=== PATIENT | female | born 1980 | race Caucasian/White ===

== ENCOUNTER → 2017-11-16 20:30 | Outpatient (CLI) | payer OTHER, SELFPAY | PROVIDERS: Family Provider Family Medicine; PCP Family Medicine; Visit Provider Physician Assistant | DX: N30.00 Acute cystitis without hematuria (principal) | CPT/HCPCS: 87086 ==

== ENCOUNTER 2017-11-20 13:00 | Emergency (ER) | payer OTHER, SELFPAY ==
[2017-11-20 13:05] VITALS: BP 182/95; PULSE 74; RESP 15; TEMP 36.9; O2SAT 100; BMI 36.8
--- NOTE | 2017-11-20 13:08 | ED.FEMALEGU ---
HPI - Female Genitourinary General Chief complaint: Urogenital-Female Stated complaint: STATES BLADDER INFECTION NOT GETTING BETTER Time Seen by Provider: 11/20/17 13:08 History of Present Illness HPI Narrative: 37-year-old female here for complaint of having urinary tract infection that is not improving after being placed on Macrobid. She was seen at the walk-in clinic and had urinalysis that was positive for leuko esterase. Urine culture was obtained that did not grow any results. She states she is having symptoms of dysuria and now she also reports having some flank pain. She states that she has had some left pelvic pain for the last several months and that she has a history of having a cyst to that area. She also states she has had a little bit of whitish vaginal discharge. She denies any fevers or chills. She denies any changes in sexual partners. No other concerns or complaints at this time. MD Complaint: UTI and vaginal discharge Related Data Home Medications Medication Instructions Recorded Confirmed losartan 50 mg PO BID #0 08/27/16 11/16/17 buspirone 0.5 tab PO BID #0 01/25/17 11/16/17 Previous Rx's Medication Instructions Recorded nystatin-triamcinolone 1 evi TOPICAL BID #15 gm 11/26/16 loperamide [Imodium A-D] 1 mg PO PRN PRN #30 ml 04/22/17 ondansetron [Zofran ODT] 4 mg SUBLINGUAL Q6HP PRN #10 odt 04/22/17 hydrocodone-acetaminophen 1 tab PO Q6HP PRN #30 tab 05/15/17 diazepam 5 mg PO TID PRN #15 tab 07/23/17 nitrofurantoin 100 mg PO BID 7 Days #14 cap 11/16/17 monohydrate/macrocrystals 100 mg capsule ciprofloxacin HCl 500 mg PO BID #14 tab 11/20/17 hydrocodone-acetaminophen 1 tab PO Q4-6H PRN #5 tab 11/20/17 Allergies Allergy/AdvReac Type Severity Reaction Status Date / Time No Known Drug Allergies Allergy Verified 11/20/17 13:05 Review of Systems Constitutional Denies chills, Denies fever(s), Denies lethargy and Denies weakness Eyes Denies change in vision, Denies eye discharge, Denies irritation and Denies loss of vision ENT Ears, Nose, Mouth, and Throat: Denies change in voice, Denies neck pain and Denies sore throat Cardiovascular Denies chest pain, Denies irregular heart rhythm, Denies lightheadedness, Denies palpitations, Denies dyspnea, Denies dyspnea on exertion and Denies orthopnea Respiratory Denies cough, Denies dyspnea, Denies dyspnea on exertion and Denies wheezing Gastrointestinal Gastrointestinal: Denies abdominal pain, Denies change in bowel habits, Denies diarrhea, Denies nausea and Denies vomiting Genitourinary Reports dysuria Musculoskeletal Denies neck pain Neurologic Denies loss of vision and Denies weakness Endocrine Denies palpitations Allergic/Immunologic Denies wheezing [facility] Medical History Pelvic pain (Acute) Social History Smoking Status: Never smoker Exam Initial Vital Signs Initial Vital Signs: Vital Signs Temperature 98.4 F 11/20/17 13:05 Pulse Rate 74 11/20/17 13:05 Respiratory Rate 15 11/20/17 13:05 Blood Pressure 182/95 H 11/20/17 13:05 Pulse Oximetry 100 11/20/17 13:05 Const General: cooperative and well developed Nutritional Appearance: well nourished Orientation: alert, awake, oriented x3 and not confused [facility] Mouth: oral mucosae normal and moist mucous membranes Eyes Conjunctivae: conjunctivae normal Sclera: sclerae normal Pupils: PERRL EOM: EOM intact bilaterally Resp Effort & Inspection: normal respiratory effort, able to speak in complete sentences, no respiratory distress and no use of accessory muscles Auscultation: clear to auscultation bilaterally, no rales, no rhonchi and no wheezes Cardio Rate: regular rate Rhythm: regular rhythm Heart Sounds: no click, no gallops, no murmurs and no rubs Pulses: normal peripheral pulses GI Inspection: non-distended Palpation: soft, no hepatosplenomegaly, No guarding, No pulsatile mass and tender (Tenderness to suprapubic region and to left pelvic region) Auscultation: normal bowel sounds Speculum Exam - Vagina: normal appearance of the vagina and abnormal vaginal discharge white Speculum Exam - Cervix: normal appearance of the cervix Bimanual Exam- Vagina & Uterus: normal bimanual exam and normal vaginal palpation Bimanual Exam- Adnexa, other: normal adnexae, adnexae mobile and no tenderness Skin General: no rashes or lesions noted, No jaundice and No petechiae Neuro General: alert, oriented x3, gait normal and no focal motor deficits Speech: speech normal Course Orders Ordered: ED Orders 11/20/17 15:30 Complete Blood Count AUTO DIFF Stat Comprehensive Metabolic Panel Stat 11/20/17 15:47 US pelvic complete Stat 11/20/17 15:50 Test Urine Stat Urine Culture Stat Urine Microscopic Stat Wet Prep Tric BV Lacey Stat Discontinued Medications Ceftriaxone Sodium/Dextrose (Rocephin) 1 gm in 50 mls @ 100 mls/hr IV NOW ONE Stop: 11/20/17 17:48 Last Infusion: 11/20/17 17:55 Dose: 0 mls/hr Admin: 11/20/17 17:25 Dose: 100 mls/hr Ketorolac Tromethamine (Toradol) 30 mg IV NOW ONE Stop: 11/20/17 16:46 Last Admin: 11/20/17 16:46 Dose: 30 mg Vital Signs - 8 hr 11/20/17 13:30 11/20/17 15:23 11/20/17 15:26 Temperature 98.6 F Pulse Rate 78 77 Respiratory Rate 22 16 Blood Pressure [Left Arm] 131/70 H 147/90 H 147/90 H Pulse Oximetry 100 11/20/17 17:56 Temperature Pulse Rate 72 Respiratory Rate 15 Blood Pressure [Left Arm] 149/81 H Pulse Oximetry 100 MDM - Female Genitourinary Lab Data Result diagrams: 11/20/17 15:30 11/20/17 15:30 Lab Results 11/20/17 11/20/17 11/20/17 Range/Units 15:30 15:30 15:50 WBC 10.9 (4.5-11.0) X10^3/uL RBC 4.57 (4.0-5.2) X10^6/uL Hgb 11.4 L (12.0-16.0) g/dL Hct 34.3 L (36-46) % MCV 75.1 L (80-100) fL MCH 24.9 L (26-34) PG MCHC 33.2 (30-36) % RDW 16.2 H (11.6-14.8) % Plt Count 374 (150-400) X10^3/uL Neut % (Auto) 61.5 (50-75) % Lymph % (Auto) 29.8 (25-40) % Chester % (Auto) 6.3 (3-14) % Eos % (Auto) 1.7 L (2-4) % Baso % (Auto) 0.7 (0-2) % Neut # (Auto) 6700 H (9769-2737) /uL Sodium 140 (137-145) mmol/L Potassium 3.9 (3.4-5.1) mmol/L Chloride 102 (98-107) mmol/L Carbon Dioxide 28 (22-32) mmol/L BUN 12 (7-17) mg/dL Creatinine 0.80 (0.52-1.04) mg/dL Estimated GFR > 60.0 (>60) mL/min BUN/Creatinine Ratio 15.0 (6-22) Glucose 104 H (70-100) mg/dL Calcium 9.3 (8.4-10.2) mg/dL Total Bilirubin 0.6 (0.2-1.3) mg/dL AST 23 (14-36) IU/L ALT 32 (9-52) IU/L Alkaline Phosphatase 65 (38-126) U/L Total Protein 7.4 (6.3-8.2) g/dL Albumin 4.4 (3.5-5.0) g/dL Globulin 3.0 (1.7-4.1) g/dL Albumin/Globulin Ratio 1.5 (1.0-2.8) Urine RBC 0-1/hpf (0-5/HPF) Urine WBC 1-5/hpf (0-5/HPF) Ur Squamous Epith Cells 5-10 /hpf H Urine Bacteria Few (2-10) H (None) Ur Culture Indicated? Specimen cultured Micro UA Comment Not Reportable Urine Test (Negative) 11/20/17 Range/Units 15:50 WBC (4.5-11.0) X10^3/uL RBC (4.0-5.2) X10^6/uL Hgb (12.0-16.0) g/dL Hct (36-46) % MCV (80-100) fL MCH (26-34) PG MCHC (30-36) % RDW (11.6-14.8) % Plt Count (150-400) X10^3/uL Neut % (Auto) (50-75) % Lymph % (Auto) (25-40) % Chester % (Auto) (3-14) % Eos % (Auto) (2-4) % Baso % (Auto) (0-2) % Neut # (Auto) (6259-5083) /uL Sodium (137-145) mmol/L Potassium (3.4-5.1) mmol/L Chloride (98-107) mmol/L Carbon Dioxide (22-32) mmol/L BUN (7-17) mg/dL Creatinine (0.52-1.04) mg/dL Estimated GFR (>60) mL/min BUN/Creatinine Ratio (6-22) Glucose (70-100) mg/dL Calcium (8.4-10.2) mg/dL Total Bilirubin (0.2-1.3) mg/dL AST (14-36) IU/L ALT (9-52) IU/L Alkaline Phosphatase (38-126) U/L Total Protein (6.3-8.2) g/dL Albumin (3.5-5.0) g/dL Globulin (1.7-4.1) g/dL Albumin/Globulin Ratio (1.0-2.8) Urine RBC (0-5/HPF) Urine WBC (0-5/HPF) Ur Squamous Epith Cells Urine Bacteria (None) Ur Culture Indicated? Micro UA Comment Urine Test Negative (Negative) Imaging Data Pelvic ultrasound: Radiologist's impression: Patient: Emmett Pan MR#: [id number] : 1980 Acct:[id number] Age/Sex: 37 / F Date of Service: 11/20/17 Loc: ED Accession Number: [id number] Procedure: US pelvic complete Ordering Provider: Miguel Mendes PROCEDURE: US PELVIC COMPLETE INDICATIONS: Suprapubic and left pelvic pain TECHNIQUE: Real-time scanning was performed of the pelvic organs, with image documentation. Additional endovaginal scanning was necessary due to incomplete visualization of the adnexal and endometrial structures by transabdominal scanning. COMPARISON: [facility], CT, KIDNEY/ URETER/BLADDER, 05/15/2017, 15:23. [facility], US, PELVIC COMPLETE, 07/25/2012, 11:13. [facility], , PELVIS WITHOUT CONTRAST, 10/27/2012, 18:25. [facility], PELVIC COMPLETE, 12/17/2014, 14:07. [facility], PELVIC COMPLETE, 08/27/2016, 22:05. [facility], , PELVIC COMPLETE, 11/26/2016, 16:54. FINDINGS: Transabdominal scanning: Limited scanning through the kidneys shows no hydronephrosis. No pathologic free abdominal or pelvic fluid. Endovaginal scanning: Uterus: Uterus is normal in size at 11.3 x 5.1 x 6.3 cm. IUD appears appropriately positioned. The endometrium is not well seen secondary to presence of intrauterine device, however no gross sonographic abnormalities identified. Incidental note made of small nabothian cysts. Ovaries: Right adnexa measures 2.8 x 2.5 x 2.4 cm. Left adnexa measures 3.8 x 2.2 x 4.7 cm. There is a 7.8 x 6.2 x 6.7 cm left adnexal cyst which is increased in size compared to prior examinations. Doppler evaluation demonstrates flow to the adnexa bilaterally. IMPRESSION: 1. IUD demonstrated centrally in the endometrium. 2. Persistent left ovarian cyst which is increased in size compared to prior examinations. Recommend gynecology consultation and MRI of the pelvis (gynecologic protocol) to exclude cystic neoplasm. 3. No evidence of adnexal torsion identified in the current study. Please note ultrasound cannot exclude intermittent or partial torsion. Dictated by: Indira Heredia MD, PhD on 11/20/2017 at 16:01 Approved by: Indira Heredia MD, PhD on 11/20/2017 at 16:10 [facility] Narrative Medical decision making narrative: CBC and Chem panel were obtained were unremarkable. Urinalysis does show 1-5 white blood cells. Due to her symptoms not improving with the dysuria and also the flank pain will change antibiotic from Macrobid over to ciprofloxacin. She was given 1 g of Rocephin here in the emergency room. Wet prep was obtained was negative. No adnexal tenderness was appreciated on exam. Ultrasound of the pelvic region shows a 8 cm left adnexal cyst which has increased in size from last imaging. Will have patient follow up with manager of photography next week. [id number] Tylenol or Motrin as needed for any discomfort. For any worsening symptoms return to the emergency room. Discharge Plan Departure Patient Disposition: Home, Self-Care Clinical Impression: Urinary tract infection, Ovarian cyst Discharge Date/Time: 11/20/17 18:10 Interventions: ED Discharge Assessment Last Done: 11/20/17 18:10 Instructions: DI for Ovarian Cyst Activity Restrictions/Additional Instructions: Since symptoms of the urinary tract infection have not improved and you feel like you are having flank pain which is consistent with starting kidney infection, you were given IV antibiotics in the emergency room and change of oral antibiotics. ANTIBIOTICS changed from Macrobid to ciprofloxacin, use as directed. Plenty of fluids. Ultrasound of the left pelvic region shows a cyst to the left ovary area and seems larger than what it was last time It was imaged last year. Follow up with [employer] integration architect for further evaluation and monitoring. Use [id number] Tylenol or Motrin as needed for any discomfort. For breakthrough pain a a small amount of [place] is prescribed use as directed, no driving while on the [place] as it can cause drowsiness.. Follow up with your primary care provider next week for further evaluation. For any worsening symptoms return to the emergency room. Prescriptions: New ciprofloxacin HCl 500 mg tablet 500 mg PO BID Qty: 14 RF: 0 hydrocodone-acetaminophen 5-325 mg tablet 1 tab PO Q4-6H PRN (Reason: pain) Qty: 5 RF: 0 No Action nitrofurantoin monohyd/m-cryst [Macrobid] 100 mg capsule 100 mg PO BID 7 Days Qty: 14 RF: 0 losartan 50 MG tablet 50 mg PO BID Qty: 0 RF: 0 nystatin-triamcinolone 15 GM cream 1 evi Topical BID Qty: 15 RF: 2 buspirone 15 MG tablet 0.5 tab PO BID Qty: 0 RF: 0 ondansetron [Zofran ODT] 4 MG tablet,disintegrating 4 mg Sublingual Q6HP PRNQty: 10 RF: 1 loperamide [Imodium A-D] 1 MG/7.5 ML liquid 1 mg PO PRN PRNQty: 30 RF: 1 hydrocodone-acetaminophen 5 MG/325 MG tablet 1 tab PO Q6HP PRNQty: 30 RF: 0 diazepam 5 MG tablet 5 mg PO TID PRNQty: 15 RF: 0 Referrals: Chapin Fallon MD [Primary Care Provider] -
[2017-11-20 13:30] VITALS: BP 131/70; PULSE 78; RESP 22
[2017-11-20 15:23] VITALS: BP 147/90
[2017-11-20 15:26] VITALS: BP 147/90; PULSE 77; RESP 16; TEMP 37; O2SAT 100
--- NOTE | 2017-11-20 15:47 | DI.US.S_ITS ---
PROCEDURE: US PELVIC COMPLETE INDICATIONS: Suprapubic and left pelvic pain TECHNIQUE: Real-time scanning was performed of the pelvic organs, with image documentation. Additional endovaginal scanning was necessary due to incomplete visualization of the adnexal and endometrial structures by transabdominal scanning. COMPARISON: [facility], CT, KIDNEY/ URETER/BLADDER, 05/15/2017, 15:23. [facility], US, PELVIC COMPLETE, 07/25/2012, 11:13. [facility], MR, PELVIS WITHOUT CONTRAST, 10/27/2012, 18:25. [facility], US, PELVIC COMPLETE, 12/17/2014, 14:07. [facility], US, PELVIC COMPLETE, 08/27/2016, 22:05. [facility], US, PELVIC COMPLETE, 11/26/2016, 16:54. FINDINGS: Transabdominal scanning: Limited scanning through the kidneys shows no hydronephrosis. No pathologic free abdominal or pelvic fluid. Endovaginal scanning: Uterus: Uterus is normal in size at 11.3 x 5.1 x 6.3 cm. IUD appears appropriately positioned. The endometrium is not well seen secondary to presence of intrauterine device, however no gross sonographic abnormalities identified. Incidental note made of small nabothian cysts. Ovaries: Right adnexa measures 2.8 x 2.5 x 2.4 cm. Left adnexa measures 3.8 x 2.2 x 4.7 cm. There is a 7.8 x 6.2 x 6.7 cm left adnexal cyst which is increased in size compared to prior examinations. Doppler evaluation demonstrates flow to the adnexa bilaterally. IMPRESSION: 1. IUD demonstrated centrally in the endometrium. 2. Persistent left ovarian cyst which is increased in size compared to prior examinations. Recommend gynecology consultation and MRI of the pelvis (gynecologic protocol) to exclude cystic neoplasm. 3. No evidence of adnexal torsion identified in the current study. Please note ultrasound cannot exclude intermittent or partial torsion. Dictated by: Indira Heredia MD, PhD on 11/20/2017 at 16:01 Approved by: Indira Heredia MD, PhD on 11/20/2017 at 16:10
[2017-11-20 15:54] LABS: Add Manual Diff / Slide Review NO; Basophils Percent Auto 0.7 % (0-2); Eosinophils Percent Auto 1.7 % (2-4); Hematocrit 34.3 % (36-46); Hemoglobin 11.4 g/dL (12.0-16.0); Lymphocytes Percent Auto 29.8 % (25-40); Mean Corpuscular HGB Conc 33.2 % (30-36); Mean Corpuscular Hemoglobin 24.9 PG (26-34); Mean Corpuscular Volume 75.1 fL (80-100); Monocytes Percent Auto 6.3 % (3-14); Neutrophils Absolute Auto 6700 /uL (3000-5900); Neutrophils Percent Auto 61.5 % (50-75); Platelet Count 374 X10^3/uL (150-400); Red Blood Cell Count 4.57 X10^6/uL (4.0-5.2); Red Cell Distribution Width 16.2 % (11.6-14.8); White Blood Cell Count 10.9 X10^3/uL (4.5-11.0)
[2017-11-20 16:00] LABS: Alanine Aminotransferase 32 IU/L (9-52); Albumin 4.4 g/dL (3.5-5.0); Albumin Globulin Ratio 1.5 (1.0-2.8); Alkaline Phosphatase 65 U/L (38-126); Aspartate Aminotransferase 23 IU/L (14-36); Bilirubin Total 0.6 mg/dL (0.2-1.3); Blood Urea Nitrogen 12 mg/dL (7-17); Calcium 9.3 mg/dL (8.4-10.2); Carbon Dioxide 28 mmol/L (22-32); Chloride 102 mmol/L (98-107); Estimated Glomerular Filt Rate > 60.0 mL/min (>60); Glucose 104 mg/dL (70-100); HEMOLYSIS < 15 (0-50); Potassium 3.9 mmol/L (3.4-5.1); Sodium 140 mmol/L (137-145); Total Protein 7.4 g/dL (6.3-8.2)
[2017-11-20 16:45] LABS: Bacteria Urine Few (2-10); RBC Urine 0-1/HPF (0-5/HPF); Squamous Epithelial Cell Urine 5-10 /HPF; WBC Urine 1-5/HPF (0-5/HPF)
[2017-11-20] MEDS: KETOROLAC 60 MG/2 ML VIAL 30 MG IV (16:46)
[2017-11-20 16:47] LABS: Pregnancy Test Urine Negative (Negative)
[2017-11-20 16:49] LABS: Culture Indicated Urine Specimen Cultured
[2017-11-20] MEDS: CEFTRIAXONE 1 GM/50 ML FROZ.PIGGY IV (17:25)
[2017-11-20 17:56] VITALS: BP 149/81; PULSE 72; RESP 15; O2SAT 100
== END 2017-11-20 18:10 | disposition home or self-care (01) ==
PROVIDERS: Emergency Provider Nurse Practitioner Family; Family Provider Family Medicine; PCP Family Medicine
DX: N39.0 Urinary tract infection, site not specified (principal); N83.209 Unspecified ovarian cyst, unspecified side
CPT/HCPCS: 36591; 76830; 76856; 80053; 81015; 81025; 85025; 87086; 87210; 96365; 96375; 99283; 99284; J1885

== ENCOUNTER → 2018-02-06 13:00 | Outpatient (CLI) | payer OTHER, SELFPAY | PROVIDERS: Family Provider Family Medicine; PCP Family Medicine | DX: Z23 Encounter for immunization (principal) | CPT/HCPCS: 90471; 90686 ==

== ENCOUNTER → 2018-02-25 07:43 | Outpatient (CLI) | payer OTHER, SELFPAY ==
--- NOTE | 2018-02-25 08:07 | DI.CT.S_ITS ---
PROCEDURE: CT LUMBAR SPINE WO CON INDICATIONS: back pain TECHNIQUE: Noncontrast 3 mm thick sections acquired from the T12 level to the sacrum. Sagittal and coronal reformats were constructed. For radiation dose reduction, the following was used: automated exposure control. COMPARISON: None. FINDINGS: Image quality: Excellent. Bones: There is normal bony alignment. No acute vertebral body compression fractures. No suspicious lytic or blastic bony lesions. Small Schmorl's node noted in the inferior endplate of the L2 vertebral body. Central spinal caliber is of normal overall caliber. No pars defects. T12-L1: Disc height is normal. No central stenosis. No neural foraminal narrowing. No definite neural impingement. L1-L2: Disc height is normal. No central stenosis. No neural foraminal narrowing. No definite neural impingement. L2-L3: Disc height is normal. No central stenosis. No neural foraminal narrowing. No definite neural impingement. L3-L4: Disc height is normal. No central stenosis. No neural foraminal narrowing. No definite neural impingement. L4-L5: Disc height is normal. Minimal anterior endplate osteophytosis. No central stenosis. No neural foraminal narrowing. No definite neural impingement. L5-S1: Disc height is normal. Minimal anterior endplate osteophytosis. No central stenosis. No neural foraminal narrowing. No definite neural impingement. Minimal bilateral facet hypertrophy. Soft tissues: No retroperitoneal masses or hematomas. Visualized aorta is normal in caliber. Scattered atherosclerotic calcifications noted in the abdominal aorta and the visualized pelvic vasculature. IMPRESSION: 1. Minimal L4-L5 and L5-S1 degenerative disc disease. 2. Minimal L5-S1 facet arthropathy. 3. No central stenosis 4. No neural foraminal narrowing 5. No definite neural impingement. Dictated by: Indira Heredia MD, PhD on 02/25/2018 at 9:56 Approved by: Indira Heredia MD, PhD on 02/25/2018 at 10:12
== END ==
PROVIDERS: Family Provider Family Medicine; PCP Family Medicine; Visit Provider Nurse Practitioner Family
DX: M54.9 Dorsalgia, unspecified (principal); M54.41 Lumbago with sciatica, right side; M54.42 Lumbago with sciatica, left side
CPT/HCPCS: 72131

== ENCOUNTER → 2018-04-01 16:46 | Outpatient (CLI) | payer OTHER, SELFPAY | PROVIDERS: Family Provider Family Medicine; PCP Family Medicine; Visit Provider Physician Assistant | DX: L02.91 Cutaneous abscess, unspecified (principal) | CPT/HCPCS: 87070; 87075; 87205 ==

== ENCOUNTER → 2018-04-03 10:30 | Outpatient (CLI) | payer OTHER, SELFPAY | PROVIDERS: Family Provider Family Medicine; PCP Family Medicine; Visit Provider Physician Assistant | DX: L02.211 Cutaneous abscess of abdominal wall (principal) | CPT/HCPCS: 87070; 87075; 87205 ==

== ENCOUNTER 2018-04-04 14:19 | Emergency (ER) | payer OTHER, SELFPAY ==
[2018-04-04 14:27] VITALS: BP 184/109; PULSE 82; RESP 18; TEMP 37; O2SAT 99; BMI 37.0
--- NOTE | 2018-04-04 15:17 | ED_ITS ---
HPI - Skin/Abscess/Foreign Bdy <MALCOLM Mann - Last Filed: 04/04/18 19:56> General Chief complaint: Skin/Abscess/Foreign Body Stated complaint: Wound under R breast Time Seen by Provider: 04/04/18 14:41 Source: patient and family Mode of arrival: ambulatory Limitations: no limitations History of Present Illness HPI narrative: Patient is a 38-year-old female nonsmoker who presents with her significant other for a chief complaint of an abscess underneath her right breast. She has had an incision and drainage in the walk-in clinic on 04/01. She was started on cephalexin at this point time. She return to the walk-in clinic on 04/03 to have her packing removed with a complaint of worsening pain and was started on clindamycin at that point in time. Wound cultures were taken both visits. Patient denies fever, denies nausea vomiting. She does note diarrhea since she started the clindamycin. She denies abdominal pain. She comes in the emergency department today because the pain and concern about erythema. Preliminary culture results from 04/03 visit show no growth. Culture results from 04/01 show 1+ Gram-positive cocci Related Data Home Medications Medication Instructions Recorded Confirmed losartan 50 mg PO BID #0 08/27/16 04/06/18 methotrexate (PF) 20 mg/0.4 mL 20 mg SUBCUT QWEEK 03/11/18 04/06/18 subcutaneous auto-injector alprazolam 0.25 mg PO .ONCE PRN 04/04/18 04/06/18 cephalexin 500 mg PO BIDX10 04/04/18 04/06/18 clindamycin HCl 300 mg PO QIDX7 04/04/18 04/06/18 folic acid 1 mg PO DAILY 04/04/18 04/06/18 Allergies Allergy/AdvReac Type Severity Reaction Status Date / Time No Known Drug Allergies Allergy Verified 04/06/18 11:53 Review of Systems <MALCOLM Mann - Last Filed: 04/04/18 19:56> Review of Systems GENERAL: Denies chills, fatigue, malaise, fever, sweats. HEENT: Denies sinus pain, ear pain, sore throat, difficulty swallowing, dizziness. RESPIRATORY: Denies dyspnea, cough, wheezing, hemoptysis, sputum. CARDIOVASCULAR: Denies chest pain, palpitations, orthopnea, edema, GASTROINTESTINAL: Denies nausea, vomiting, abdominal pain, diarrhea, constipation, melena. : Denies dysuria, frequency, incontinence, hematuria, urinary retention. MUSCULOSKELETAL: denies weakness, joint pain, or bony pain SKIN: See HPI NEUROLOGIC: Denies weakness, headache, numbness, change in speech, confusion, seizures, incoordination. PSYCHIATRIC: No concerning psychosocial issues. 12 point review of systems is negative except for those stated above Exam <MELANIE MannBC - Last Filed: 04/04/18 19:56> Narrative Exam Narrative: GENERAL: This is a well-nourished, well-developed patient, in no acute distress HEAD: Atraumatic. Normocephalic. No temporal or scalp tenderness. EYES: Pupils equal round and reactive. Extraocular motions intact. No scleral icterus. No injection or drainage. ENT: Nose without bleeding, purulent drainage or septal hematoma. Throat without erythema, tonsillar hypertrophy or exudate. Uvula midline. Airway patent. NECK: Trachea midline. No JVD or lymphadenopathy. Supple, nontender, no meningeal signs. CARDIOVASCULAR: Regular rate and rhythm without murmurs, gallops, or rubs. RESPIRATORY: Clear to auscultation. Breath sounds equal bilaterally. No wheezes , rales, or rhonchi. No cough. No increased resp effiort. GASTROINTESTINAL: Abdomen soft, non-tender, nondistended. No hepato-splenomegaly , or palpable masses. No guarding. EXTREMITIES: No clubbing, cyanosis, or edema. No joint tenderness, effusion, or edema noted. BACK: Nontender without deformity or crepitance. No flank tenderness. NEURO: AOx3. SKIN: Incision and drainage slight distal to right breast is clean and dry. Packing tail is present. No surrounding erythema from incision site. Noted to have slight erythema in shape of Tegaderm. no palpable fluctuance Initial Vital Signs Initial Vital Signs: Vital Signs Temperature 98.6 F 04/04/18 14:27 Pulse Rate 82 04/04/18 14:27 Respiratory Rate 18 04/04/18 14:27 Blood Pressure 184/109 H 04/04/18 14:27 Pulse Oximetry 99 04/04/18 14:27 <Glory Bedolla DO - Last Filed: 04/06/18 21:05> Initial Vital Signs Initial Vital Signs: Vital Signs Temperature 98.6 F 04/04/18 14:27 Pulse Rate 82 04/04/18 14:27 Respiratory Rate 18 04/04/18 14:27 Blood Pressure 184/109 H 04/04/18 14:27 Pulse Oximetry 99 04/04/18 14:27 Course <MELANIE Mann - Last Filed: 04/04/18 19:56> Orders Ordered: ED Orders 04/04/18 16:00 Complete Blood Count AUTO DIFF Stat Comprehensive Metabolic Panel Stat Lactate (Lactic Acid) Stat Vital Signs - 8 hr 04/04/18 14:27 04/04/18 17:04 Temperature 98.6 F Pulse Rate 82 74 Respiratory Rate 18 18 Blood Pressure 184/109 H Blood Pressure [Left Arm] 159/89 H Pulse Oximetry 99 98 <Glory Bedolla DO - Last Filed: 04/06/18 21:05> Orders Ordered: ED Orders 04/04/18 16:00 Complete Blood Count AUTO DIFF Stat Comprehensive Metabolic Panel Stat Lactate (Lactic Acid) Stat Vital Signs - 8 hr 04/04/18 14:27 04/04/18 17:04 Temperature 98.6 F Pulse Rate 82 74 Respiratory Rate 18 18 Blood Pressure 184/109 H Blood Pressure [Left Arm] 159/89 H Pulse Oximetry 99 98 MDM - Skin/Abscess/Foreign Bdy <MELANIE Mann - Last Filed: 04/04/18 19:56> Lab Data Result diagrams: 04/04/18 16:00 04/04/18 16:00 Lab Results 04/04/18 04/04/18 04/04/18 Range/Units 16:00 16:00 16:00 WBC 9.4 (4.5-11.0) X10^3/uL RBC 4.61 (4.0-5.2) X10^6/uL Hgb 11.0 L (12.0-16.0) g/dL Hct 34.5 L (36-46) % MCV 74.9 L (80-100) fL MCH 23.9 L (26-34) PG MCHC 31.9 (30-36) % RDW 16.0 H (11.6-14.8) % Plt Count 375 (150-400) X10^3/uL Neut % (Auto) 64.8 (50-75) % Lymph % (Auto) 27.2 (25-40) % [place] % (Auto) 5.7 (3-14) % Eos % (Auto) 1.6 L (2-4) % Baso % (Auto) 0.7 (0-2) % Neut # (Auto) 6100 (2170-7449) /uL Sodium 141 (137-145) mmol/L Potassium 4.0 (3.4-5.1) mmol/L Chloride 102 (98-107) mmol/L Carbon Dioxide 26 (22-32) mmol/L BUN 13 (7-17) mg/dL Creatinine 0.70 (0.52-1.04) mg/dL Estimated GFR > 60.0 (>60) mL/min BUN/Creatinine Ratio 18.6 (6-22) Glucose 91 (70-100) mg/dL Lactate 0.5 L (0.7-2.1) mmol/L Calcium 9.2 (8.4-10.2) mg/dL Total Bilirubin 0.8 (0.2-1.3) mg/dL AST 27 (14-36) IU/L ALT 27 (9-52) IU/L Alkaline Phosphatase 66 (38-126) U/L Total Protein 7.4 (6.3-8.2) g/dL Albumin 4.3 (3.5-5.0) g/dL Globulin 3.1 (1.7-4.1) g/dL Albumin/Globulin Ratio 1.4 (1.0-2.8) MDM Narrative Medical decision making narrative: Patient presents requesting a check of the site of her recent incision and drainage. She is afebrile, normotensive not tachycardic and has no signs of sepsis. The site looks good, with no extending erythema. She just started clindamycin yesterday, so I believe that has not had a chance to kick in completely yet. She does not have an elevated lactate does not have an elevated WBC. I do not see any changes necessary to her current therapy at this point time. I discussed at length return precautions including vomiting, fever etc. I discussed follow-up with her primary care provider. She had no questions or concerns upon discharge. <Glory Bedolla, DO - Last Filed: 04/06/18 21:05> Lab Data Lab Results 04/04/18 04/04/18 04/04/18 Range/Units 16:00 16:00 16:00 WBC 9.4 (4.5-11.0) X10^3/uL RBC 4.61 (4.0-5.2) X10^6/uL Hgb 11.0 L (12.0-16.0) g/dL Hct 34.5 L (36-46) % MCV 74.9 L (80-100) fL MCH 23.9 L (26-34) PG MCHC 31.9 (30-36) % RDW 16.0 H (11.6-14.8) % Plt Count 375 (150-400) X10^3/uL Neut % (Auto) 64.8 (50-75) % Lymph % (Auto) 27.2 (25-40) % [place] % (Auto) 5.7 (3-14) % Eos % (Auto) 1.6 L (2-4) % Baso % (Auto) 0.7 (0-2) % Neut # (Auto) 6100 (0686-4604) /uL Sodium 141 (137-145) mmol/L Potassium 4.0 (3.4-5.1) mmol/L Chloride 102 (98-107) mmol/L Carbon Dioxide 26 (22-32) mmol/L BUN 13 (7-17) mg/dL Creatinine 0.70 (0.52-1.04) mg/dL Estimated GFR > 60.0 (>60) mL/min BUN/Creatinine Ratio 18.6 (6-22) Glucose 91 (70-100) mg/dL Lactate 0.5 L (0.7-2.1) mmol/L Calcium 9.2 (8.4-10.2) mg/dL Total Bilirubin 0.8 (0.2-1.3) mg/dL AST 27 (14-36) IU/L ALT 27 (9-52) IU/L Alkaline Phosphatase 66 (38-126) U/L Total Protein 7.4 (6.3-8.2) g/dL Albumin 4.3 (3.5-5.0) g/dL Globulin 3.1 (1.7-4.1) g/dL Albumin/Globulin Ratio 1.4 (1.0-2.8) Discharge Plan Departure Patient Disposition: Home Clinical Impression: Abscess of skin or subcutaneous tissue Discharge Date/Time: 04/04/18 17:14 Interventions: ED Discharge Assessment Last Done: 04/04/18 17:13 Instructions: DI for Skin Abscess Activity Restrictions/Additional Instructions: I do not see any reason to change your antibiotics today. Please follow-up with her primary care provider as discussed. He will have normal WBC count and normal lactate. You do not have a fever in the emergency department. Please continue the clindamycin, Keflex and follow up with her primary care provider and a scheduled. Monitor for fever and vomiting. Please be re-evaluated if any of these occur. Prescriptions: No Action methotrexate (PF) 20 mg/0.4 mL auto-injector 20 mg SUBCUT QWEEK RF: 0 losartan 50 MG tablet 50 mg PO BID Qty: 0 RF: 0 alprazolam 0.25 mg tablet 0.25 mg PO .ONCE PRN (Reason: prior to flight) RF: 0 clindamycin HCl 300 mg capsule 300 mg PO QIDX7 RF: 0 cephalexin 500 mg capsule 500 mg PO BIDX10 RF: 0 folic acid 1 mg Tablet 1 mg PO DAILY RF: 0 Referrals: Chapin Fallon MD [Primary Care Provider] - <Glory Bedolla DO - Last Filed: 04/06/18 21:05> Cosign ED Attending Delfinoature Attestation: I was immediately available in the department for consultation. This documentation has been reviewed and I agree with assessment and plan. Supervised by Glory Bedolla DO
[2018-04-04 16:15] LABS: Add Manual Diff / Slide Review NO; Basophils Percent Auto 0.7 % (0-2); Eosinophils Percent Auto 1.6 % (2-4); Hematocrit 34.5 % (36-46); Lymphocytes Percent Auto 27.2 % (25-40); Mean Corpuscular HGB Conc 31.9 % (30-36); Mean Corpuscular Hemoglobin 23.9 PG (26-34); Mean Corpuscular Volume 74.9 fL (80-100); Monocytes Percent Auto 5.7 % (3-14); Neutrophils Absolute Auto 6100 /uL (1500-7000); Neutrophils Percent Auto 64.8 % (50-75); Platelet Count 375 X10^3/uL (150-400); Red Blood Cell Count 4.61 X10^6/uL (4.0-5.2); White Blood Cell Count 9.4 X10^3/uL (4.5-11.0)
--- NOTE | 2018-04-04 16:19 | PC.NURSE ---
Applied emla cream to site, packing gauze in place, covered with a 2x2 sterile gauze and paper tape. area around site of previous tegaderm is reddened and pt denies adhesive reactions. pt instructed on new dressing change, answered pt's questions and sent home with some supplies. pt will follow up on Saturday.
[2018-04-04 16:26] LABS: Alanine Aminotransferase 27 IU/L (9-52); Albumin 4.3 g/dL (3.5-5.0); Albumin Globulin Ratio 1.4 (1.0-2.8); Alkaline Phosphatase 66 U/L (38-126); Aspartate Aminotransferase 27 IU/L (14-36); BUN Creatinine Ratio 18.6 (6-22); Bilirubin Total 0.8 mg/dL (0.2-1.3); Blood Urea Nitrogen 13 mg/dL (7-17); Calcium 9.2 mg/dL (8.4-10.2); Carbon Dioxide 26 mmol/L (22-32); Chloride 102 mmol/L (98-107); Estimated Glomerular Filt Rate > 60.0 mL/min (>60); Globulin 3.1 g/dL (1.7-4.1); Glucose 91 mg/dL (70-100); HEMOLYSIS < 15 (0-50); Sodium 141 mmol/L (137-145); Total Protein 7.4 g/dL (6.3-8.2)
[2018-04-04 16:27] LABS: Lactate (Lactic Acid) 0.5 mmol/L (0.7-2.1)
[2018-04-04 17:04] VITALS: BP 159/89; PULSE 74; RESP 18; O2SAT 98
== END 2018-04-04 17:14 | disposition home or self-care (01) ==
PROVIDERS: Emergency Provider Nurse Practitioner Family; Family Provider Family Medicine; PCP Family Medicine
DX: N61.1 Abscess of the breast and nipple (principal)
CPT/HCPCS: 36415; 80053; 83605; 85025; 99282; 99283

== ENCOUNTER → 2018-04-18 14:59 | Outpatient (CLI) | payer OTHER, SELFPAY ==
[2018-04-18 16:01] LABS: Add Manual Diff / Slide Review NO; Basophils Percent Auto 0.8 % (0-2); Hematocrit 35.2 % (36-46); Hemoglobin 11.3 g/dL (12.0-16.0); Mean Corpuscular HGB Conc 32.2 % (30-36); Mean Corpuscular Hemoglobin 24.2 PG (26-34); Monocytes Percent Auto 6.9 % (3-14); Neutrophils Absolute Auto 5900 /uL (1500-7000); Neutrophils Percent Auto 61.3 % (50-75); Platelet Count 345 X10^3/uL (150-400); Red Blood Cell Count 4.69 X10^6/uL (4.0-5.2); Red Cell Distribution Width 15.3 % (11.6-14.8); White Blood Cell Count 9.6 X10^3/uL (4.5-11.0)
[2018-04-18 16:14] LABS: Alanine Aminotransferase 31 IU/L (9-52); Albumin 4.4 g/dL (3.5-5.0); Albumin Globulin Ratio 1.4 (1.0-2.8); Alkaline Phosphatase 64 U/L (38-126); Aspartate Aminotransferase 21 IU/L (14-36); BUN Creatinine Ratio 23.3 (6-22); Bilirubin Total 0.8 mg/dL (0.2-1.3); Blood Urea Nitrogen 14 mg/dL (7-17); C-Reactive Protein Quant 1.4 mg/dL (<1.0); Calcium 9.4 mg/dL (8.4-10.2); Carbon Dioxide 28 mmol/L (22-32); Chloride 103 mmol/L (98-107); Estimated Glomerular Filt Rate > 60.0 mL/min (>60); Globulin 3.1 g/dL (1.7-4.1); Glucose 80 mg/dL (70-100); HEMOLYSIS < 15 (0-50); Sodium 141 mmol/L (137-145); Total Protein 7.5 g/dL (6.3-8.2)
[2018-04-18 16:28] LABS: Erythrocyte Sedimentation Rate 31 MM/HR (0-20)
[2018-04-22 13:50] LABS: QuantiFERON TB NEGATIVE (Negative)
== END ==
PROVIDERS: Family Provider Family Medicine; PCP Family Medicine; Visit Provider Internal Medicine Rheumatology
DX: M06.09 Rheumatoid arthritis without rheumatoid factor, multiple sites (principal); Z79.899 Other long term (current) drug therapy
CPT/HCPCS: 36415; 80053; 85025; 85651; 86140; 86480; 86704; 86803; 87340

== ENCOUNTER 2018-07-19 17:03 | Emergency (ER) | payer OTHER, SELFPAY ==
[2018-07-19] VITALS (9 sets, daily range): BP systolic 93–133; BP diastolic 57–85; PULSE 102–125; RESP 15–29; TEMP 37; O2SAT 97–100; BMI 36.7
[2018-07-19] MEDS: ONDANSETRON 4 MG/2 ML INJ IV (17:45)
[2018-07-19] MEDS: SODIUM CHLORIDE 0.9% 1,000 ML 1000 ML IV ×3 (17:45→20:22)
--- NOTE | 2018-07-19 17:48 | PC.NURSE ---
Pt very pale at triage. Pt has felt most of the day like she will pass out with changing position and standing.
[2018-07-19 17:58] LABS: Add Manual Diff / Slide Review NO; Basophils Absolute Auto 0 /uL (0-100); Basophils Percent Auto 0.3 % (0-2); Eosinophils Absolute Auto 100 /uL (0-450); Eosinophils Percent Auto 0.6 % (2-4); Hematocrit 34.9 % (36-46); Hemoglobin 11.3 g/dL (12.0-16.0); Lymphocytes Absolute Auto 700 /uL (1100-4500); Lymphocytes Percent Auto 7.4 % (25-40); Mean Corpuscular HGB Conc 32.3 % (30-36); Mean Corpuscular Hemoglobin 24.2 PG (26-34); Mean Corpuscular Volume 74.8 fL (80-100); Monocytes Absolute Auto 600 /uL (0-900); Monocytes Percent Auto 6.2 % (3-14); Neutrophils Absolute Auto 7800 /uL (1500-7000); Neutrophils Percent Auto 85.5 % (50-75); Platelet Count 308 X10^3/uL (150-400); Red Blood Cell Count 4.67 X10^6/uL (4.0-5.2); Red Cell Distribution Width 16.1 % (11.6-14.8); White Blood Cell Count 9.2 X10^3/uL (4.5-11.0)
--- NOTE | 2018-07-19 18:00 | ED_ITS ---
HPI - Nausea/Vomiting/Diarrhea <RADHA Mann-BC - Last Filed: 07/19/18 21:24> General Chief complaint: Nausea/Vomiting/Diarrhea Stated complaint: VOMITING,NOT FEELING WELL AT ALL Time Seen by Provider: 07/19/18 17:20 Source: patient Mode of arrival: ambulatory Limitations: no limitations History of Present Illness HPI Narrative: The patient is a 38-year-old female with history of rheumatoid arthritis who is a former smoker who presents with a chief complaint of sudden onset nausea vomiting this morning. She states she had fevers but is afebrile in check-in. She has some diffuse abdominal pain. she was seen by her primary care physician a few days ago and was started on doxycycline for a possible infection. She states she has vomited 8-10 times today. She denies any chest pain, shortness of breath. She does complain of an occasional sore throat. she came in this evening because she started feeling lightheaded when she was up and walking around. She also complains of transient tingling in both of her hands. Related Data Home Medications Medication Instructions Recorded Confirmed losartan 50 mg PO BID #0 08/27/16 07/17/18 methotrexate (PF) 20 mg/0.4 mL 20 mg SUBCUT QWEEK 03/11/18 07/17/18 subcutaneous auto-injector folic acid 1 mg PO DAILY 04/04/18 07/17/18 Previous Rx's Medication Instructions Recorded doxycycline monohydrate 100 mg 100 mg PO BID #20 cap 07/17/18 capsule prednisone 20 mg tablet See Rx Instructions PO DAILY #15 07/17/18 tab Allergies Allergy/AdvReac Type Severity Reaction Status Date / Time No Known Drug Allergies Allergy Verified 07/19/18 17:21 Review of Systems <MELANIE MannBC - Last Filed: 07/19/18 21:24> Review of Systems GENERAL: Denies chills, fatigue, malaise, fever, sweats. HEENT: Denies sinus pain, ear pain, sore throat, difficulty swallowing, dizziness. RESPIRATORY: Denies dyspnea, cough, wheezing, hemoptysis, sputum. CARDIOVASCULAR: Denies chest pain, palpitations, orthopnea, edema, GASTROINTESTINAL: See HPI : Denies dysuria, frequency, incontinence, hematuria, urinary retention. MUSCULOSKELETAL: See HPI SKIN: Denies rash, skin lesions, or other NEUROLOGIC: Denies weakness, headache, numbness, change in speech, confusion, seizures, incoordination. PSYCHIATRIC: No concerning psychosocial issues. 12 point review of systems is negative except for those stated above PFSH <MALCOLM Mann - Last Filed: 07/19/18 21:24> Social History Smoking Status: Former smoker Tobacco: How many years used: 3 second hand exposure: No alcohol intake: current (beer 3 times a year. Only on special occasions.) substance use type: does not use Exam <MALCOLM Mann - Last Filed: 07/19/18 21:24> Narrative Exam Narrative: GENERAL: Obese female lying on stretcher HEAD: Atraumatic. Normocephalic. No temporal or scalp tenderness. EYES: Pupils equal round and reactive. Extraocular motions intact. No scleral icterus. No injection or drainage. ENT: Nose without bleeding, purulent drainage or septal hematoma. Throat without erythema, tonsillar hypertrophy or exudate. Uvula midline. Airway patent. NECK: Trachea midline. No JVD or lymphadenopathy. Supple, nontender, no meningeal signs. CARDIOVASCULAR: Regular rate and rhythm without murmurs, gallops, or rubs. RESPIRATORY: Clear to auscultation. Breath sounds equal bilaterally. No wheezes, rales, or rhonchi. No cough. No accessory muscle use. No increased respiratory effort. GASTROINTESTINAL: Abdomen soft, nondistended. No hepato-splenomegaly, or palpable masses. No guarding. diffuse tenderness to palpation. active bowel sounds all 4 quadrants. EXTREMITIES: No clubbing, cyanosis, or edema. No joint tenderness, effusion, or edema noted. BACK: Nontender without deformity or crepitance. No flank tenderness. NEURO: AOx3. SKIN: No rash or erythema. Initial Vital Signs Initial Vital Signs: Vital Signs Temperature 98.6 F 07/19/18 17:21 Pulse Rate 108 H 07/19/18 17:21 Respiratory Rate 15 07/19/18 17:21 Blood Pressure 93/57 L 07/19/18 17:21 Pulse Oximetry 98 07/19/18 17:21 <Gisselle Celis DO - Last Filed: 07/20/18 00:52> Initial Vital Signs Initial Vital Signs: Vital Signs Temperature 98.6 F 07/19/18 17:21 Pulse Rate 108 H 07/19/18 17:21 Respiratory Rate 15 07/19/18 17:21 Blood Pressure 93/57 L 07/19/18 17:21 Pulse Oximetry 98 07/19/18 17:21 <Gisselle Celis DO - Last Filed: 07/20/18 00:52> PERC Score Age greater than or equal to 50 years: No Heart rate greater than or equal to 100 bpm: Yes Room Air O2 Sat less than 95%: No Unilateral leg swelling: No Recent trauma or surgery: No Hemoptysis: No Prior PE or DVT: No Hormone Use: No Total PERC Score: 1 Wells' Criteria for PE Clinical signs and symptoms of PE: No PE is #1 Dx or equally likely: No Heart rate > 100: Yes Immobilization at least 3 days or surg in previous 4 weeks: No History of PE or DVT: No Hemoptysis: No Malignancy w/Treatment within 6 months or palliative: No Wells' PE Score total: 1.5 Course <RADHA Mann-BC - Last Filed: 07/19/18 21:24> Orders Ordered: ED Orders 07/19/18 17:20 Amylase Stat Complete Blood Count AUTO DIFF Stat Comprehensive Metabolic Panel Stat Lactate (Lactic Acid) Stat Lipase Stat 07/19/18 17:28 D Dimer Stat Magnesium Stat Phosphorous Stat 07/19/18 17:46 Influenza A and B by PCR Rapid Stat 07/19/18 17:49 Troponin & CK Cardiac Panel Stat 07/19/18 20:04 EKG-12 Lead Stat Discontinued Medications Sodium Chloride (Normal Saline 0.9%) 1,000 mls @ 1,000 mls/hr IV BOLUS ONE Stop: 07/19/18 18:28 Last Infusion: 07/19/18 18:51 Dose: 0 mls/hr Admin: 07/19/18 17:45 Dose: 1,000 mls/hr Sodium Chloride (Normal Saline 0.9%) 1,000 mls @ 1,000 mls/hr IV BOLUS ONE Stop: 07/19/18 19:14 Last Infusion: 07/19/18 19:51 Dose: 0 mls/hr Admin: 07/19/18 18:53 Dose: 1,000 mls/hr Sodium Chloride (Normal Saline 0.9%) 1,000 mls @ 1,000 mls/hr IV BOLUS ONE Stop: 07/19/18 20:56 Last Infusion: 07/19/18 20:35 Dose: 0 mls/hr Admin: 07/19/18 20:22 Dose: 1,000 mls/hr Sodium Chloride (Normal Saline 0.9%) 1,000 mls @ 1,000 mls/hr IV BOLUS ONE Stop: 07/19/18 21:07 Ketorolac Tromethamine (Toradol) 30 mg IV NOW ONE Stop: 07/19/18 19:33 Last Admin: 07/19/18 19:50 Dose: 30 mg Magnesium Oxide (Mag Ox) 400 mg PO DAILY EBONIE Last Admin: 07/19/18 21:25 Dose: 400 mg Ondansetron HCl (Zofran) 4 mg IV NOW ONE Stop: 07/19/18 17:30 Last Admin: 07/19/18 17:45 Dose: 4 mg Pantoprazole Sodium (Protonix) 40 mg IV NOW ONE Stop: 07/19/18 19:33 Last Admin: 07/19/18 19:50 Dose: 40 mg Vital Signs - 8 hr 07/19/18 17:21 07/19/18 17:46 07/19/18 18:30 Temperature 98.6 F Pulse Rate 108 H 108 H 116 H Pulse Rate [Orthostatic Lying] Pulse Rate [Orthostatic Sitting] Pulse Rate [Orthostatic Standing] Respiratory Rate 15 25 H 21 Blood Pressure 93/57 L Blood Pressure [Left Arm] 115/64 133/73 Blood Pressure [Orthostatic Lying] Blood Pressure [Orthostatic Sitting] Blood Pressure [Orthostatic Standing] Pulse Oximetry 98 100 100 07/19/18 19:30 07/19/18 19:53 07/19/18 20:45 Temperature Pulse Rate 114 H 113 H Pulse Rate [Orthostatic Lying] 116 H Pulse Rate [Orthostatic Sitting] 125 H Pulse Rate [Orthostatic Standing] 121 H Respiratory Rate 18 29 H Blood Pressure Blood Pressure [Left Arm] 125/68 123/62 Blood Pressure [Orthostatic Lying] 128/74 Blood Pressure [Orthostatic Sitting] 133/85 Blood Pressure [Orthostatic Standing] 127/76 Pulse Oximetry 98 98 07/19/18 21:30 07/19/18 21:34 07/19/18 21:58 Temperature Pulse Rate 102 H 103 H Pulse Rate [Orthostatic Lying] Pulse Rate [Orthostatic Sitting] Pulse Rate [Orthostatic Standing] Respiratory Rate 21 18 Blood Pressure 129/73 Blood Pressure [Left Arm] 126/73 Blood Pressure [Orthostatic Lying] Blood Pressure [Orthostatic Sitting] Blood Pressure [Orthostatic Standing] Pulse Oximetry 97 99 99 <Gisselle Celis, DO - Last Filed: 07/20/18 00:52> Orders Ordered: ED Orders 07/19/18 17:20 Amylase Stat Complete Blood Count AUTO DIFF Stat Comprehensive Metabolic Panel Stat Lactate (Lactic Acid) Stat Lipase Stat 07/19/18 17:28 D Dimer Stat Magnesium Stat Phosphorous Stat 07/19/18 17:46 Influenza A and B by PCR Rapid Stat 07/19/18 17:49 Troponin & CK Cardiac Panel Stat 07/19/18 20:04 EKG-12 Lead Stat Discontinued Medications Sodium Chloride (Normal Saline 0.9%) 1,000 mls @ 1,000 mls/hr IV BOLUS ONE Stop: 07/19/18 18:28 Last Infusion: 07/19/18 18:51 Dose: 0 mls/hr Admin: 07/19/18 17:45 Dose: 1,000 mls/hr Sodium Chloride (Normal Saline 0.9%) 1,000 mls @ 1,000 mls/hr IV BOLUS ONE Stop: 07/19/18 19:14 Last Infusion: 07/19/18 19:51 Dose: 0 mls/hr Admin: 07/19/18 18:53 Dose: 1,000 mls/hr Sodium Chloride (Normal Saline 0.9%) 1,000 mls @ 1,000 mls/hr IV BOLUS ONE Stop: 07/19/18 20:56 Last Infusion: 07/19/18 20:35 Dose: 0 mls/hr Admin: 07/19/18 20:22 Dose: 1,000 mls/hr Sodium Chloride (Normal Saline 0.9%) 1,000 mls @ 1,000 mls/hr IV BOLUS ONE Stop: 07/19/18 21:07 Ketorolac Tromethamine (Toradol) 30 mg IV NOW ONE Stop: 07/19/18 19:33 Last Admin: 07/19/18 19:50 Dose: 30 mg Magnesium Oxide (Mag Ox) 400 mg PO DAILY EBONIE Last Admin: 07/19/18 21:25 Dose: 400 mg Ondansetron HCl (Zofran) 4 mg IV NOW ONE Stop: 07/19/18 17:30 Last Admin: 07/19/18 17:45 Dose: 4 mg Pantoprazole Sodium (Protonix) 40 mg IV NOW ONE Stop: 07/19/18 19:33 Last Admin: 07/19/18 19:50 Dose: 40 mg Vital Signs - 8 hr 07/19/18 17:21 07/19/18 17:46 07/19/18 18:30 Temperature 98.6 F Pulse Rate 108 H 108 H 116 H Pulse Rate [Orthostatic Lying] Pulse Rate [Orthostatic Sitting] Pulse Rate [Orthostatic Standing] Respiratory Rate 15 25 H 21 Blood Pressure 93/57 L Blood Pressure [Left Arm] 115/64 133/73 Blood Pressure [Orthostatic Lying] Blood Pressure [Orthostatic Sitting] Blood Pressure [Orthostatic Standing] Pulse Oximetry 98 100 100 07/19/18 19:30 07/19/18 19:53 07/19/18 20:45 Temperature Pulse Rate 114 H 113 H Pulse Rate [Orthostatic Lying] 116 H Pulse Rate [Orthostatic Sitting] 125 H Pulse Rate [Orthostatic Standing] 121 H Respiratory Rate 18 29 H Blood Pressure Blood Pressure [Left Arm] 125/68 123/62 Blood Pressure [Orthostatic Lying] 128/74 Blood Pressure [Orthostatic Sitting] 133/85 Blood Pressure [Orthostatic Standing] 127/76 Pulse Oximetry 98 98 07/19/18 21:30 07/19/18 21:34 07/19/18 21:58 Temperature Pulse Rate 102 H 103 H Pulse Rate [Orthostatic Lying] Pulse Rate [Orthostatic Sitting] Pulse Rate [Orthostatic Standing] Respiratory Rate 21 18 Blood Pressure 129/73 Blood Pressure [Left Arm] 126/73 Blood Pressure [Orthostatic Lying] Blood Pressure [Orthostatic Sitting] Blood Pressure [Orthostatic Standing] Pulse Oximetry 97 99 99 MDM - Nausea/Vomiting/Diarrhea <MALCOLM Mann - Last Filed: 07/19/18 21:24> Lab Data Attestation: I reviewed the patient's lab results. Hemoglobin and hematocrit are within patient's normal limits. Result diagrams: 07/19/18 17:20 07/19/18 17:20 Lab Results 04/10/0107/19/18 07/19/18 Range/Units 17:20 17:20 17:20 WBC 9.2 (4.5-11.0) X10^3/uL RBC 4.67 (4.0-5.2) X10^6/uL Hgb 11.3 L (12.0-16.0) g/dL Hct 34.9 L (36-46) % MCV 74.8 L (80-100) fL MCH 24.2 L (26-34) PG MCHC 32.3 (30-36) % RDW 16.1 H (11.6-14.8) % Plt Count 308 (150-400) X10^3/uL Neut % (Auto) 85.5 H (50-75) % Lymph % (Auto) 7.4 L (25-40) % [place] % (Auto) 6.2 (3-14) % Eos % (Auto) 0.6 L (2-4) % Baso % (Auto) 0.3 (0-2) % Neut # (Auto) 7800 H (3463-4891) /uL Lymph # (Auto) 700 L (2762-3961) /uL [place] # (Auto) 600 (0-900) /uL Eos # (Auto) 100 (0-450) /uL Baso # (Auto) 0 (0-100) /uL D-Dimer (<230) ng/mL Sodium 136 L (137-145) mmol/L Potassium 3.7 (3.4-5.1) mmol/L Chloride 102 (98-107) mmol/L Carbon Dioxide 25 (22-32) mmol/L BUN 18 H (7-17) mg/dL Creatinine 0.90 (0.52-1.04) mg/dL Estimated GFR > 60.0 (>60) mL/min BUN/Creatinine Ratio 20.0 (6-22) Glucose 121 H (70-100) mg/dL Lactate 1.5 (0.7-2.1) mmol/L Calcium 7.9 L (8.4-10.2) mg/dL Phosphorus (2.5-4.5) mg/dL Magnesium (1.6-2.3) mg/dL Total Bilirubin 1.1 (0.2-1.3) mg/dL AST 16 (14-36) IU/L ALT 31 (9-52) IU/L Alkaline Phosphatase 61 (38-126) U/L Total Creatine Kinase (30-135) U/L CK-MB (CK-2) CK-MB (CK-2) Rel Index Troponin I (0.01-0.034) ng/mL Total Protein 6.7 (6.3-8.2) g/dL Albumin 3.9 (3.5-5.0) g/dL Globulin 2.8 (1.7-4.1) g/dL Albumin/Globulin Ratio 1.4 (1.0-2.8) Amylase 34 (30-110) U/L Lipase 71 (23-300) U/L Influenza A & B (PCR) (Negative) 07/19/18 07/19/18 07/19/18 Range/Units 17:28 17:28 17:46 WBC (4.5-11.0) X10^3/uL RBC (4.0-5.2) X10^6/uL Hgb (12.0-16.0) g/dL Hct (36-46) % MCV (80-100) fL MCH (26-34) PG MCHC (30-36) % RDW (11.6-14.8) % Plt Count (150-400) X10^3/uL Neut % (Auto) (50-75) % Lymph % (Auto) (25-40) % [place] % (Auto) (3-14) % Eos % (Auto) (2-4) % Baso % (Auto) (0-2) % Neut # (Auto) (8962-0992) /uL Lymph # (Auto) (3420-6191) /uL [place] # (Auto) (0-900) /uL Eos # (Auto) (0-450) /uL Baso # (Auto) (0-100) /uL D-Dimer 225 (<230) ng/mL Sodium (137-145) mmol/L Potassium (3.4-5.1) mmol/L Chloride (98-107) mmol/L Carbon Dioxide (22-32) mmol/L BUN (7-17) mg/dL Creatinine (0.52-1.04) mg/dL Estimated GFR (>60) mL/min BUN/Creatinine Ratio (6-22) Glucose (70-100) mg/dL Lactate (0.7-2.1) mmol/L Calcium (8.4-10.2) mg/dL Phosphorus 3.8 (2.5-4.5) mg/dL Magnesium 1.5 L (1.6-2.3) mg/dL Total Bilirubin (0.2-1.3) mg/dL AST (14-36) IU/L ALT (9-52) IU/L Alkaline Phosphatase (38-126) U/L Total Creatine Kinase (30-135) U/L CK-MB (CK-2) CK-MB (CK-2) Rel Index Troponin I (0.01-0.034) ng/mL Total Protein (6.3-8.2) g/dL Albumin (3.5-5.0) g/dL Globulin (1.7-4.1) g/dL Albumin/Globulin Ratio (1.0-2.8) Amylase (30-110) U/L Lipase (23-300) U/L Influenza A & B (PCR) Negative (Negative) 07/19/18 Range/Units 17:49 WBC (4.5-11.0) X10^3/uL RBC (4.0-5.2) X10^6/uL Hgb (12.0-16.0) g/dL Hct (36-46) % MCV (80-100) fL MCH (26-34) PG MCHC (30-36) % RDW (11.6-14.8) % Plt Count (150-400) X10^3/uL Neut % (Auto) (50-75) % Lymph % (Auto) (25-40) % [place] % (Auto) (3-14) % Eos % (Auto) (2-4) % Baso % (Auto) (0-2) % Neut # (Auto) (5237-9036) /uL Lymph # (Auto) (2791-3036) /uL [place] # (Auto) (0-900) /uL Eos # (Auto) (0-450) /uL Baso # (Auto) (0-100) /uL D-Dimer (<230) ng/mL Sodium (137-145) mmol/L Potassium (3.4-5.1) mmol/L Chloride (98-107) mmol/L Carbon Dioxide (22-32) mmol/L BUN (7-17) mg/dL Creatinine (0.52-1.04) mg/dL Estimated GFR (>60) mL/min BUN/Creatinine Ratio (6-22) Glucose (70-100) mg/dL Lactate (0.7-2.1) mmol/L Calcium (8.4-10.2) mg/dL Phosphorus (2.5-4.5) mg/dL Magnesium (1.6-2.3) mg/dL Total Bilirubin (0.2-1.3) mg/dL AST (14-36) IU/L ALT (9-52) IU/L Alkaline Phosphatase (38-126) U/L Total Creatine Kinase 39 (30-135) U/L CK-MB (CK-2) TNP CK-MB (CK-2) Rel Index TNP Troponin I < 0.012 (0.01-0.034) ng/mL Total Protein (6.3-8.2) g/dL Albumin (3.5-5.0) g/dL Globulin (1.7-4.1) g/dL Albumin/Globulin Ratio (1.0-2.8) Amylase (30-110) U/L Lipase (23-300) U/L Influenza A & B (PCR) (Negative) Point of Care Testing Test Results Negative Urine Dip Bedside Urine Glucose Negative Bedside Urine Bilirubin - Negative Bedside Urine Ketone - Negative Urine Specific [place] 1.025 Bedside Urine Occult Blood - Negative Bedside Urine pH 5.5 Bedside Urine Protein - Negative Bedside Urine Urobilinogen - Negative Bedside Urine Nitrite - Negative Bedside Urine Leukocytes - Negative Esterase ECG Data Attestation: I personally reviewed and interpreted this ECG as follows: Interpretation: Sinus tachycardia. One hundred [address]. No [address] elevation depression noted. no ectopy noted. [facility] Narrative Medical decision making narrative: The patient is a 38-year-old female who presents with chief complaint of vomiting and nausea since earlier today. She has Zofran at home, but did not take it. She had a CBC, CMP, amylase, lipase and lactate drawn. These were all relatively within normal limits. her nausea was treated with Zofran. She was given 3 L IV fluid. She had a negative set of orthostatics. She was given Toradol for headache. She stated after the Toradol as she had no pain whatsoever. Given her persistent tachycardia, I did obtain an EKG which was sinus tach as well as a D-dimer which was negative. She also had a negative troponin. On her 3rd L, the patient's heart rate decreased. The patient felt better throughout her stay in the emergency department. I did offer her prescription of Zofran upon discharge, but the patient stated she had plenty. I encouraged to follow up with her primary care provider. Discussed return precautions to the emergency department including inability keep down fluids or acute concerns. <Gisselle Celis, DO - Last Filed: 07/20/18 00:52> Lab Data Lab Results 07/19/18 07/19/18 07/19/18 Range/Units 17:20 17:20 17:20 WBC 9.2 (4.5-11.0) X10^3/uL RBC 4.67 (4.0-5.2) X10^6/uL Hgb 11.3 L (12.0-16.0) g/dL Hct 34.9 L (36-46) % MCV 74.8 L (80-100) fL MCH 24.2 L (26-34) PG MCHC 32.3 (30-36) % RDW 16.1 H (11.6-14.8) % Plt Count 308 (150-400) X10^3/uL Neut % (Auto) 85.5 H (50-75) % Lymph % (Auto) 7.4 L (25-40) % [place] % (Auto) 6.2 (3-14) % Eos % (Auto) 0.6 L (2-4) % Baso % (Auto) 0.3 (0-2) % Neut # (Auto) 7800 H (7112-9941) /uL Lymph # (Auto) 700 L (6282-7133) /uL [place] # (Auto) 600 (0-900) /uL Eos # (Auto) 100 (0-450) /uL Baso # (Auto) 0 (0-100) /uL D-Dimer (<230) ng/mL Sodium 136 L (137-145) mmol/L Potassium 3.7 (3.4-5.1) mmol/L Chloride 102 (98-107) mmol/L Carbon Dioxide 25 (22-32) mmol/L BUN 18 H (7-17) mg/dL Creatinine 0.90 (0.52-1.04) mg/dL Estimated GFR > 60.0 (>60) mL/min BUN/Creatinine Ratio 20.0 (6-22) Glucose 121 H (70-100) mg/dL Lactate 1.5 (0.7-2.1) mmol/L Calcium 7.9 L (8.4-10.2) mg/dL Phosphorus (2.5-4.5) mg/dL Magnesium (1.6-2.3) mg/dL Total Bilirubin 1.1 (0.2-1.3) mg/dL AST 16 (14-36) IU/L ALT 31 (9-52) IU/L Alkaline Phosphatase 61 (38-126) U/L Total Creatine Kinase (30-135) U/L CK-MB (CK-2) CK-MB (CK-2) Rel Index Troponin I (0.01-0.034) ng/mL Total Protein 6.7 (6.3-8.2) g/dL Albumin 3.9 (3.5-5.0) g/dL Globulin 2.8 (1.7-4.1) g/dL Albumin/Globulin Ratio 1.4 (1.0-2.8) Amylase 34 (30-110) U/L Lipase 71 (23-300) U/L Influenza A & B (PCR) (Negative) 07/19/18 07/19/18 07/19/18 Range/Units 17:28 17:28 17:46 WBC (4.5-11.0) X10^3/uL RBC (4.0-5.2) X10^6/uL Hgb (12.0-16.0) g/dL Hct (36-46) % MCV (80-100) fL MCH (26-34) PG MCHC (30-36) % RDW (11.6-14.8) % Plt Count (150-400) X10^3/uL Neut % (Auto) (50-75) % Lymph % (Auto) (25-40) % [place] % (Auto) (3-14) % Eos % (Auto) (2-4) % Baso % (Auto) (0-2) % Neut # (Auto) (5915-1427) /uL Lymph # (Auto) (3509-7147) /uL [place] # (Auto) (0-900) /uL Eos # (Auto) (0-450) /uL Baso # (Auto) (0-100) /uL D-Dimer 225 (<230) ng/mL Sodium (137-145) mmol/L Potassium (3.4-5.1) mmol/L Chloride (98-107) mmol/L Carbon Dioxide (22-32) mmol/L BUN (7-17) mg/dL Creatinine (0.52-1.04) mg/dL Estimated GFR (>60) mL/min BUN/Creatinine Ratio (6-22) Glucose (70-100) mg/dL Lactate (0.7-2.1) mmol/L Calcium (8.4-10.2) mg/dL Phosphorus 3.8 (2.5-4.5) mg/dL Magnesium 1.5 L (1.6-2.3) mg/dL Total Bilirubin (0.2-1.3) mg/dL AST (14-36) IU/L ALT (9-52) IU/L Alkaline Phosphatase (38-126) U/L Total Creatine Kinase (30-135) U/L CK-MB (CK-2) CK-MB (CK-2) Rel Index Troponin I (0.01-0.034) ng/mL Total Protein (6.3-8.2) g/dL Albumin (3.5-5.0) g/dL Globulin (1.7-4.1) g/dL Albumin/Globulin Ratio (1.0-2.8) Amylase (30-110) U/L Lipase (23-300) U/L Influenza A & B (PCR) Negative (Negative) 07/19/18 Range/Units 17:49 WBC (4.5-11.0) X10^3/uL RBC (4.0-5.2) X10^6/uL Hgb (12.0-16.0) g/dL Hct (36-46) % MCV (80-100) fL MCH (26-34) PG MCHC (30-36) % RDW (11.6-14.8) % Plt Count (150-400) X10^3/uL Neut % (Auto) (50-75) % Lymph % (Auto) (25-40) % [place] % (Auto) (3-14) % Eos % (Auto) (2-4) % Baso % (Auto) (0-2) % Neut # (Auto) (1497-5544) /uL Lymph # (Auto) (0514-3832) /uL [place] # (Auto) (0-900) /uL Eos # (Auto) (0-450) /uL Baso # (Auto) (0-100) /uL D-Dimer (<230) ng/mL Sodium (137-145) mmol/L Potassium (3.4-5.1) mmol/L Chloride (98-107) mmol/L Carbon Dioxide (22-32) mmol/L BUN (7-17) mg/dL Creatinine (0.52-1.04) mg/dL Estimated GFR (>60) mL/min BUN/Creatinine Ratio (6-22) Glucose (70-100) mg/dL Lactate (0.7-2.1) mmol/L Calcium (8.4-10.2) mg/dL Phosphorus (2.5-4.5) mg/dL Magnesium (1.6-2.3) mg/dL Total Bilirubin (0.2-1.3) mg/dL AST (14-36) IU/L ALT (9-52) IU/L Alkaline Phosphatase (38-126) U/L Total Creatine Kinase 39 (30-135) U/L CK-MB (CK-2) TNP CK-MB (CK-2) Rel Index TNP Troponin I < 0.012 (0.01-0.034) ng/mL Total Protein (6.3-8.2) g/dL Albumin (3.5-5.0) g/dL Globulin (1.7-4.1) g/dL Albumin/Globulin Ratio (1.0-2.8) Amylase (30-110) U/L Lipase (23-300) U/L Influenza A & B (PCR) (Negative) Point of Care Testing Test Results Negative Urine Dip Bedside Urine Glucose Negative Bedside Urine Bilirubin - Negative Bedside Urine Ketone - Negative Urine Specific [place] 1.025 Bedside Urine Occult Blood - Negative Bedside Urine pH 5.5 Bedside Urine Protein - Negative Bedside Urine Urobilinogen - Negative Bedside Urine Nitrite - Negative Bedside Urine Leukocytes - Negative Esterase ECG Data Attestation: I personally reviewed and interpreted this ECG as follows: Prior ECG tracings: available for review Interpretation: Sinus tachycardia rate 117 NM interval [address] changes no S waves in T-wave inversion MDM Narrative Medical decision making narrative: Patient's heart rate did improve significantly. The D-dimer negative and low risk for PE. History of vomiting and overall improved after 3 L of IV fluids. Discharge Plan Departure Patient Disposition: Home Clinical Impression: Acute dehydration Nausea & vomiting Qualifiers: Vomiting type: unspecified Vomiting Intractability: non-intractable Qualified Code(s): R11.2 - Nausea with vomiting, unspecified Discharge Date/Time: 07/19/18 21:59 Interventions: ED Discharge Assessment Last Done: 07/19/18 21:58 Instructions: DI for Dehydration -- Adult, DI for Nausea -- Adult, DI for Vomiting -- Adult Activity Restrictions/Additional Instructions: Today we did lots of lab work, which all came back normal for you. He received 3 L of fluid, IV Zofran for nausea IV Toradol for pain and Protonix for reflux related to vomiting. please do not take any ibuprofen for 6-8 hours after your Toradol. Please push fluids, rest. Please take your Zofran if needed. Please follow up with her primary care provider come back to emergency department for any acute concerns including inability keep down fluids. Prescriptions: No Action methotrexate (PF) 20 mg/0.4 mL auto-injector 20 mg SUBCUT QWEEK RF: 0 prednisone 20 mg tablet See Rx Instructions PO DAILY Qty: 15 RF: 0 doxycycline monohydrate 100 mg capsule 100 mg PO BID Qty: 20 RF: 0 losartan 50 MG tablet 50 mg PO BID Qty: 0 RF: 0 folic acid 1 mg Tablet 1 mg PO DAILY RF: 0 Referrals: Chapin Fallon MD [Primary Care Provider] - Stand Alone Forms: Work Release Note <Gisselle Celis DO - Last Filed: 07/20/18 00:52> Cosign ED Attending Cosignature Attestation: I was immediately available in the department for consultation. Documentation has been reviewed. I agree with assessment and plan.
[2018-07-19 18:04] LABS: Alanine Aminotransferase 31 IU/L (9-52); Albumin 3.9 g/dL (3.5-5.0); Albumin Globulin Ratio 1.4 (1.0-2.8); Alkaline Phosphatase 61 U/L (38-126); Amylase 34 U/L (30-110); Aspartate Aminotransferase 16 IU/L (14-36); Bilirubin Total 1.1 mg/dL (0.2-1.3); Blood Urea Nitrogen 18 mg/dL (7-17); Calcium 7.9 mg/dL (8.4-10.2); Carbon Dioxide 25 mmol/L (22-32); Chloride 102 mmol/L (98-107); Estimated Glomerular Filt Rate > 60.0 mL/min (>60); Globulin 2.8 g/dL (1.7-4.1); Glucose 121 mg/dL (70-100); HEMOLYSIS < 15 (0-50); Lipase 71 U/L (23-300); Potassium 3.7 mmol/L (3.4-5.1); Sodium 136 mmol/L (137-145); Total Protein 6.7 g/dL (6.3-8.2)
[2018-07-19 18:05] LABS: Lactate (Lactic Acid) 1.5 mmol/L (0.7-2.1)
[2018-07-19 18:08] LABS: Magnesium 1.5 mg/dL (1.6-2.3); Phosphorous 3.8 mg/dL (2.5-4.5)
[2018-07-19 18:10] LABS: Influenza A and B by PCR Rapid Negative (Negative)
--- NOTE | 2018-07-19 18:54 | PC.NURSE ---
Pt feeling better after 1L NS. Pt color has improved,no longer pale. Pt denies nausea at this time.
[2018-07-19] MEDS: PANTOPRAZOLE 40 MG VIAL IV (19:50)
[2018-07-19] MEDS: KETOROLAC 60 MG/2 ML VIAL 30 MG IV (19:50)
[2018-07-19 20:13] LABS: Creatine Kinase 39 U/L (30-135)
[2018-07-19 20:24] LABS: D Dimer 225 ng/mL (<230)
[2018-07-19 20:25] LABS: Troponin I < 0.012 ng/mL (0.01-0.034)
[2018-07-19] MEDS: MAGNESIUM OXIDE 400 MG TABLET PO (21:25)
== END 2018-07-19 21:59 | disposition home or self-care (01) ==
PROVIDERS: Emergency Provider Nurse Practitioner Family; Family Provider Family Medicine; PCP Family Medicine
DX: E86.0 Dehydration (principal); R11.2 Nausea with vomiting, unspecified; R50.9 Fever, unspecified; R51 Headache; R10.9 Unspecified abdominal pain; R00.0 Tachycardia, unspecified; R20.2 Paresthesia of skin
CPT/HCPCS: 36591; 80053; 81003; 81025; 82150; 82550; 83605; 83690; 83735; 84100; 84484; 85025; 85379; 87400; 93005; 96361; 96374; 96375; 99284; 99285; C9113; J1885; J2405

== ENCOUNTER → 2018-10-15 12:39 | Outpatient (CLI) | payer OTHER, SELFPAY ==
[2018-10-15 12:58] LABS: Add Manual Diff / Slide Review NO; Basophils Absolute Auto 100 /uL (0-100); Basophils Percent Auto 0.9 % (0-2); Eosinophils Absolute Auto 200 /uL (0-450); Eosinophils Percent Auto 1.7 % (2-4); Hematocrit 33.8 % (36-46); Hemoglobin 10.8 g/dL (12.0-16.0); Lymphocytes Absolute Auto 3000 /uL (1100-4500); Mean Corpuscular Hemoglobin 23.7 PG (26-34); Mean Corpuscular Volume 74.2 fL (80-100); Monocytes Absolute Auto 600 /uL (0-900); Monocytes Percent Auto 6.2 % (3-14); Neutrophils Absolute Auto 5600 /uL (1500-7000); Neutrophils Percent Auto 59.2 % (50-75); Platelet Count 363 X10^3/uL (150-400); Red Blood Cell Count 4.55 X10^6/uL (4.0-5.2); Red Cell Distribution Width 15.8 % (11.6-14.8); White Blood Cell Count 9.5 X10^3/uL (4.5-11.0)
[2018-10-15 13:34] LABS: Alanine Aminotransferase 26 IU/L (9-52); Albumin 4.1 g/dL (3.5-5.0); Albumin Globulin Ratio 1.3 (1.0-2.8); Alkaline Phosphatase 67 U/L (38-126); Aspartate Aminotransferase 22 IU/L (14-36); BUN Creatinine Ratio 16.3 (6-22); Bilirubin Total 0.7 mg/dL (0.2-1.3); Blood Urea Nitrogen 13 mg/dL (7-17); Calcium 9.2 mg/dL (8.4-10.2); Carbon Dioxide 29 mmol/L (22-32); Chloride 103 mmol/L (98-107); Estimated Glomerular Filt Rate > 60.0 mL/min (>60); Globulin 3.2 g/dL (1.7-4.1); Glucose 94 mg/dL (70-100); HEMOLYSIS < 15 (0-50); Potassium 3.9 mmol/L (3.4-5.1); Sodium 140 mmol/L (137-145); Total Protein 7.3 g/dL (6.3-8.2)
[2018-10-15 13:40] LABS: Erythrocyte Sedimentation Rate 37 MM/HR (0-20)
== END ==
PROVIDERS: Family Provider Family Medicine; PCP Family Medicine; Visit Provider Internal Medicine Rheumatology
DX: M06.09 Rheumatoid arthritis without rheumatoid factor, multiple sites (principal); Z79.899 Other long term (current) drug therapy
CPT/HCPCS: 36415; 80053; 85025; 85651; 86140

== ENCOUNTER → 2019-03-02 08:01 | Outpatient (CLI) | payer OTHER, SELFPAY ==
[2019-03-02 08:53] LABS: Add Manual Diff / Slide Review NO; Basophils Absolute Auto 100 /uL (0-100); Basophils Percent Auto 0.8 % (0-2); Eosinophils Absolute Auto 100 /uL (0-450); Eosinophils Percent Auto 1.4 % (2-4); Hematocrit 33.6 % (36-46); Hemoglobin 11.1 g/dL (12.0-16.0); Lymphocytes Absolute Auto 2600 /uL (1100-4500); Lymphocytes Percent Auto 30.2 % (25-40); Mean Corpuscular HGB Conc 33.1 % (30-36); Mean Corpuscular Hemoglobin 24.1 PG (26-34); Mean Corpuscular Volume 72.9 fL (80-100); Monocytes Absolute Auto 500 /uL (0-900); Monocytes Percent Auto 5.6 % (3-14); Neutrophils Absolute Auto 5300 /uL (1500-7000); Platelet Count 336 X10^3/uL (150-400); White Blood Cell Count 8.6 X10^3/uL (4.5-11.0)
[2019-03-02 08:57] LABS: Alanine Aminotransferase 25 IU/L (<35); Albumin 4.1 g/dL (3.5-5.0); Albumin Globulin Ratio 1.5 (1.0-2.8); Alkaline Phosphatase 75 U/L (38-126); Aspartate Aminotransferase 18 IU/L (14-36); BUN Creatinine Ratio 21.4 (6-22); Bilirubin Total 0.6 mg/dL (0.2-1.3); Blood Urea Nitrogen 15 mg/dL (7-17); C-Reactive Protein Quant 1.9 mg/dL (<1.0); Calcium 9.1 mg/dL (8.4-10.2); Carbon Dioxide 29 mmol/L (22-32); Chloride 102 mmol/L (98-107); Estimated Glomerular Filt Rate > 60.0 mL/min (>60); Globulin 2.8 g/dL (1.7-4.1); Glucose 118 mg/dL (70-100); HEMOLYSIS < 15 (0-50); Potassium 4.1 mmol/L (3.4-5.1); Sodium 140 mmol/L (137-145); Total Protein 6.9 g/dL (6.3-8.2)
[2019-03-02 09:53] LABS: Erythrocyte Sedimentation Rate 35 MM/HR (0-20)
== END ==
PROVIDERS: Family Provider Family Medicine; PCP Family Medicine; Visit Provider Internal Medicine Rheumatology
DX: M06.09 Rheumatoid arthritis without rheumatoid factor, multiple sites (principal); Z79.899 Other long term (current) drug therapy
CPT/HCPCS: 36415; 80053; 85025; 85651; 86140

== ENCOUNTER → 2019-09-02 08:57 | Outpatient (CLI) | payer OTHER, SELFPAY ==
[2019-09-02 10:22] LABS: Add Manual Diff / Slide Review NO; Basophils Absolute Auto 100 /uL (0-100); Basophils Percent Auto 0.6 % (0-2); Eosinophils Absolute Auto 200 /uL (0-450); Eosinophils Percent Auto 1.8 % (2-4); Hematocrit 32.4 % (36-46); Hemoglobin 10.9 g/dL (12.0-16.0); Lymphocytes Absolute Auto 2800 /uL (1100-4500); Lymphocytes Percent Auto 29.3 % (25-40); Mean Corpuscular HGB Conc 33.6 % (30-36); Mean Corpuscular Hemoglobin 24.4 PG (26-34); Mean Corpuscular Volume 72.7 fL (80-100); Monocytes Absolute Auto 600 /uL (0-900); Monocytes Percent Auto 5.7 % (3-14); Neutrophils Absolute Auto 6100 /uL (1500-7000); Neutrophils Percent Auto 62.6 % (50-75); Platelet Count 367 X10^3/uL (150-400); Red Blood Cell Count 4.46 X10^6/uL (4.0-5.2); Red Cell Distribution Width 15.6 % (11.6-14.8); White Blood Cell Count 9.7 X10^3/uL (4.5-11.0)
[2019-09-02 10:55] LABS: Erythrocyte Sedimentation Rate 33 MM/HR (0-20)
[2019-09-02 11:03] LABS: Alanine Aminotransferase 34 IU/L (<35); Albumin 4.3 g/dL (3.5-5.0); Albumin Globulin Ratio 1.4 (1.0-2.8); Alkaline Phosphatase 73 U/L (38-126); Aspartate Aminotransferase 29 IU/L (14-36); BUN Creatinine Ratio 17.9 (6-22); Bilirubin Total 0.7 mg/dL (0.2-1.3); Blood Urea Nitrogen 12 mg/dL (7-17); C-Reactive Protein Quant 1.7 mg/dL (<1.0); Calcium 9.5 mg/dL (8.4-10.2); Carbon Dioxide 27 mmol/L (22-32); Chloride 102 mmol/L (98-107); Estimated Glomerular Filt Rate > 60.0 mL/min (>60); Globulin 3.1 g/dL (1.7-4.1); Glucose 95 mg/dL (70-100); HEMOLYSIS < 15 (0-50); Potassium 3.9 mmol/L (3.4-5.1); Sodium 138 mmol/L (137-145); Total Protein 7.4 g/dL (6.3-8.2)
== END ==
PROVIDERS: Family Provider Family Medicine; PCP Family Medicine; Referring Provider Family Medicine; Visit Provider Internal Medicine Rheumatology
DX: M06.09 Rheumatoid arthritis without rheumatoid factor, multiple sites (principal); Z79.899 Other long term (current) drug therapy
CPT/HCPCS: 36415; 80053; 85025; 85651; 86140

== ENCOUNTER → 2021-01-11 13:11 | Outpatient (CLI) | payer OTHER, SELFPAY ==
[2021-01-11 14:20] LABS: C-Reactive Protein Quant 2.2 mg/dL (<1.0)
== END ==
PROVIDERS: PCP Student in an Organized Health Care Education/Training Program; Referring Provider Internal Medicine Rheumatology; Visit Provider Internal Medicine Rheumatology
DX: M05.79 Rheumatoid arthritis with rheumatoid factor of multiple sites without organ or systems involvement (principal)
CPT/HCPCS: 36415; 86140

== ENCOUNTER → 2021-05-18 10:13 | Outpatient (CLI) | payer OTHER, SELFPAY ==
[2021-05-18 11:28] LABS: Add Manual Diff / Slide Review NO; Basophils Absolute Auto 0 /uL (0-100); Basophils Percent Auto 0.5 % (0-2); Eosinophils Absolute Auto 100 /uL (0-450); Eosinophils Percent Auto 1.4 % (2-4); Hematocrit 32.2 % (36-46); Hemoglobin 10.5 g/dL (12.0-16.0); Lymphocytes Absolute Auto 2400 /uL (1100-4500); Lymphocytes Percent Auto 27.1 % (25-40); Mean Corpuscular HGB Conc 32.7 % (30-36); Mean Corpuscular Hemoglobin 23.8 PG (26-34); Mean Corpuscular Volume 72.9 fL (80-100); Monocytes Absolute Auto 400 /uL (0-900); Monocytes Percent Auto 4.4 % (3-14); Neutrophils Absolute Auto 5900 /uL (1500-7000); Neutrophils Percent Auto 66.6 % (50-75); Platelet Count 351 X10^3/uL (150-400); Red Blood Cell Count 4.41 X10^6/uL (4.0-5.2); Red Cell Distribution Width 17.1 % (11.6-14.8); White Blood Cell Count 8.9 X10^3/uL (4.5-11.0)
[2021-05-18 11:46] LABS: Erythrocyte Sedimentation Rate 44 MM/HR (0-20)
[2021-05-18 11:49] LABS: Alanine Aminotransferase 26 IU/L (<35); Albumin 4.1 g/dL (3.5-5.0); Albumin Globulin Ratio 1.4 (1.0-2.8); Alkaline Phosphatase 66 U/L (38-126); Aspartate Aminotransferase 23 IU/L (14-36); BUN Creatinine Ratio 20.3 (6-22); Blood Urea Nitrogen 14 mg/dL (7-17); C-Reactive Protein Quant 2.3 mg/dL (<1.0); Calcium 9.2 mg/dL (8.4-10.2); Carbon Dioxide 29 mmol/L (22-32); Chloride 102 mmol/L (98-107); Estimated Glomerular Filt Rate > 60.0 mL/min (>60); Glucose 95 mg/dL (70-100); HEMOLYSIS < 15 (0-50); Potassium 4.4 mmol/L (3.4-5.1); Sodium 138 mmol/L (137-145); Total Protein 7.1 g/dL (6.3-8.2)
== END ==
PROVIDERS: PCP Student in an Organized Health Care Education/Training Program; Referring Provider Specialist/Technologist Athletic Trainer; Visit Provider Specialist/Technologist Athletic Trainer
DX: M06.09 Rheumatoid arthritis without rheumatoid factor, multiple sites (principal); Z51.81 Encounter for therapeutic drug level monitoring
CPT/HCPCS: 36415; 80053; 85025; 85651; 86140

== ENCOUNTER → 2021-08-17 15:25 | Outpatient (ROUT) | payer OTHER, SELFPAY ==
[2021-08-17 16:34] LABS: COVID-19 CEPHEID PCR (VTM/NP) Negative (Negative)
== END ==
PROVIDERS: PCP Student in an Organized Health Care Education/Training Program; Visit Provider Family Medicine
DX: Z20.822 Contact with and (suspected) exposure to COVID-19 (principal); Z79.899 Other long term (current) drug therapy; M06.09 Rheumatoid arthritis without rheumatoid factor, multiple sites
CPT/HCPCS: U0003; U0005

== ENCOUNTER → 2021-08-30 12:04 | Outpatient (CLI) | payer OTHER, SELFPAY ==
[2021-08-30 14:32] LABS: Add Manual Diff / Slide Review NO; Basophils Absolute Auto 0 /uL (0-100); Basophils Percent Auto 0.6 % (0-2); Eosinophils Absolute Auto 200 /uL (0-450); Eosinophils Percent Auto 1.9 % (2-4); Hematocrit 32.7 % (36-46); Hemoglobin 10.8 g/dL (12.0-16.0); Lymphocytes Absolute Auto 2700 /uL (1100-4500); Lymphocytes Percent Auto 32.1 % (25-40); Mean Corpuscular Hemoglobin 24.6 PG (26-34); Mean Corpuscular Volume 74.5 fL (80-100); Monocytes Absolute Auto 500 /uL (0-900); Neutrophils Absolute Auto 5000 /uL (1500-7000); Neutrophils Percent Auto 59.4 % (50-75); Platelet Count 293 X10^3/uL (150-400); Red Blood Cell Count 4.39 X10^6/uL (4.0-5.2); Red Cell Distribution Width 15.9 % (11.6-14.8); White Blood Cell Count 8.5 X10^3/uL (4.5-11.0)
[2021-08-30 15:11] LABS: Erythrocyte Sedimentation Rate 31 MM/HR (0-20)
[2021-08-30 15:19] LABS: Alanine Aminotransferase 15 IU/L (<35); Albumin Globulin Ratio 1.3 (1.0-2.8); Alkaline Phosphatase 60 U/L (38-126); Aspartate Aminotransferase 25 IU/L (14-36); BUN Creatinine Ratio 17.9 (6-22); Bilirubin Total 0.5 mg/dL (0.2-1.3); Blood Urea Nitrogen 14 mg/dL (7-17); C-Reactive Protein Quant 0.6 mg/dL (<1.0); Carbon Dioxide 30 mmol/L (22-32); Chloride 103 mmol/L (98-107); Estimated Glomerular Filt Rate > 60 mL/min (>60); Globulin 3.2 g/dL (1.7-4.1); Glucose 96 mg/dL (70-100); HEMOLYSIS < 15 (0-50); Potassium 3.8 mmol/L (3.4-5.1); Sodium 139 mmol/L (137-145); Total Protein 7.2 g/dL (6.3-8.2)
== END ==
PROVIDERS: PCP Student in an Organized Health Care Education/Training Program; Referring Provider Specialist/Technologist Athletic Trainer; Visit Provider Specialist/Technologist Athletic Trainer
DX: Z79.899 Other long term (current) drug therapy (principal); M06.09 Rheumatoid arthritis without rheumatoid factor, multiple sites; Z51.81 Encounter for therapeutic drug level monitoring
CPT/HCPCS: 36415; 80053; 85025; 85651; 86140

== ENCOUNTER 2021-09-25 07:04 | Emergency (ER) | payer OTHER, SELFPAY ==
[2021-09-25 07:28] VITALS: BP 209/105; PULSE 75; RESP 26; TEMP 36.6; O2SAT 99; BMI 28.1
--- NOTE | 2021-09-25 07:53 | ED.HA ---
HPI - Headache General Chief Complaint: Headache Stated Complaint: bad headache, lump on head Time Seen by Provider: 09/25/21 07:29 Source: patient Mode of arrival: Ambulatory Limitations: no limitations History of Present Illness HPI Narrative: This is a 41-year-old female with history of rheumatoid arthritis and hypertension on methotrexate and losartan. Patient has had a prior gastric sleep in the past 4 months. She comes to the emergency department with complaint of headache for the past 3 days that is been on the right side, quite severe and today she noticed a lump at the hairline Rosie bit of redness. Patient states that the lump is slightly tender. She has noticed which abuts cool compresses on her forehead and skin in that area and some burning sensation. She does not appreciate any pain in her eye at this point but does have pain wrapping towards the forehead. Patient has not had any fevers. No passing out. She has had nausea but no active vomiting. She denies chest pain or shortness of breath. She denies any GI or urinary symptoms. She has states she cannot take NSAIDs secondary to her gastric sleeve but believes as do I that she can have a dose IM. Patient did take her morning blood pressure medication after arrival. Related Data Home Medications Medication Instructions Recorded Confirmed losartan 50 mg tablet 50 mg PO BID ##0 08/27/16 04/14/19 methotrexate (PF) 20 mg/0.4 mL 20 mg SUBCUT QWEEK 03/11/18 04/14/19 subcutaneous auto-injector folic acid 1 mg tablet 1 mg PO DAILY 04/04/18 04/14/19 Previous Rx's Medication Instructions Recorded prednisone 20 mg tablet See Rx Instructions PO DAILY #15 07/17/18 tabs fluticasone propionate 50 1 spray intranasal BID #15.8 mL 04/14/19 mcg/actuation nasal spray,suspension (Flonase Allergy Relief) gabapentin 300 mg capsule 300 mg PO TID #30 caps 09/25/21 (Neurontin) oxycodone 5 mg tablet 5 mg PO QID PRN pain #20 tabs 09/25/21 valacyclovir 1 gram tablet 1,000 mg PO TID 7 days #21 tabs 09/25/21 (Valtrex) Allergies Allergy/AdvReac Type Severity Reaction Status Date / Time NSAIDS (Non-Steroidal AdvReac Verified 09/25/21 07:27 Anti-Inflamma Review of Systems Review of Systems ROS Unobtainable: All systems reviewed & are unremarkable except as noted in HPI and below Patient History Medical History (Updated 09/25/21 @ 08:42 by Glory Bedolla DO) Pelvic pain Social History Smoking Status: Former smoker Tobacco: How many years used: 3 second hand exposure: No alcohol intake: current (beer 3 times a year. Only on special occasions.) substance use type: does not use Smoking Status: Former smoker alcohol intake frequency: holidays/special occasions only Substance Use Type: marijuana Exam Narrative Exam Narrative: GEN: well nourished, well appearing female, alert and oriented x 3, patient appears to be in moderate distress. HEENT: Atraumatic, pupils are equal round reactive to light, extraocular movements are intact, nares are clear, TMs are clear with no fluid, there is no conjunctival pallor. Throat is clear without any exudates, erythema, tonsillar enlargement or uvular deviation, patient has a small area of swelling just at the hairline that is circular, nonfluctuant non indurated with several small erythematous lesions with developing vesicles tracking back into her hair along a dermatomal pattern on the right side. General: no globe trauma Eyelids: normal inspection Conjunctiva/Sclera: normal inspection Corneas: normal inspection, examined with fluroscein on right, patient does not have any uptake or dendritic lesions appreciated at this time. EOM: intact, no palsy/entrapment Pupils: PERRL, normal accomadation, pupil normal Anterior Chambers: normal inspection, no hypema HEART: Regular rate and rhythm without murmur, clicks, rubs. LUNGS:Lungs clear to auscultation, no wheezes, rales, crackles, chest moves symmetrically ABD:bowel sounds normal, soft, non-tender, no guarding, rebound, rigidity, no masses noted, no hepatosplenomegaly MSCL: Non-tender, no muscle atrophy, muscles strength 5/5 upper and lower extremities, full range of motion, normal gait NEURO:CN 2-12 intact, sensation normal Initial Vital Signs Initial Vital Signs: Vital Signs Temperature 97.8 F 09/25/21 07:28 Pulse Rate 75 09/25/21 07:28 Respiratory Rate 26 H 09/25/21 07:28 Blood Pressure 209/105 H 09/25/21 07:28 Pulse Oximetry 99 09/25/21 07:28 Oxygen Delivery Method 09/25/21 07:28 Course Orders Ordered: Discontinued Medications Fluorescein Sodium (Fluorescein 1 Mg Strip) 1 mg EYE-RIGHT NOW ONE Stop: 09/25/21 08:36 Last Admin: 09/25/21 08:56 Dose: 1 mg Documented By: HAL Ketorolac Tromethamine (Ketorolac 30 Mg/Ml Vial) 30 mg IM NOW ONE Stop: 09/25/21 08:36 Last Admin: 09/25/21 08:52 Dose: 30 mg Documented By: HAL Ondansetron HCl (Ondansetron 4 Mg Odt) 4 mg SL NOW ONE Stop: 09/25/21 08:36 Last Admin: 09/25/21 08:52 Dose: 4 mg Documented By: HAL Proparacaine HCl (Proparacaine 0.5% Ophth Nancy) 1 drops EYE-RIGHT NOW ONE Stop: 09/25/21 08:36 Last Admin: 09/25/21 08:55 Dose: 1 drop Documented By: HAL Vital Signs Vital signs: Vital Signs - 8 hr 09/25/21 07:28 09/25/21 08:28 Temperature 97.8 F Pulse Rate 75 61 Respiratory Rate 26 H 22 Blood Pressure 209/105 H 188/85 H Pulse Oximetry 99 98 Oxygen Delivery Method Room Air Room Air MDM - Headache MDM Narrative Medical decision making narrative: This is a 45-year-old female with several days of headache who is now developed a red spot on her forehead and on examination has exam consistent with shingles tracking in the area of her headache. She does not have any eye involvement at this time appreciated on cursory visual exam but patient was numbed with proparacaine and fluorescein for evaluation and it shows acute dendritic lesions or uptake at this time. Discussed with patient close follow-up and watching of her eye as the sensation is moving towards her eye and there is high potential to have involvement. We discussed the need to follow-up with ophthalmology or come to the emergency department if she develops any pain, sensation or irritation in the eye itself. The reasons behind this. Patient was given a dose of Toradol IM she is not actually allergic to NSAIDs she can not take them orally secondary to having a recent gastric sleeve surgery but discussed as in IM form this should be appropriate and not cause any issues. Patient started on antivirals, she cannot take oral NSAIDs secondary to recent gastric sleeve surgery so Tylenol, narcotic pain medication and offered Neurontin. Patient and I discussed return precautions in terms of eye involvement inside and symptoms to watch for all questions answered. Discharge Plan Departure Patient Disposition: Home Clinical Impression: Shingles Instructions: DI for Shingles Activity Restrictions/Additional Instructions: Follow-up with ophthalmology if there appears to be any involvement close to your eye. If during day time office hours you can follow up. There number is included below. Today on examination there are no lesions in your eye. Take antiviral until completely gone. You may take Tylenol up to a 1000 mg every 6 hours. You can take narcotic pain medication 1-2 tablets every 6 hours as needed for pain. This medication can make you sleepy do not drive, perform hazardous activities or make any major decisions while taking it. This medication will make you constipated please take a stool softener once to twice daily until stools are soft and regular. Also included is a medication that helps significantly with nerve pain all Neurontin you can take this 3 times daily and can be titrated upwards if needed. Prescription sent to [facility]. Return for rapidly worsening symptoms, passing out, involvement of her eye if the eye itself becomes painful, if you start to notice drainage or crusting of the eye, vision changes or other new or concerning symptoms. Prescriptions: New valacyclovir [Valtrex] 1 gram tablet 1,000 mg PO TID 7 Days Qty: 21 0RF gabapentin [Neurontin] 300 mg capsule 300 mg PO TID Qty: 30 0RF oxycodone 5 mg tablet 5 mg PO QID PRN (Reason: pain) Qty: 20 0RF No Action methotrexate (PF) 20 mg/0.4 mL auto-injector 20 mg SUBCUT QWEEK Label Comments: saturday prednisone 20 mg tablet See Rx Instructions PO DAILY Qty: 15 0RF Dose Instruction: 20-60mg PO DAILY; Rx Instructions: Take 3 tabs once for one day, then 2 tabs daily for 6 days fluticasone propionate [Flonase Allergy Relief] 50 mcg/actuation spray,suspension 1 spray NASAL BID Qty: 15.8 0RF Rx Instructions: administer 1 spray into each nostril morning and night losartan 50 MG tablet 50 mg PO BID Qty: 0 folic acid 1 mg Tablet 1 mg PO DAILY Referrals: Paramjit Moreno MD [Physician] - Lizzette Madrigal MD [Primary Care Provider] - Visit Report Forms: Patient Portal/API
[2021-09-25 08:28] VITALS: BP 188/85; PULSE 61; RESP 22; O2SAT 98
[2021-09-25 08:29] VITALS: PULSE 65; O2SAT 100
[2021-09-25 08:30] VITALS: PULSE 76; O2SAT 100
[2021-09-25] MEDS: ONDANSETRON 4 MG ODT SL (08:52)
[2021-09-25] MEDS: KETOROLAC 30 MG/ML VIAL IM (08:52)
[2021-09-25] MEDS: PROPARACAINE 0.5% OPHTH SOL 1 DROPS EYE-RIGHT (08:55)
[2021-09-25] MEDS: FLUORESCEIN 1 MG STRIP EYE-RIGHT (08:56)
[2021-09-25 09:00] VITALS: PULSE 72; O2SAT 99
== END 2021-09-25 09:20 | disposition home or self-care (01) ==
PROVIDERS: Emergency Provider Emergency Medicine; PCP Student in an Organized Health Care Education/Training Program
DX: B02.9 Zoster without complications (principal)
CPT/HCPCS: 96372; 99283; J1885

== ENCOUNTER 2021-10-08 07:21 | Emergency (ER) | payer OTHER, SELFPAY ==
[2021-10-08] VITALS (23 sets, daily range): BP systolic 152–201; BP diastolic 78–112; PULSE 59–91; RESP 12–18; TEMP 36.8; O2SAT 96–100; BMI 25.0
--- NOTE | 2021-10-08 08:02 | DI.US.S_ITS ---
PROCEDURE: US PELVIC LIMITED INDICATIONS: R/O torsion, R/O ov cyst, r/o L-side hydronephrosis TECHNIQUE: Real-time transabdominal scanning was performed of the pelvic organs, with image documentation. COMPARISON: [facility], US, US PELVIC COMPLETE, 11/20/2017, 16:30. [facility] [place] , CT, ABD/PELVIS W/CON (PNL), 02/15/2011, 14:30. [facility], US, US PELVIC COMPLETE, 04/21/2018, 9:10. FINDINGS: Uterus: Uterus is anteverted and normal in size at 10.2 x 6.8 x 6.1 cm. The myometrium is homogeneous. The endometrium measures 9 mm combined thickness. IUD is noted within the endometrium without evidence for in bed mid or displacement. Ovaries: The right ovary measures 2.9 x 2.5 x 4.1 cm. The left ovary measures 11.3 x 8.1 x 6.2 cm. Adjacent to the left adnexa extending into the mid abdomen is a large anechoic cystic lesion with posterior acoustic enhancement measuring 11.0 x 7.5 x 5.9 cm. This measured 9.0 x 6.0 x 6.9 cm on comparison ultrasound dated 04/21/2018. Arterial and venous waveforms are documented bilaterally. Other: Trace amount of free fluid within the pelvis, likely physiologic. Limited comparison of the left kidney demonstrates normal size and echogenicity without evidence of hydronephrosis. IMPRESSION: Large left ovarian cyst simple appearing cyst measuring 11.0 x 7.5 x 5.9 cm likely slightly enlarged from comparison dated 04/21/2018 where it measured 9.0 x 6.0 x 6.9 cm. No current sonographic evidence of torsion. IUD in appropriate position. We strive to produce accurate, complete, and clear reports of imaging services. To assist us in improving patient care, this report was composed using standard report templates and voice recognition software. Therefore, it may contain abnormal punctuation, insertions and/or omissions. Occasional wrong-word or sound-alike substitutions may occur. Though we review the report and make efforts to correct it, we do recommend that the report be read carefully in proper context to recognize any text inaccuracies. Dictated by: Brandon Harrison D.O. on 10/08/2021 at 8:16 Approved by: Brandon Harrison D.O. on 10/08/2021 at 8:26
[2021-10-08 08:09] LABS: Add Manual Diff / Slide Review NO; Basophils Absolute Auto 0 /uL (0-100); Basophils Percent Auto 0.6 % (0-2); Eosinophils Absolute Auto 100 /uL (0-450); Eosinophils Percent Auto 1.2 % (2-4); Hematocrit 32.4 % (36-46); Hemoglobin 10.4 g/dL (12.0-16.0); Lymphocytes Absolute Auto 2000 /uL (1100-4500); Lymphocytes Percent Auto 27.1 % (25-40); Mean Corpuscular HGB Conc 32.1 % (30-36); Mean Corpuscular Hemoglobin 24.1 PG (26-34); Mean Corpuscular Volume 75.2 fL (80-100); Monocytes Absolute Auto 400 /uL (0-900); Monocytes Percent Auto 5.2 % (3-14); Neutrophils Absolute Auto 4800 /uL (1500-7000); Neutrophils Percent Auto 65.9 % (50-75); Platelet Count 299 X10^3/uL (150-400); Red Blood Cell Count 4.31 X10^6/uL (4.0-5.2); Red Cell Distribution Width 15.9 % (11.6-14.8); White Blood Cell Count 7.2 X10^3/uL (4.5-11.0)
[2021-10-08] MEDS: HYDROMORPHONE 0.5 MG INJ IV ×2 (08:10→09:46)
[2021-10-08] MEDS: SODIUM CHLORIDE 0.9% 1,000 ML 100 ML IV (08:10)
[2021-10-08] MEDS: ACETAMINOPHEN 325 MG TABLET 975 MG PO (08:10)
[2021-10-08 08:26] LABS: Alanine Aminotransferase 13 IU/L (<35); Albumin 4.1 g/dL (3.5-5.0); Albumin Globulin Ratio 1.3 (1.0-2.8); Alkaline Phosphatase 59 U/L (38-126); Aspartate Aminotransferase 20 IU/L (14-36); BUN Creatinine Ratio 26.3 (6-22); Bilirubin Total 0.8 mg/dL (0.2-1.3); Blood Urea Nitrogen 15 mg/dL (7-17); Calcium 8.7 mg/dL (8.4-10.2); Carbon Dioxide 26 mmol/L (22-32); Chloride 103 mmol/L (98-107); Estimated Glomerular Filt Rate > 60 mL/min (>60); Globulin 3.2 g/dL (1.7-4.1); Glucose 97 mg/dL (70-100); HEMOLYSIS < 15 (0-50); Potassium 3.9 mmol/L (3.4-5.1); Sodium 138 mmol/L (137-145); Total Protein 7.3 g/dL (6.3-8.2)
[2021-10-08 08:32] LABS: RBC Urine 5-10/HPF (0-5/HPF); Squamous Epithelial Cell Urine 1-5 /HPF (0-5/HPF); WBC Urine 0-1/HPF (0-5/HPF)
[2021-10-08 08:33] LABS: Bacteria Urine Few (2-10); Culture Indicated Urine Cult Not Indicated; Mucus Urine 2+ (Negative)
[2021-10-08] MEDS: OXYCODONE IR 5 MG TABLET PO (11:16)
--- NOTE | 2021-10-08 19:02 | ED_ITS ---
HPI - Abdominal Pain General Chief Complaint: Abdominal Pain Stated Complaint: LOWER LT. ABD. PAIN Source: patient Mode of arrival: Ambulatory History of Present Illness HPI narrative: This patient comes to the emergency department with left lower quadrant abdominal pain which started yesterday. She says it is very similar to the previous ovarian cyst pain she had some time ago. She has had nausea but no vomiting, no fever. She does not believe she is because she has a copper IUD. She had gastric sleeve procedure in May of this year. Related Data Home Medications Medication Instructions Recorded Confirmed losartan 50 mg tablet 50 mg PO BID ##0 08/27/16 04/14/19 methotrexate (PF) 20 mg/0.4 mL 20 mg SUBCUT QWEEK 03/11/18 04/14/19 subcutaneous auto-injector folic acid 1 mg tablet 1 mg PO DAILY 04/04/18 04/14/19 Previous Rx's Medication Instructions Recorded prednisone 20 mg tablet See Rx Instructions PO DAILY #15 07/17/18 tabs fluticasone propionate 50 1 spray intranasal BID #15.8 mL 04/14/19 mcg/actuation nasal spray,suspension (Flonase Allergy Relief) gabapentin 300 mg capsule 300 mg PO TID #30 caps 09/25/21 (Neurontin) oxycodone 5 mg tablet 5 mg PO QID PRN pain #20 tabs 09/25/21 Allergies Allergy/AdvReac Type Severity Reaction Status Date / Time NSAIDS (Non-Steroidal AdvReac Verified 09/25/21 07:27 Anti-Inflamma Review of Systems Review of Systems Narrative: Full system review reveals no significant abnormalities other than as noted above. Patient History Medical History Pelvic pain Social History Smoking Status: Former smoker Tobacco: How many years used: 3 second hand exposure: No alcohol intake: current (beer 3 times a year. Only on special occasions.) substance use type: does not use Smoking Status: Former smoker alcohol intake frequency: holidays/special occasions only Substance Use Type: marijuana Exam Narrative Exam Narrative: GENERAL: Alert, cooperative and in no distress. HEAD: Atraumatic. Normocephalic. EYES: Sclera are clear without icterus. Extraocular movements are full. ENT: No rhinorrhea. Oropharynx is moist. Mouth exam is benign. NECK: Supple. Full range of motion. CARDIOVASCULAR: Normal rate and rhythm without murmur gallop or rub. RESPIRATORY: Clear to auscultation. Breath sounds equal bilaterally. No wheezes, rales, or rhonchi. GASTROINTESTINAL: Mild diffuse abdominal tenderness especially in the left lower quadrant. No guarding or mass. Decreased bowel sounds. EXTREMITIES: No edema, full range of motion. No obvious trauma. BACK: Normal inspection, no CVA tenderness. NEURO: Nonfocal examination, normal speech, normal gait. SKIN: No rash or erythema of visible areas PSYCH: Normally oriented. Normal range of affect. Appropriate behavior Initial Vital Signs Initial Vital Signs: Vital Signs Temperature 98.3 F 10/08/21 07:33 Pulse Rate 83 10/08/21 07:33 Respiratory Rate 18 10/08/21 07:33 Blood Pressure 193/112 H 10/08/21 07:33 Pulse Oximetry 100 10/08/21 07:33 Oxygen Delivery Method 10/08/21 07:33 Course Orders Ordered: Discontinued Medications Acetaminophen (Acetaminophen 325 Mg Tablet) 975 mg PO NOW ONE Stop: 10/08/21 08:04 Last Admin: 10/08/21 08:10 Dose: 975 mg Documented By: KING Hydromorphone HCl (Hydromorphone 0.5 Mg Inj) 0.5 mg IV NOW ONE Stop: 10/08/21 08:04 Last Admin: 10/08/21 08:10 Dose: 0.5 mg Documented By: KING Hydromorphone HCl (Hydromorphone 0.5 Mg Inj) 0.5 mg IV NOW ONE Stop: 10/08/21 09:44 Last Admin: 10/08/21 09:46 Dose: 0.5 mg Documented By: KING Sodium Chloride (Normal Saline 0.9%) 1,000 mls @ 100 mls/hr IV CONT EBONIE Last Admin: 10/08/21 08:10 Dose: 100 mls/hr Documented By: KING Oxycodone HCl (Oxycodone Ir 5 Mg Tablet) 5 mg PO NOW ONE Stop: 10/08/21 11:13 Last Admin: 10/08/21 11:16 Dose: 5 mg Documented By: KING Vital Signs Vital signs: Vital Signs - 8 hr 10/08/21 11:15 10/08/21 11:15 10/08/21 11:30 Pulse Rate 67 Respiratory Rate Blood Pressure 158/78 H 162/88 H Pulse Oximetry 97 Oxygen Delivery Method 10/08/21 11:30 10/08/21 11:45 10/08/21 11:45 Pulse Rate 64 80 Respiratory Rate Blood Pressure 162/91 H Pulse Oximetry 98 98 Oxygen Delivery Method 10/08/21 12:00 10/08/21 12:00 10/08/21 12:15 Pulse Rate 70 Respiratory Rate Blood Pressure 162/95 H 166/92 H Pulse Oximetry 97 Oxygen Delivery Method 10/08/21 12:15 10/08/21 12:30 10/08/21 12:30 Pulse Rate 76 67 Respiratory Rate Blood Pressure 154/90 H Pulse Oximetry 100 96 Oxygen Delivery Method 10/08/21 13:12 Pulse Rate 65 Respiratory Rate 12 Blood Pressure 176/99 H Pulse Oximetry 100 Oxygen Delivery Method Room Air MDM - Abdominal Pain Lab Data Result diagrams: 10/08/21 07:49 10/08/21 07:49 Labs: Lab Results 10/08/21 10/08/21 10/08/21 Range/Units 07:49 07:49 08:00 WBC 7.2 (4.5-11.0) X10^3/uL RBC 4.31 (4.0-5.2) X10^6/uL Hgb 10.4 L (12.0-16.0) g/dL Hct 32.4 L (36-46) % MCV 75.2 L (80-100) fL MCH 24.1 L (26-34) PG MCHC 32.1 (30-36) % RDW 15.9 H (11.6-14.8) % Plt Count 299 (150-400) X10^3/uL Neut % (Auto) 65.9 (50-75) % Lymph % (Auto) 27.1 (25-40) % [place] % (Auto) 5.2 (3-14) % Eos % (Auto) 1.2 L (2-4) % Baso % (Auto) 0.6 (0-2) % Neut # (Auto) 4800 (2670-4666) /uL Lymph # (Auto) 2000 (7844-5921) /uL [place] # (Auto) 400 (0-900) /uL Eos # (Auto) 100 (0-450) /uL Baso # (Auto) 0 (0-100) /uL Sodium 138 (137-145) mmol/L Potassium 3.9 (3.4-5.1) mmol/L Chloride 103 (98-107) mmol/L Carbon Dioxide 26 (22-32) mmol/L BUN 15 (7-17) mg/dL Creatinine 0.57 (0.52-1.04) mg/dL Estimated GFR > 60 (>60) mL/min BUN/Creatinine Ratio 26.3 H (6-22) Glucose 97 (70-100) mg/dL Calcium 8.7 (8.4-10.2) mg/dL Total Bilirubin 0.8 (0.2-1.3) mg/dL AST 20 (14-36) IU/L ALT 13 (<35) IU/L Alkaline Phosphatase 59 (38-126) U/L Total Protein 7.3 (6.3-8.2) g/dL Albumin 4.1 (3.5-5.0) g/dL Globulin 3.2 (1.7-4.1) g/dL Albumin/Globulin Ratio 1.3 (1.0-2.8) Urine RBC 5-10/hpf H (0-5/HPF) Urine WBC 0-1/hpf (0-5/HPF) Ur Squamous Epith Cells 1-5 /hpf (0-5/HPF) Urine Bacteria Few (2-10) H (None) Urine Mucus 2+ H (Negative) Ur Culture Indicated? Cult not indicated Point of care testing: Point of Care Testing Test Results Negative Urine Dip Bedside Urine Glucose Negative Bedside Urine Bilirubin - Negative Bedside Urine Ketone +++ 80 Urine Specific [place] 1.025 Bedside Urine Occult Blood +++ Bedside Urine pH 6 Bedside Urine Protein +/- 15 Bedside Urine Urobilinogen - Negative Bedside Urine Nitrite - Negative Bedside Urine Leukocytes - Negative Esterase Imaging Data US - abdomen: Radiologist's Impression: [address] [address] Ultrasound Report Signed Patient: Emmett Pan MR#: [id number] : 1980 Acct:[id number] Age/Sex: 37 / F Date of Service: 11/20/17 Loc: ED Accession Number: [id number] ?? Procedure: US pelvic complete Ordering Provider: Miguel Mendes PROCEDURE:? US PELVIC COMPLETE ? INDICATIONS:? Suprapubic and left pelvic pain ? TECHNIQUE:? Real-time scanning was performed of the pelvic organs, with image documentation.? Additional endovaginal scanning was necessary due to incomplete visualization of the adnexal and endometrial structures by transabdominal scanning.? ? COMPARISON:? [facility], CT, KIDNEY/ URETER/BLADDER, 05/15/2017, 15:23.? [facility], , PELVIC COMPLETE, 07/25/2012, 11:13.? [facility], MR, PELVIS WITHOUT CONTRAST, 10/27/2012, 18:25.? [facility], PELVIC COMPLETE, 12/17/2014, 14:07.? [facility], PELVIC COMPLETE, 08/27/2016, 22:05.? [facility], , PELVIC COMPLETE, 11/26/2016, 16:54. ? FINDINGS:? Transabdominal scanning:? Limited scanning through the kidneys shows no hydr onephrosis.? No pathologic free abdominal or pelvic fluid.? ? Endovaginal scanning:? Uterus:? Uterus is normal in size at 11.3 x 5.1 x 6.3 cm.? IUD appears appropriately positioned. The endometrium is not well seen secondary to presence of intrauterine device, however no gross sonographic abnormalities identified. Incidental note made of small nabothian cysts. ? Ovaries: Right adnexa measures 2.8 x 2.5 x 2.4 cm. Left adnexa measures 3.8 x 2.2 x 4.7 cm. There is a 7.8 x 6.2 x 6.7 cm left adnexal cyst which is increased in size compared to prior examinations. Doppler evaluation demonstrates flow to the adnexa bilaterally. ? ? IMPRESSION: ? 1. IUD demonstrated centrally in the endometrium. ? 2. Persistent left ovarian cyst which is increased in size compared to prior examinations. Recommend gynecology consultation and MRI of the pelvis (gynecologic protocol) to exclude cystic neoplasm. ? 3. No evidence of adnexal torsion identified in the current study. Please note ultrasound cannot exclude intermittent or partial torsion. ? ? ? Dictated by: Indira Heredia MD, PhD on 11/20/2017 at 16:01 ? ? Approved by: Indira Heredia MD, PhD on 11/20/2017 at 16:10 ? MDM Narrative Medical decision making narrative: Detailed evaluation reveals a large left ovarian cyst without evidence of hydronephrosis or ovarian torsion. test is negative. Symptomatic therapy is recommended. There is no evidence of a ruptured ovarian cyst or hemodynamic instability to suggest intra-abdominal hemorrhage. I think ou tpatient follow-up is appropriate with analgesia is provided. Discharge Plan Departure Patient Disposition: Home Clinical Impression: Ovarian cyst Instructions: Ovarian Cyst Activity Restrictions/Additional Instructions: You have an ovarian cyst. These usually resolve on their own. Once in a while these rupture and cause severe internal bleeding which could be dangerous. This is very rare. If you feel very lightheaded with worsening abdominal pain especially with distension or swelling of the abdomen, you should return to the emergency department right away. Otherwise, this is treated with time and symptomatic management. Take Tylenol 1000 mg every 6 hours and oxycodone 5 mg every 6 hours as needed for more severe pain. Follow-up with your doctor in the next few days for re-evaluation. Prescriptions: No Action methotrexate (PF) 20 mg/0.4 mL auto-injector 20 mg SUBCUT QWEEK Label Comments: saturday prednisone 20 mg tablet See Rx Instructions PO DAILY Qty: 15 0RF Dose Instruction: 20-60mg PO DAILY; Rx Instructions: Take 3 tabs once for one day, then 2 tabs daily for 6 days fluticasone propionate [Flonase Allergy Relief] 50 mcg/actuation spray,suspension 1 spray NASAL BID Qty: 15.8 0RF Rx Instructions: administer 1 spray into each nostril morning and night losartan 50 MG tablet 50 mg PO BID Qty: 0 folic acid 1 mg Tablet 1 mg PO DAILY gabapentin [Neurontin] 300 mg capsule 300 mg PO TID Qty: 30 0RF oxycodone 5 mg tablet 5 mg PO QID PRN (Reason: pain) Qty: 20 0RF Referrals: Reanna Nguyễn MD [Primary Care Provider] - Visit Report Forms: Patient Portal/API
== END 2021-10-08 13:15 | disposition home or self-care (01) ==
PROVIDERS: Emergency Provider Family Medicine Addiction Medicine; PCP Family Medicine
DX: N83.202 Unspecified ovarian cyst, left side (principal); Z97.5 Presence of (intrauterine) contraceptive device; Z98.84 Bariatric surgery status
CPT/HCPCS: 36415; 76830; 76857; 80053; 81003; 81015; 81025; 85025; 96374; 96376; 99284; J1170

== ENCOUNTER 2021-10-10 19:53 | Observation (INO) | payer OTHER, SELFPAY ==
[2021-10-10] VITALS (9 sets, daily range): BP systolic 129–159; BP diastolic 73–90; PULSE 100–120; RESP 18; TEMP 37.2–37.6; O2SAT 97–98
--- NOTE | 2021-10-10 20:22 | ED.ABDPAIN ---
HPI - Abdominal Pain General Chief Complaint: Abdominal Pain Stated Complaint: severe abdominal pain Time Seen by Provider: 10/10/21 20:10 Source: patient Mode of arrival: Ambulatory History of Present Illness HPI narrative: 41-year-old former smoker with history of a known large left-sided ovarian cyst and relatively recent gastric sleeve surgery presents with significant other and a chief complaint of worsening left lower quadrant and lower abdominal pain. She was seen and evaluated here few days ago and had thorough evaluation including an ultrasound which noted her known cyst to have grown to 11 x 7 x 6 cm. Her pain was well controlled and she was discharged home and actually has follow-up tomorrow with her primary care provider to make plans moving forward. She has significant pain, worse with any motion and improves with rest but episodes that it seems to significantly worsen without obvious provocation. She is nauseated and has a poor appetite but denies any vomiting. She has a low-grade fever and denies any dysuria, frequency or urgency. She last had something to drink just prior to arrival but last food, which did not call that well was at about noon. Related Data Home Medications Medication Instructions Recorded Confirmed losartan 50 mg tablet 50 mg PO DAILY ##0 08/27/16 10/11/21 methotrexate (PF) 20 mg/0.4 mL 20 mg SUBCUT QWEEK 03/11/18 10/11/21 subcutaneous auto-injector folic acid 1 mg tablet 1 mg PO DAILY 04/04/18 10/11/21 Previous Rx's Medication Instructions Recorded norethindrone (contraceptive) 0.35 0.35 mg PO DAILY #84 tabs 10/13/21 mg tablet ([facility]) oxycodone-acetaminophen 5 mg-325 1 tab PO Q4H PRN pain #20 tabs 10/13/21 mg tablet (Percocet) Allergies Allergy/AdvReac Type Severity Reaction Status Date / Time NSAIDS (Non-Steroidal AdvReac Verified 09/25/21 07:27 Anti-Inflamma Review of Systems Review of Systems Narrative: GENERAL: See HPI HEENT: Denies sinus pain, ear pain, sore throat, difficulty swallowing, dizziness. RESPIRATORY: Denies dyspnea, cough, wheezing, hemoptysis, sputum. CARDIOVASCULAR: Denies chest pain, palpitations, orthopnea, edema, GASTROINTESTINAL: See HPI : Denies dysuria, frequency, incontinence, hematuria, urinary retention. MUSCULOSKELETAL: denies weakness, joint pain, or bony pain SKIN: Denies rash, skin lesions, or other NEUROLOGIC: Denies weakness, headache, numbness, change in speech, confusion, seizures, incoordination. PSYCHIATRIC: No concerning psychosocial issues. 12 point review of systems is negative except for those stated above Patient History Medical History (Updated 10/11/21 @ 17:58 by Arlene Fields MD) Pelvic pain Rheumatoid arthritis Surgical History (Updated 10/13/21 @ 12:32 by Arlene Fields MD) H/O gastric sleeve Hx of unilateral salpingectomy Social History household members: significant other and children Smoking Status: Former smoker Tobacco: How many years used: 3 second hand exposure: No alcohol intake: current substance use type: does not use Smoking Status: Former smoker alcohol intake frequency: holidays/special occasions only Substance Use Type: marijuana Exam Narrative Exam Narrative: GENERAL: [41] year old patient appears stated age. Well-developed patient, obviously uncomfortable, in pain, rubbing her lower abdomen, tearful and holding an emesis bag HEAD: Atraumatic. Normocephalic. EYES: Pupils equal round and reactive. Extraocular motions intact. No scleral icterus. No injection or drainage. ENT: Nose without bleeding, purulent drainage. Throat without erythema, tonsillar hypertrophy or exudate. Airway patent. NECK: Trachea midline. Non tender CARDIOVASCULAR: Regular rate and rhythm without murmurs, gallops, or rubs. RESPIRATORY: Clear to auscultation. Breath sounds equal bilaterally. No wheezes, rales, or rhonchi. GASTROINTESTINAL: Abdomen soft, distended, significant tenderness in the mid lower abdomen and left lower quadrant, bowel sounds present but decreased EXTREMITIES: No edema or joint tenderness. BACK: Nontender without deformity or crepitance. No flank tenderness. NEURO: AOx3. SKIN: No rash or erythema of visible areas Initial Vital Signs Initial Vital Signs: Vital Signs Temperature 99 F 10/10/21 20:02 Pulse Rate 114 H 10/10/21 20:02 Respiratory Rate 18 10/10/21 20:02 Blood Pressure 159/86 H 10/10/21 20:02 Pulse Oximetry 97 10/10/21 20:02 Oxygen Delivery Method 10/10/21 20:02 Course Orders Ordered: Discontinued Medications Calcium Carbonate (Calcium Carbonate 500 Mg Tab) 1,000 mg PO Q4HR PRN PRN Reason: Dyspepsia Last Admin: 10/12/21 09:21 Dose: 1,000 mg Documented By: JENNA Cefazolin Sodium/Dextrose (Cefazolin 2 Gm/20 Ml Syringe) 2 gm IV NOW ONE Stop: 10/11/21 18:26 Last Admin: 10/11/21 21:55 Dose: 2 gm Documented By: Admin: 10/11/21 19:52 Dose: 2 gm Documented By: SINA Bupivacaine HCl 30 ml/ (Epinephrine HCl 0.15 mg) 0 ml INJ NOW ONE Stop: 10/11/21 23:07 Last Admin: 10/11/21 21:30 Dose: 15 ml Documented By: TEGAN Famotidine (Famotidine 20 Mg/2 Ml Vial) 20 mg IV NOW EBONIE Last Admin: 10/12/21 10:49 Dose: 20 mg Documented By: JENNA Famotidine (Famotidine 20 Mg Tablet) 20 mg PO BID PRN PRN Reason: Reflux, heartburn Fentanyl (Fentanyl 100 Mcg/2 Ml Inj) 0 mcg IV Q5M PRN PRN Reason: Pain, Moderate (4-6) Last Admin: 10/11/21 23:25 Dose: 50 mcg Documented By: Admin: 10/11/21 23:07 Dose: 50 mcg Documented By: GUSTAVO Hydromorphone HCl (Hydromorphone 0.5 Mg Inj) 0.5 mg IV Q1HR PRN PRN Reason: Pain, Severe (7-10) Last Admin: 10/11/21 19:52 Dose: 0.5 mg Documented By: Admin: 10/11/21 18:07 Dose: 0.5 mg Documented By: Admin: 10/11/21 15:23 Dose: 0.5 mg Documented By: Admin: 10/11/21 13:51 Dose: 0.5 mg Documented By: Admin: 10/11/21 12:44 Dose: 0.5 mg Documented By: Admin: 10/11/21 09:25 Dose: 0.5 mg Documented By: CARMELA(2) Admin: 10/11/21 06:20 Dose: 0.5 mg Documented By: Admin: 10/11/21 03:46 Dose: 0.5 mg Documented By: Admin: 10/11/21 00:21 Dose: 0.5 mg Documented By: Admin: 10/10/21 20:54 Dose: 0.5 mg Documented By: MARCELINA Hydromorphone HCl (Hydromorphone 0.5 Mg Inj) 0.5 mg IV NOW ONE Stop: 10/10/21 22:30 Last Admin: 10/10/21 22:35 Dose: 0.5 mg Documented By: GERMAN Hydromorphone HCl (Hydromorphone 2 Mg Inj) 0 mg IV Q5M PRN PRN Reason: Pain, Moderate (4-6) Last Admin: 10/11/21 23:26 Dose: 0.5 mg Documented By: Admin: 10/11/21 23:08 Dose: 0.5 mg Documented By: GUSTAVO Hydromorphone HCl (Hydromorphone 0.5 Mg Inj) 0.5 mg IV Q2H PRN PRN Reason: Pain, Moderate (4-6) Last Admin: 10/12/21 11:51 Dose: 0.5 mg Documented By: Admin: 10/12/21 07:56 Dose: 0.5 mg Documented By: Admin: 10/12/21 04:52 Dose: 0.5 mg Documented By: Admin: 10/12/21 00:42 Dose: 0.5 mg Documented By: SINA Sodium Chloride (Normal Saline 0.9%) 1,000 mls @ 1,000 mls/hr IV BOLUS ONE Stop: 10/10/21 21:33 Last Admin: 10/10/21 20:55 Dose: Not Given Documented By: MARCELINA Lactated Ringer's (Lactated Ringers) 1,000 mls @ 1,000 mls/hr IV BOLUS ONE Stop: 10/10/21 21:38 Last Infusion: 10/10/21 22:30 Dose: 0 mls/hr Documented By: Admin: 10/10/21 20:54 Dose: 1,000 mls/hr Documented By: MARCELINA Lactated Ringer's (Lactated Ringers) 1,000 mls @ 125 mls/hr IV CONT EBONIE Last Infusion: 10/11/21 07:39 Dose: 0 mls/hr Documented By: CARMELA(3) Admin: 10/11/21 00:20 Dose: 125 mls/hr Documented By: JYOTI Sodium Chloride (Normal Saline 0.9%) 1,000 mls @ 125 mls/hr IV CONT EBONIE Lactated Ringer's (Lactated Ringers) 1,000 mls @ 100 mls/hr IV CONT EBONIE Last Admin: 10/12/21 04:53 Dose: 100 mls/hr Documented By: Infusion: 10/12/21 04:53 Dose: 100 mls/hr Documented By: Admin: 10/11/21 22:42 Dose: 100 mls/hr Documented By: Infusion: 10/11/21 22:42 Dose: 100 mls/hr Documented By: Admin: 10/11/21 13:49 Dose: 100 mls/hr Documented By: JYOTI Lactated Ringer's (Lactated Ringers) 1,000 mls @ 42 mls/hr IV CONT EBONIE Last Admin: 10/12/21 00:31 Dose: Not Given Documented By: SINA Lorazepam (Lorazepam 2 Mg/Ml Inj) 0.25 mg IV NOW PRN PRN Reason: Anxiety Last Admin: 10/11/21 23:07 Dose: 0.25 mg Documented By: GUSTAVO Losartan Potassium (Losartan 50 Mg Tablet) 50 mg PO DAILY [facility] Last Admin: 10/13/21 09:14 Dose: 50 mg Documented By: Admin: 10/12/21 08:11 Dose: 50 mg Documented By: JENNA Meperidine HCl (Meperidine 50 Mg/Ml Inj) 12.5 mg IV PACUNOW PRN PRN Reason: Mild pain or shivering Metoclopramide HCl (Metoclopramide 10 Mg/2 Ml Inj) 10 mg IV NOW PRN PRN Reason: Nausea And Vomiting Ondansetron HCl (Ondansetron 4 Mg/2 Ml Inj) 4 mg IV NOW ONE Stop: 10/10/21 20:40 Last Admin: 10/10/21 20:54 Dose: 4 mg Documented By: MARCELINA Ondansetron HCl (Ondansetron 4 Mg/2 Ml Inj) 4 mg IV NOW PRN PRN Reason: Nausea And Vomiting Last Admin: 10/11/21 23:07 Dose: 4 mg Documented By: GUSTAVO Ondansetron HCl (Ondansetron 4 Mg/2 Ml Inj) 4 mg IV Q6HR PRN PRN Reason: Nausea And Vomiting Oxycodone/Acetaminophen (Oxycodone/Acetaminophen 5/325 Tablet) 1 tab PO PACUNOW PRN PRN Reason: Mild or Moderate Pain Oxycodone/Acetaminophen (Oxycodone/Acetaminophen 5/325 Tablet) 1 tab PO Q4HR PRN PRN Reason: Pain, Moderate (4-6) Last Admin: 10/13/21 13:18 Dose: 1 tab Documented By: Admin: 10/13/21 09:13 Dose: 1 tab Documented By: Admin: 10/13/21 05:18 Dose: 1 tab Documented By: Admin: 10/12/21 21:02 Dose: 1 tab Documented By: Admin: 10/12/21 17:19 Dose: 1 tab Documented By: Admin: 10/12/21 13:41 Dose: 1 tab Documented By: Admin: 10/12/21 08:56 Dose: 1 tab Documented By: JENNA Simethicone (Simethicone 80 Mg Tablet) 80 mg PO QID PRN PRN Reason: Flatulence Last Admin: 10/13/21 09:23 Dose: 80 mg Documented By: JENNA Sodium Chloride (Sodium Chloride 0.9% Flush) 10 ml IV PRN PRN PRN Reason: Flush Sodium Chloride (Sodium Chloride 0.9% Flush) 10 ml IV BID EBONIE Last Admin: 10/13/21 09:14 Dose: 10 ml Documented By: Admin: 10/12/21 21:02 Dose: 10 ml Documented By: KENYATTA Vital Signs Vital signs: Vital Signs - 8 hr 10/10/21 20:02 10/10/21 20:20 10/10/21 21:10 Temperature 99 F 99.7 F H Pulse Rate 114 H 109 H Respiratory Rate 18 18 Blood Pressure 159/86 H 135/90 135/79 Pulse Oximetry 97 98 Oxygen Delivery Method Room Air Room Air 10/10/21 21:19 10/10/21 21:30 10/10/21 21:30 Temperature Pulse Rate 107 H 100 H Respiratory Rate Blood Pressure 129/73 Pulse Oximetry 98 98 Oxygen Delivery Method MDM - Abdominal Pain Lab Data Result diagrams: 10/11/21 11:03 10/10/21 20:20 Labs: Lab Results 10/10/21 10/10/21 10/10/21 Range/Units 20:20 20:20 20:20 WBC 11.0 (4.5-11.0) X10^3/uL RBC 4.44 (4.0-5.2) X10^6/uL Hgb 10.9 L (12.0-16.0) g/dL Hct 33.6 L (36-46) % MCV 75.6 L (80-100) fL MCH 24.6 L (26-34) PG MCHC 32.5 (30-36) % RDW 16.1 H (11.6-14.8) % Plt Count 334 (150-400) X10^3/uL Neut % (Auto) 73.1 (50-75) % Lymph % (Auto) 18.6 L (25-40) % [place] % (Auto) 7.1 (3-14) % Eos % (Auto) 0.7 L (2-4) % Baso % (Auto) 0.5 (0-2) % Neut # (Auto) 8000 H (8063-7217) /uL Lymph # (Auto) 2000 (0711-2195) /uL [place] # (Auto) 800 (0-900) /uL Eos # (Auto) 100 (0-450) /uL Baso # (Auto) 100 (0-100) /uL Sodium Cancelled 138 Potassium Cancelled 3.6 Chloride Cancelled 101 Carbon Dioxide Cancelled 22 BUN Cancelled 12 Creatinine Cancelled 0.61 Estimated GFR Cancelled > 60 BUN/Creatinine Ratio Cancelled 19.7 Glucose Cancelled 100 Lactate (0.7-2.1) mmol/L Calcium Cancelled 9.0 Total Bilirubin Cancelled 1.0 AST Cancelled 16 ALT Cancelled 10 Alkaline Phosphatase Cancelled 61 Total Protein Cancelled 7.6 Albumin Cancelled 4.3 Globulin Cancelled 3.3 Albumin/Globulin Ratio Cancelled 1.3 Lipase 86 (23-300) U/L CA 125 Antigen (0-35) U/mL SARS-CoV-2 (PCR) (Negative) Blood Type Antibody Screen 10/10/21 10/10/21 10/11/21 Range/Units 20:20 21:00 00:31 WBC (4.5-11.0) X10^3/uL RBC (4.0-5.2) X10^6/uL Hgb (12.0-16.0) g/dL Hct (36-46) % MCV (80-100) fL MCH (26-34) PG MCHC (30-36) % RDW (11.6-14.8) % Plt Count (150-400) X10^3/uL Neut % (Auto) (50-75) % Lymph % (Auto) (25-40) % [place] % (Auto) (3-14) % Eos % (Auto) (2-4) % Baso % (Auto) (0-2) % Neut # (Auto) (6366-4419) /uL Lymph # (Auto) (7090-9484) /uL [place] # (Auto) (0-900) /uL Eos # (Auto) (0-450) /uL Baso # (Auto) (0-100) /uL Sodium Potassium Chloride Carbon Dioxide BUN Creatinine Estimated GFR BUN/Creatinine Ratio Glucose Lactate 0.9 (0.7-2.1) mmol/L Calcium Total Bilirubin AST ALT Alkaline Phosphatase Total Protein Albumin Globulin Albumin/Globulin Ratio Lipase (23-300) U/L CA 125 Antigen (0-35) U/mL SARS-CoV-2 (PCR) Negative (Negative) Blood Type A Positive Antibody Screen Negative 10/11/21 10/11/21 Range/Units 11:03 11:13 WBC 8.0 (4.5-11.0) X10^3/uL RBC 3.74 L (4.0-5.2) X10^6/uL Hgb 9.2 L (12.0-16.0) g/dL Hct 28.3 L (36-46) % MCV 75.7 L (80-100) fL MCH 24.5 L (26-34) PG MCHC 32.4 (30-36) % RDW 15.6 H (11.6-14.8) % Plt Count 265 (150-400) X10^3/uL Neut % (Auto) 66.2 (50-75) % Lymph % (Auto) 23.8 L (25-40) % [place] % (Auto) 8.5 (3-14) % Eos % (Auto) 1.0 L (2-4) % Baso % (Auto) 0.5 (0-2) % Neut # (Auto) 5300 (1797-7305) /uL Lymph # (Auto) 1900 (8868-5388) /uL [place] # (Auto) 700 (0-900) /uL Eos # (Auto) 100 (0-450) /uL Baso # (Auto) 0 (0-100) /uL Sodium Potassium Chloride Carbon Dioxide BUN Creatinine Estimated GFR BUN/Creatinine Ratio Glucose Lactate (0.7-2.1) mmol/L Calcium Total Bilirubin AST ALT Alkaline Phosphatase Total Protein Albumin Globulin Albumin/Globulin Ratio Lipase (23-300) U/L CA 125 Antigen 34.4 (0-35) U/mL SARS-CoV-2 (PCR) (Negative) Blood Type Antibody Screen Discharge Plan Departure Patient Disposition: Admitted to Surgery Clinical Impression: Cyst of ovary Admit Date/Time: 10/11/21 14:14 Admit Provider: Arlene Fields
--- NOTE | 2021-10-10 20:39 | DI.CT.S_ITS ---
PROCEDURE: CT ABDOMEN PELVIS W CON INDICATIONS: severe abdominal pain, gastric sleeve, ovarian cyst TECHNIQUE: After the administration of IV contrast, axial sections were acquired from the lung bases to the pubic symphysis. Coronal and sagittal reformats were performed. For radiation dose reduction, the following was used: automated exposure control, adjustment of mA and/or kV according to patient size. COMPARISON: [facility], US, US PELVIC LIMITED, 10/08/2021, 9:27. [facility], CT, CT HIGH RESOLUTION CHEST, 03/02/2021, 11:00. [facility] , CT, ABD/PELVIS W/CON (PNL), 02/15/2011, 14:30. FINDINGS: Image quality: Diagnostic. Lung bases: Unremarkable. Heart: Heart is normal in size. There is a partially visualized small cystic collection demonstrated adjacent to the right cardiac contours which appears similar to the prior chest CT where visualized and likely represents pericardial recess fluid. ABDOMEN: Liver: No mass lesion. Gallbladder: Within normal limits without calcified gallstones. Biliary ducts: No biliary ductal dilatation. Pancreas: Unremarkable. Spleen: Normal in size. Adrenal Glands: There is a small fat-containing left adrenal nodule measuring up to 0.9 cm. 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 Kidneys and Ureters: No hydronephrosis. There is a small right renal cyst redemonstrated. Stomach and Bowel: Postsurgical changes are demonstrated along the stomach consistent with prior gastric sleeve procedure. Stomach, small bowel loops, and colon are normal in caliber and wall thickness. No evidence of appendicitis. Peritoneum: No abnormal intraperitoneal fluid. No free air. Ventral Wall: No hernia. Abdominal Nodes: No retroperitoneal or mesenteric adenopathy by size criteria. Vessels: Aorta and inferior vena cava are normal in size. PELVIS: Pelvic Organs: There is a large cystic lesion demonstrated anteriorly within the lower abdomen and pelvis, measuring approximately 11.3 x 8.1 cm in transverse dimension with eccentric wall thickening along the left and posterior aspects. There is adjacent free fluid and fat stranding. Right ovary appears within normal size limits. IUD appears in appropriate position within the uterus. Pelvic Nodes: No enlarged lymph nodes. Miscellaneous: No inguinal hernias are seen. Bones: Visualized osseous structures demonstrate no suspicious focal lesions. IMPRESSION: 1. Large cyst in the lower abdomen and pelvis likely ridging from the left ovary with associated eccentric soft tissue thickening appears increased in size compared to the prior ultrasound studies given differences in technique. 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 Associated adjacent fat stranding and free fluid are nonspecific but may reflect sequelae of partial cyst rupture or associated ovarian torsion. Recommend correlation clinically and further evaluation with ultrasound if indicated. Dictated by: Ethan Ricardo M.D. on 10/10/2021 at 21:48 Approved by: Ethan Ricardo M.D. on 10/10/2021 at 22:02
[2021-10-10 20:42] LABS: Add Manual Diff / Slide Review NO; Basophils Absolute Auto 100 /uL (0-100); Basophils Percent Auto 0.5 % (0-2); Eosinophils Absolute Auto 100 /uL (0-450); Eosinophils Percent Auto 0.7 % (2-4); Hematocrit 33.6 % (36-46); Hemoglobin 10.9 g/dL (12.0-16.0); Lymphocytes Absolute Auto 2000 /uL (1100-4500); Lymphocytes Percent Auto 18.6 % (25-40); Mean Corpuscular HGB Conc 32.5 % (30-36); Mean Corpuscular Hemoglobin 24.6 PG (26-34); Mean Corpuscular Volume 75.6 fL (80-100); Monocytes Absolute Auto 800 /uL (0-900); Monocytes Percent Auto 7.1 % (3-14); Neutrophils Absolute Auto 8000 /uL (1500-7000); Neutrophils Percent Auto 73.1 % (50-75); Platelet Count 334 X10^3/uL (150-400); Red Blood Cell Count 4.44 X10^6/uL (4.0-5.2); Red Cell Distribution Width 16.1 % (11.6-14.8)
[2021-10-10] MEDS: HYDROMORPHONE 0.5 MG INJ IV ×2 (20:54→22:35)
[2021-10-10] MEDS: LACTATED RINGERS 1,000 ML 1000 ML IV (20:54)
[2021-10-10] MEDS: ONDANSETRON 4 MG/2 ML INJ IV (20:54)
[2021-10-10 21:10] LABS: Lactate (Lactic Acid) 0.9 mmol/L (0.7-2.1)
--- NOTE | 2021-10-10 21:25 | DI.US.S_ITS ---
PROCEDURE: US PELVIC COMPLETE INDICATIONS: LARGE OVARIAN CYST; INCREASING PAIN TECHNIQUE: Real-time scanning was performed of the pelvic organs, with image documentation. Additional endovaginal scanning was necessary due to incomplete visualization of the adnexal and endometrial structures by transabdominal scanning. COMPARISON: [facility], CT, CT ABDOMEN PELVIS W CON, 10/10/2021, 20:44. [facility], US, US PELVIC LIMITED, 10/08/2021, 9:27. [facility], US, US PELVIC COMPLETE, 04/21/2018, 9:10. FINDINGS: Uterus: Uterus is anteverted and measures 10.7 x 5.1 x 7.2 cm. The endometrium measures up to 0.2 cm. An IUD appears in appropriate position within the endometrium. Ovaries: The right ovary measures 3.2 x 3.1 x 3.4 cm. There is patent arterial flow demonstrated within the right ovary. There is a large cystic mass redemonstrated within the left adnexa measuring approximately 13.0 x 7.5 x 8.6 cm with a thickened wall. There is a large cystic component which appears anechoic with posterior acoustic enhancement. The left ovary was otherwise not separately visualized. No definite arterial flow demonstrated within the soft tissue component of the cystic mass. Other: There is a small amount of free fluid in the pelvis. IMPRESSION: 1. Large thick-walled cystic mass redemonstrated within the left adnexa. This appears progressively increased in size over time and corresponds to the finding on recent CT. 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 2. Arterial flow not definitely identified within the solid wall. The left ovary is not otherwise separately visualized. Ovarian torsion cannot be excluded. The findings were discussed with the patient's surgeon in the emergency room on 10/10/2021 at 11:30 p.m.. We strive to produce accurate, complete, and clear reports of imaging services. To assist us in improving patient care, this report was composed using standard report templates and voice recognition software. Therefore, it may contain abnormal punctuation, insertions and/or omissions. Occasional wrong-word or sound-alike substitutions may occur. Though we review the report and make efforts to correct it, we do recommend that the report be read carefully in proper context to recognize any text inaccuracies. Dictated by: Ethan Ricardo M.D. on 10/11/2021 at 0:33 Approved by: Ethan Ricardo M.D. on 10/11/2021 at 0:39
[2021-10-10 21:26] LABS: Alanine Aminotransferase 10 IU/L (<35); Albumin 4.3 g/dL (3.5-5.0); Albumin Globulin Ratio 1.3 (1.0-2.8); Alkaline Phosphatase 61 U/L (38-126); Aspartate Aminotransferase 16 IU/L (14-36); BUN Creatinine Ratio 19.7 (6-22); Blood Urea Nitrogen 12 mg/dL (7-17); Carbon Dioxide 22 mmol/L (22-32); Chloride 101 mmol/L (98-107); Estimated Glomerular Filt Rate > 60 mL/min (>60); Globulin 3.3 g/dL (1.7-4.1); Glucose 100 mg/dL (70-100); HEMOLYSIS < 15 (0-50); Lipase 86 U/L (23-300); Potassium 3.6 mmol/L (3.4-5.1); Sodium 138 mmol/L (137-145); Total Protein 7.6 g/dL (6.3-8.2)
[2021-10-11] VITALS (32 sets, daily range): BP systolic 110–169; BP diastolic 56–93; PULSE 78–121; RESP 17–24; TEMP 36.3–37.7; O2SAT 96–100; BMI 27.6
--- NOTE | 2021-10-11 | PATH_ITS ---
[facility] Accession Number: [id number] . 01 Material submitted: . fallopian tube - LEFT FALLOPIAN TUBE . 01 Diagnosis: Left Fallopian Tube, Salpingectomy: Extensive hemorrhagic infarction of fallopian tube with associated hemosalpinx and hydrosalpinx, consistent with torsion. See comment. MRV 10/17/2021 1821 Local . 01 Comment: Much of the tissue is necrotic/infarcted. Focally a scant residual single layer of epithelium is present, which is degenerated and shows atypia compatible with reactive/reparative changes. A proliferating epithelial lesion is not identified. The cystic structure identified at gross examination appears to most likely be marked dilatation of the fallopian tube. A definitive neoplastic cyst is not seen. . This case is also reviewed by Dr. Erlinda Orr, who concurs with the given interpretation. . 01 Electronically signed: . Imelda Ramos MD, Pathologist NPI- [id number] . 01 Gross description: . Received in formalin labeled with the patient's name and left fallopian tube consists of a fimbriated fallopian tube (7.5 x 0.8 cm distorted by a large cystic structure that is distorting the fimbriae that measures 11.2 x 8.1 x 7.1 cm. The external surface is red-brown, congested, and smooth with a small polypoid structure extending 0.7 cm from the surface. The external surface is inked blue. Opening the specimen reveals a thin-walled cystic structure filled with a large amount of red-galvan serous fluid. The internal surface has multiple roughened hemorrhagic areas measuring up to 3.8 cm in greatest dimension. The rg range in thickness from 0.1 to 2.5 cm, and sectioning the thickened areas reveals red-brown firm cut surface with no identifiable remaining fallopian tube on cross-section. No papillary excrescences are identified. Cement Worker sections are submitted as follows: A1-A3: Fimbriae. A4-A7: Cement Worker sections. ([id number]) /MRV 10/13/2021 1128 Local . 01 Pathologist provided ICD-10: N83.529 . 01 CPT . 827585 Specimen Comment: A courtesy copy of this report has been sent to [facility] Performed at: 01 [facility] [address] [place] [address], [place], [place] [id number] MD Ethan Vasquez MD Phone: [phone]
--- NOTE | 2021-10-11 00:13 | P.CONS_ITS ---
History of Present Illness Consult details Date Patient Seen: 10/10/21 Time Patient Seen: 11:45 Chief complaint: severe abdominal pain Reason for consult: Large left ovarian cyst, worsening acute pain Narrative: 41 yo female presents to the ED due to worsening abdominal pain. Patient seen 2 days ago in the ED for acute left-sided abdominal pain which felt similar to pain from an ovarian cyst in the past. Patient with a known left-sided cyst, possible paraovarian, that was being followed over the past several years. Cyst was simple in appearance and was being followed. Patient had onset of left- sided discomfort 2 days ago and cyst was noted to have increased in size from 2018 from 9 to 11 cm, appeared simple in appearance. Doppler flow seen to the ovary. She had a consult scheduled for tomorrow but presented to ED tonight with acute worsening abdominal discomfort. Discomfort was on her left side 2 days ago, now is on left side radiating to the midline. She has had decreased appetite for the past 3 days and nausea associated with the pain for the past 2 days. No emesis. Pain is exacerbated by movement. Pain worsens in intensity intermittently. No fever. Positive harder stool since starting oxycodone 2 days ago, otherwise was having normal stools. . Meds Home Medications and Allergies Home Medications Medication Instructions Recorded Confirmed Type losartan 50 mg tablet 50 mg PO DAILY ##0 08/27/16 10/11/21 History methotrexate (PF) 20 mg/0.4 mL 20 mg SUBCUT QWEEK 03/11/18 10/11/21 History subcutaneous auto-injector folic acid 1 mg tablet 1 mg PO DAILY 04/04/18 10/11/21 History oxycodone 5 mg tablet 5 mg PO QID PRN pain #20 tabs 09/25/21 10/11/21 Rx Allergies Allergy/AdvReac Type Severity Reaction Status Date / Time NSAIDS (Non-Steroidal AdvReac Verified 09/25/21 07:27 Anti-Inflamma Review of Systems Review of Systems ROS: Yes All systems reviewed with the patient and are negative except as otherwise documented Genitourinary Genitourinary: Reports menorrhagia (since copper IUD insertion 11 yrs ago) Exam Vital Signs (past 8 hours): - 10/10/21 20:02 10/10/21 20:20 10/10/21 21:10 Temperature 99 F 99.7 F H Pulse Rate 114 H 109 H Respiratory Rate 18 18 Blood Pressure 159/86 H 135/90 135/79 Pulse Oximetry 97 98 Oxygen Delivery Method Room Air Room Air 10/10/21 21:19 10/10/21 21:30 10/10/21 21:30 Temperature Pulse Rate 107 H 100 H Respiratory Rate Blood Pressure 129/73 Pulse Oximetry 98 98 Oxygen Delivery Method 10/10/21 22:00 10/10/21 22:00 10/10/21 22:30 Temperature Pulse Rate 106 H Respiratory Rate Blood Pressure 144/81 H 146/82 H Pulse Oximetry 97 Oxygen Delivery Method 10/10/21 22:30 Temperature Pulse Rate 110 H Respiratory Rate Blood Pressure Pulse Oximetry 98 Oxygen Delivery Method Oxygen Delivery Method Room Air Const General: healthy appearing, acute distress (uncomfortable appearing) and anxious Nutritional Appearance: average body habitus Orientation: alert HENMT Head: normocephalic GI Inspection: normal to inspection and distended ( fullness palpable lower abdomen, up to 2 cm below the umbilicus) Palpation: soft, No guarding and tender (left lower to midline lower abdomen very tender, mild left upper tenderness) Auscultation: normal bowel sounds Objective Imaging CT scan - pelvis: Radiologist's impression: Date of Service: 10/10/21 PROCEDURE:? CT ABDOMEN PELVIS W CON ? INDICATIONS:? severe abdominal pain, gastric sleeve, ovarian cyst ? TECHNIQUE:? After the administration of IV contrast, axial sections were acquired from the lung bases to the pubic symphysis.? Coronal and sagittal reformats were performed.? For radiation dose reduction, the following was used:? automated exposure control, adjustment of mA and/or kV according to patient size. ? COMPARISON:? [facility], , US PELVIC LIMITED, 10/08/2021, 9:27.? [facility], CT, CT HIGH RESOLUTION CHEST, 03/02/2021, 11:00.? [facility] , CT, ABD/PELVIS W/CON (PNL), 02/15/2011, 14:30. ? FINDINGS:? Image quality:? Diagnostic. ? Lung bases:? Unremarkable.? ? Heart:? Heart is normal in size.? There is a partially visualized small cystic collection demonstrated adjacent to the right cardiac contours which appears similar to the prior chest CT where visualized and likely represents pericardial recess fluid. ? ? ABDOMEN: Liver:? No mass lesion. Gallbladder:? Within normal limits without calcified gallstones.? ? Biliary ducts:? No biliary ductal dilatation.? ? Pancreas:? Unremarkable.? ? Spleen:? Normal in size.? ? Adrenal Glands:? There is a small fat-containing left adrenal nodule measuring up to 0.9 cm.? 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 Kidneys and Ureters:? No hydronephrosis.? There is a small right renal cyst redemonstrated. ? ? Stomach and Bowel:? Postsurgical changes are demonstrated along the stomach consistent with prior gastric sleeve procedure.? Stomach, small bowel loops, and colon are normal in caliber and wall thickness.? No evidence of appendicitis.? Peritoneum:? No abnormal intraperitoneal fluid.? No free air.? ? Ventral Wall: ? No hernia.? Abdominal Nodes:? No retroperitoneal or mesenteric adenopathy by size criteria.? Vessels:? Aorta and inferior vena cava are normal in size.? ? PELVIS: Pelvic Organs:? There is a large cystic lesion demonstrated anteriorly within the lower abdomen and pelvis, measuring approximately 11.3 x 8.1 cm in transverse dimension with eccentric wall thickening along the left and posterior aspects.? There is adjacent free fluid and fat stranding.? Right ovary appears within normal size limits.? IUD appears in appropriate position within the uterus.? Pelvic Nodes: No enlarged lymph nodes.? Miscellaneous: No inguinal hernias are seen. ? ? ? Bones:? Visualized osseous structures demonstrate no suspicious focal lesions. ? IMPRESSION:? ? 1. Large cyst in the lower abdomen and pelvis likely ridging from the left ovary with associated eccentric soft tissue thickening appears increased in size compared to the prior ultrasound studies given differences in technique.? 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 Associated adjacent fat stranding and free fluid are nonspecific but may reflect sequelae of partial cyst rupture or associated ovarian torsion.? Recommend correlation clinically and further evaluation with ultrasound if indicated. Dictated by: Ethan Ricardo M.D. on 10/10/2021 at 21:48 ? ? Approved by: Ethan Ricardo M.D. on 10/10/2021 at 22:02 ? ? Pelvic ultrasound: Radiologist's impression: COMPARISON:? [facility], CT, CT ABDOMEN PELVIS W CON, 10/10/2021, 20:44.? [facility], US, US PELVIC LIMITED, 10/08/2021, 9:27.? [facility], , PELVIC COMPLETE, 04/21/2018, 9:10. ? FINDINGS:? ?? Uterus:? Uterus is anteverted and measures 10.7 x 5.1 x 7.2 cm.? The endometrium measures up to 0.2 cm.? An IUD appears in appropriate position within the endometrium. ? Ovaries:? The right ovary measures 3.2 x 3.1 x 3.4 cm.? There is patent arterial flow demonstrated within the right ovary. ? There is a large cystic mass redemonstrated within the left adnexa measuring approximately 13.0 x 7.5 x 8.6 cm with a thickened wall.? There is a large cystic component which appears anechoic with posterior acoustic enhancement.? The left ovary was otherwise not separately visualized.? No definite arterial flow demonstrated within the soft tissue component of the cystic mass. ? Other:? There is a small amount of free fluid in the pelvis. ? ? IMPRESSION:? ? 1. Large thick-walled cystic mass redemonstrated within the left adnexa.? This appears progressively increased in size over time and corresponds to the finding on recent CT.? 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 ? 2.? Arterial flow not definitely identified within the solid wall.? The left ovary is not otherwise separately visualized.? Ovarian torsion cannot be excluded. ? The findings were discussed with the patient's surgeon in the emergency room on 10/10/2021 at 11:30 p.m.. ? ? ? We strive to produce accurate, complete, and clear reports of imaging services. To assist us in improving patient care, this report was composed using standard report templates and voice recognition software. Therefore, it may contain abnormal punctuation, insertions and/or omissions. Occasional wrong-word or sound-alike substitutions may occur. Though we review the report and make efforts to correct it, we do recommend that the report be read carefully in proper context to recognize any text inaccuracies. ? ? Dictated by: Ethan Ricardo M.D. on 10/11/2021 at 0:33 ? ? Approved by: Ethan Ricardo M.D. on 10/11/2021 at 0:39 ? Labs Result Diagrams: 10/11/21 11:03 10/10/21 20:20 Labs: Laboratory Results - last 24 hr 10/10/21 10/10/21 10/10/21 20:20 20:20 20:20 WBC 11.0 RBC 4.44 Hgb 10.9 L Hct 33.6 L MCV 75.6 L MCH 24.6 L MCHC 32.5 RDW 16.1 H Plt Count 334 Neut % (Auto) 73.1 Lymph % (Auto) 18.6 L [place] % (Auto) 7.1 Eos % (Auto) 0.7 L Baso % (Auto) 0.5 Neut # (Auto) 8000 H Lymph # (Auto) 2000 [place] # (Auto) 800 Eos # (Auto) 100 Baso # (Auto) 100 Sodium Cancelled 138 Potassium Cancelled 3.6 Chloride Cancelled 101 Carbon Dioxide Cancelled 22 BUN Cancelled 12 Creatinine Cancelled 0.61 Estimated GFR Cancelled > 60 BUN/Creatinine Ratio Cancelled 19.7 Glucose Cancelled 100 Lactate Calcium Cancelled 9.0 Total Bilirubin Cancelled 1.0 AST Cancelled 16 ALT Cancelled 10 Alkaline Phosphatase Cancelled 61 Total Protein Cancelled 7.6 Albumin Cancelled 4.3 Globulin Cancelled 3.3 Albumin/Globulin Ratio Cancelled 1.3 Lipase 86 Blood Type Antibody Screen 10/10/21 10/10/21 20:20 21:00 WBC RBC Hgb Hct MCV MCH MCHC RDW Plt Count Neut % (Auto) Lymph % (Auto) [place] % (Auto) Eos % (Auto) Baso % (Auto) Neut # (Auto) Lymph # (Auto) [place] # (Auto) Eos # (Auto) Baso # (Auto) Sodium Potassium Chloride Carbon Dioxide BUN Creatinine Estimated GFR BUN/Creatinine Ratio Glucose Lactate 0.9 Calcium Total Bilirubin AST ALT Alkaline Phosphatase Total Protein Albumin Globulin Albumin/Globulin Ratio Lipase Blood Type A Positive Antibody Screen Negative [facility] Medical History (Updated 10/11/21 @ 17:58 by Arlene Fields MD) Pelvic pain Rheumatoid arthritis Surgical History (Updated 10/11/21 @ 00:38 by Arlene Fields MD) H/O gastric sleeve Tobacco & Substance Use Smoking Status: Former smoker Tobacco: How many years used: 3 second hand exposure: No alcohol intake: current (beer 3 times a year. Only on special occasions.) substance use type: does not use Assessment & Plan Assessment and plan (1) Ovarian cyst: Qualifiers: Laterality: left Qualified Code(s): N83.202 - Unspecified ovarian cyst, left side Status: Acute (2) Acute pelvic pain: Status: Acute (3) Heavy menses due to IUD: Problem details: IUD due for removal per pt, desires removal Status: Acute Plan Acute pain, probable leakage of ovarian or other pelvic cyst, possible ovarian torsion. Recommended proceeding with surgery due to symptomatic large pelvic cyst, probable leaking and possible torsion. Discussed much of the cyst has a benign appearance, but CT radiology report concern for neoplasm and on discussing with radiologist did feel concern for malignancy due to thick wall of the cyst and adjacent soft tissue thickening. Placed phone call to transer line for consideration of transfer to a facility for availability gynaecological oncologist oncologist and frozen section, due to reading on CT of concern for ovarian malignancy. Recommend laparoscopic salpingo oophorectomy and not ovarian cystectomy due to large size the cyst as well as concern for possible malignancy or risks for borderline tumor with the size. Call placed shortly after midnight. Discussed with patient await consultation with gynaecological oncologist oncologist for assessing best location for pt for surgery. Call placed to shortly after midnight. They requested PACs pictures of ultrasound and CT be sent. Initially they had difficulty in obtaining CT pictures through Pacs,but received ultrasound. Subsequently transfer center called with update at approximately 4:00 a.m, PACS images had been received by them., but now awaiting call back from gynaecological oncologist physician on-call, was not able to reach them. Repeat phone call placed by wi near 8 am, transfer center had placed a call already at to gynaecological oncologist oncologist taking over call. Again PACS images were requested, now for the ultrasound, physician not able to obtain. Approximately 10:30 a.m. g[address]ecological oncologist oncologist Dr Janae Valdivia did call me and declined transfer due to no beds available at their institution as well as not being able to still obtain ultrasound pictures. She was able to view CT and felt overall benign appearance but indeterminate. Would not except her without being able to see ultrasound images as well as no beds. She felt it was fine to proceed with surgery here. I had not initially called gynaecological oncologist oncologist associated with [facility] as hospital reported that is full. At this time I called [facility] gynaecological oncologist Oncology office at 1130. Doctor on- call called back and spoke with me at 1330. After review of CT and ultrasound reports she felt pelvic cyst was likely benign, vs borderline,due to overall anechoic appearance and being present over many years with gradual growth. [place] ovarian wall thickness was likely due to possible torsion. She did not desire to view the images but felt benign and recommended proceeding with surgery at our institution. Stated there OR was booked for 3 days would not be able to add her in earlier. She also stated she would not proceed her institution in doing anything further besides salpingo-oophorectomy, even if cyst was borderline. Then would follow closely. Patient had slept some overnight and was comfortable with pain medication.. Her pulse had decreased from 100s to 80s. BP stable. Temperature remains afebrile. Hemoglobin with 1 gmdecrease on repeat CBC but patient with heavy menses for 2 days, chronically mildly anemic. Repeat abdominal exam at 750 am, abdomen with some mild increased distension but still overall soft. Patient with some diffuse tenderness now In the a.m. I had added the patient on to our OR schedule here in case not accepted for transfer elsewhere. 1345 I discussed with the patient that both gynaecological oncologist oncologist felt this was more likely benign versus at most may be borderline and declined transfer with hospitals being full and surgery schedules being delayed. Recommended proceeding with procedure here. She is agreeable to proceeding with surgery. She requested IUD removal as well, due for removal and has been having heavy menses since IUD insertion. PLAN: Will proceed with surgery for symptomatic large pelvic cyst, likely left ovarian versus other adnexal, para ovarian cyst. Possible left ovarian torsion. Discussed with the patient proceeding if ovarian cyst with oophorectomy and not cystectomy, to try to prevent further leakage of the cyst and cyst rupture. Discussed with large size of ovary and cyst, high risk for laparotomy. Consented for diagnostic laparoscopy, left salpingo-oophorectomy or removal of other pelvic cyst if other source, probable laparotomy. Discussed if both ovaries normal and cyst is another source, then would not remove a normal appearing ovary. Also consented to IUD removal. Patient reports strings have been visible. If not visible however discussed at times may need a hysteroscopy for removal. Procedure fully reviewed as above. Risks of surgery reviewed including bleeding, infection, injury to adjacent internal organs including bladder and ureters, bowel and large blood vessels. Discussed ureter runs close to ovarian blood supply and anatomy tense to be distorted with large ovarian cyst so some increased risk for ureteral injury. Her baseline hemoglobin starting low, discussed risk for blood transfusion and reviewed risks of blood transfusion. She would accept a blood transfusion if needed. Verbal and written consent obtained. Time Spent With Patient Critical Care time: I spent a total of [] minutes of critical care time on this patient's care today; this time is exclusive of procedural time.
[2021-10-11] MEDS: LACTATED RINGERS 1,000 ML 125 ML IV (00:20)
[2021-10-11] MEDS: HYDROMORPHONE 0.5 MG INJ IV ×9 (00:21→19:52)
[2021-10-11 00:52] LABS: COVID19 -Nasal RAPID Negative (Negative)
--- NOTE | 2021-10-11 05:58 | PC.NURSE ---
stated the dilaudid helped her pain at 0410.
[2021-10-11 11:24] LABS: Add Manual Diff / Slide Review NO; Basophils Absolute Auto 0 /uL (0-100); Basophils Percent Auto 0.5 % (0-2); Eosinophils Absolute Auto 100 /uL (0-450); Hematocrit 28.3 % (36-46); Hemoglobin 9.2 g/dL (12.0-16.0); Lymphocytes Absolute Auto 1900 /uL (1100-4500); Lymphocytes Percent Auto 23.8 % (25-40); Mean Corpuscular HGB Conc 32.4 % (30-36); Mean Corpuscular Hemoglobin 24.5 PG (26-34); Mean Corpuscular Volume 75.7 fL (80-100); Monocytes Absolute Auto 700 /uL (0-900); Monocytes Percent Auto 8.5 % (3-14); Neutrophils Absolute Auto 5300 /uL (1500-7000); Neutrophils Percent Auto 66.2 % (50-75); Platelet Count 265 X10^3/uL (150-400); Red Blood Cell Count 3.74 X10^6/uL (4.0-5.2); Red Cell Distribution Width 15.6 % (11.6-14.8)
[2021-10-11] MEDS: LACTATED RINGERS 1,000 ML 100 ML IV ×2 (13:49→22:42)
[2021-10-11 13:50] LABS: Cancer Antigen 125 34.4 U/mL (0-35)
--- NOTE | 2021-10-11 16:49 | PC.NURSE ---
Admit Note Pt to room 223 from ER at 1442 via wheelchair, walked self to bed, steady on feet. Alert and oriented x4. Pain 7/10 to lower abdomen, 0.5 mg dilaudid given per emar, pt reports effective on reassessment. SpO2 99% on RA. Denies nausea. Oriented to room and to call light/bed/tv controls and visitor policy. Jewelry (to be taken off before surgery), clothing, shoes, and cell phone in room. Declines need to lock up any valuables. NPO. Awaiting surgery this afternoon.
[2021-10-11] MEDS: CEFAZOLIN 2 GM/20 ML SYRINGE IV ×2 (19:52→21:55)
--- NOTE | 2021-10-11 21:19 | PM.PREOP ---
Pre-operative Note COVID-19 COVID-19 status: Negative Result date/Date tested (Pos, Neg/Pending): 10/10/21 Criteria for continued procedure: Continuing or worsening of significant or severe pain Interval Note History & Physical reviewed/Exam performed by Physician: Yes Changes to H&P: No
[2021-10-11] MEDS: BUPIVACAINE 0.25% (PF) 30 ML, EPINEPHrine 0.15 MG INJ (21:30)
--- NOTE | 2021-10-11 21:50 | SUR.OPER ---
Supine on padded OR bed, head on pillow, arms secured on padded arm boards at <90 degrees abduction, legs uncrossed, safety belt at thigh. Patient briefly placed in lithotomy position for removal of IUD & lazaro catheter placement.
[2021-10-11] MEDS: fentaNYL 100 MCG/2 ML INJ IV ×2 (23:07→23:25)
[2021-10-11] MEDS: LORazepam 2 MG/ML INJ 0.25 MG IV (23:07)
[2021-10-11] MEDS: ONDANSETRON 4 MG/2 ML INJ IV (23:07)
[2021-10-11] MEDS: HYDROMORPHONE 2 MG INJ IV ×2 (23:08→23:26)
--- NOTE | 2021-10-11 23:19 | P.OP_ITS ---
Operative Date/Time/Diagnoses Date of procedure: 10/11/21 Time of procedure: 22:00 Pre-op diagnosis: symptomatic large adnexal cyst Post-op diagnosis: other (enlarged cystic left fallopian tube, hydrosalpinx. Left fallopian tube torsion) Procedure & Clinicians Procedure: 1.Diagnostic laparoscopy. Laparotomy, left salpingectomy. 2. Removal of IUD Same procedure as scheduled: No (Left oophorectomy not performed, as cyst did not involve the left ovary) Indications: 1.Symptomatic large left pelvic cyst, likely ovarian with probable torsion 2.heavy menses with IUD, due for removal Surgeon: Arlene Fields Cash Office Worker: Radha Hook Anesthesia Type: General Operative Notes Findings: Large cystic hemorrhagic fallopian tube, torsed. Normal appearing left ovary, right tube, right ovary and uterus. Normal appearing upper abdomen. No abdominal or pelvic adhesions. Closure Type: primary Specimen(s): other (1. pelvic washings 2. left fallopian tube) Applied: catheter (Alvarado) Estimated Blood Loss (mL): 5 Blood products transfused: none Procedure in detail: IV fluids: 1000 ml crystalloid Urine output: 100 mL Description of procedure: She was transferred to the operating room. SCDs were placed. After an adequate level of general anesthesia was obtained, she was placed in [facility] in the dorsal lithotomy position. Time-out was taken the patient and procedure was identified. A Graves speculum was placed. IUD strings were visible and the IUD was removed without difficulty. The speculum was removed. Bimanual examination was performed and the size. location of the cyst was assessed. It extended approximately 4 cm beneath her umbilicus. A Alvarado catheter was placed and she was then taken out of the stirrups and placed in the supine position. She was prepped and draped in routine sterile fashion. After injection of 1/4%marcaine with epinephrine, a small vertical infraumbilical incision was made and carried down to level of fascia. The fascia was elevated and incised. The peritoneum was grasped, incised e and the abdomen was entered. A Martinez trocar was placed and anchored to the fascia. The camera was placed. The abdomen was insufflated with CO2 gas. The pelvis was inspected and a large hemorrhagic cystic mass was noted in the lower midline over the uterus and extending to the left side. The upper abdomen was inspected with normal findings. There were no abdominal or pelvic adhesions. A secondary trocar was placed in the left upper abdomen under direct visualization without difficulty. It was unclear at this time whether this was ovarian or involving ovary and/or tube. Pelvic washings was performed. She was placed in mild Trendelenburg. A blunt probe was placed and the bowel and omentum was pushed back out of the pelvis away from the cystic mass. The mass was noted to be mobile and on moving it did appear torsed and it untwisted one time. The cystic mass appeared hemorrhagic consistent with torsion. It did have a smooth surface. However with ultrasound findings, there was uncertainty whether this could be a borderline cyst or possibility of malignancy. On assessing cyst size being larger than could fit in an Endo-Catch bag, and without wanting to drain cyst and risk leakage of cystic fluid; as well as overall thin walled cyst without any good place to grasp it without risking cyst rupture, needing to grasp it to elevate it to view inferior to cyst to view possible pedicles and blood supply; decision made to proceed with laparotomy. The Martinez trocar was removed. The CO2 gas was allowed to escape from the abdomen. The fascia was closed at the umbilical incision with interrupted 0 Vicryl. The skin incisions were left to close later. A Pfannenstiel skin incision was made in the lower abdomen and carried down to the level of the fascia. The fascia was incised in the midline and was bluntly extended transversely. The superior and inferior edges of the fascia were elevated and dissected off the rectus muscles with sharp and blunt dissection. The muscles were bluntly in the midline. The parietal peritoneum was elevated, incised and extended bluntly. Upon entering there was some hemorrhagic fluid in the abdomen which was suctioned. She was placed in mild Trendelenburg. A small Otdd retractor was placed. The cyst was mobile and able to be elevated through the incision. Upon inspection it was evident that this only involved the left fallopian tube. It was torsed a few times and further untwisted. A Heriberto clamp was placed inferior to the tubal cystic mass, across a small portion of normal fallopian t ube and mesosalpinx. A 2nd Heriberto clamp was placed and the tube, pedicle was excised between the Heriberto clamps and the mass was handed off the specimen. It did appear to be cystic dilated fallopian tube with the fimbriated end noted over the tube. A suture ligature of 0 Vicryl was placed around the remaining portion of normal fallopian to in mesosalpinx pedicle, suture ligature was placed anchoring to the edge of ovarian cortex. Subsequently a free tie was placed of 0 Vicryl. Good hemostasis was noted. The pelvis was then further inspected with the above-noted remaining normal findings. A small portion of normal left fallopian tube going into the cornua was remaining. On inspection, with the left ovary being normal size and normal appearance, it was not removed. The abdomen was then closed. The Todd retractor was removed. The muscles were allowed to reapproximate naturally in the midline. The fascia was closed with running continuous suture of 0 Vicryl, with 2 lengths starting at the angles and meeting in the middle. The subcutaneous tissue was irrigated. The subcutaneous tissue was reapproximated by reapproximating Tatyana's fascia with 3-0 Vicryl. The laparotomy skin incision and trocar incisions were closed with a subcuticular suture of 4 0 Monocryl. Steri-Strips and sterile Aquacel dressing was placed. She tolerated the procedure well and went to the recovery room in stable condition. Complications: none Post-operative Condition: stable Disposition: PACU
[2021-10-12] VITALS (11 sets, daily range): BP systolic 108–149; BP diastolic 62–88; PULSE 72–110; RESP 14–22; TEMP 35.9–37.2; O2SAT 94–99
[2021-10-12] MEDS: HYDROMORPHONE 0.5 MG INJ IV ×4 (00:42→11:51)
[2021-10-12] MEDS: LACTATED RINGERS 1,000 ML 100 ML IV (04:53)
[2021-10-12] MEDS: LOSARTAN 50 MG TABLET PO (08:11)
[2021-10-12] MEDS: OXYCODONE/ACETAMINOPHEN 5/325 TABLET 1 TAB PO ×4 (08:56→21:02)
[2021-10-12] MEDS: CALCIUM CARBONATE 500 MG TAB 1000 MG PO (09:21)
[2021-10-12] MEDS: FAMOTIDINE 20 MG/2 ML VIAL IV (10:49)
--- NOTE | 2021-10-12 13:22 | PM.PNPO.1 ---
Subjective Subjective Date Patient Seen: 10/12/21 Time Patient Seen: 12:30 Interval history: Pt overall feeling well. +incisional discomfort, but reports less discomfort than prior to her surgery. Discomfort relieved with IV delighted. She is going to try oxycodone now that she is eating a little more for lunch. Had heartburn this a.m., improved after Pepcid. No nausea or vomiting. No flatus yet. Alvarado out, await void. Exam Vital Signs (past 8 hours): - 10/12/21 08:11 10/12/21 09:00 Temperature 98.3 F Pulse Rate 87 87 Respiratory Rate 20 Blood Pressure 122/79 122/79 Pulse Oximetry 97 Oxygen Flow Rate 0 Oxygen Delivery Method Room Air Oxygen Flow Rate 0 Const General: healthy appearing, comfortable (sitting in chair) and No acute distress Orientation: alert and awake GI Inspection: normal to inspection, non-distended and incision (Dressings dry. Abdomen nontender except expected mari-incisional tendernes) Palpation: soft Extrem General: No edema Objective Labs Result Diagrams: 10/11/21 11:03 10/10/21 20:20 Labs: Laboratory Results - last 24 hr 10/11/21 11:13 CA 125 Antigen 34.4 PFSH Medical History (Updated 10/11/21 @ 17:58 by Arlene Fields MD) Pelvic pain Rheumatoid arthritis Surgical History (Updated 10/11/21 @ 00:38 by Arlene Fields MD) H/O gastric sleeve Social History household members: significant other and children Smoking Status: Former smoker Tobacco: How many years used: 3 second hand exposure: No alcohol intake: current substance use type: does not use Assessment & Plan Post-op Postoperative Procedures: Procedures Operation Date: 10/11/21 16:45 Actual Procedure Side Surgeon p Diagnostic laparoscopy, laparotomy, left salpingectomy, IUD removal Arlene Fields MD Postoperative status: doing well Postoperative plan: routine post-op care Postoperative plan narrative: re-reviewed the procedure, findings increase ambulation await void. Await flatus, full GI return Time Spent With Patient Time with patient: 15-24 minutes Quality VTE Deep Vein Thrombosis/Pulmonary Embolism Present on Admission: No
--- NOTE | 2021-10-12 14:39 | CM.DANOTE ---
Initial Discharge Assessment: Case received, EMR reviewed. Met with patient in her room. Payer: [facility] PCP: Reanna Nguyễn 41 year old a/o female was admitted yesterday with abdominal pain and underwent a lap salpingectomy. POD#1 today. Medicated for postoperative pain. P: Patient lives in [place] with her partner and desires to return once discharged. Partner will transport. SEJ Discharge Planning/Care Management CM Discharge Assessment Start: 10/12/21 14:37 Freq: Status: Active Protocol: Document 10/12/21 14:37 (Rec: 10/12/21 14:39 [id number]) Discharge Planning Assessment Assigned Manager Employee Benefits Saskia Fisher RN/OLEGP Advance Directives? No History Provided By Patient Prior Living Arrangements House Household Members significant other,children Type of transporation used prior to Drives own vehicle admit Independent with ADL's Yes Is patient alert and oriented? Yes Caregiver for Another No Barriers to Discharge No Discharge Plan Home Referrals Initiated None needed Whiteboard Updated in Patient Room with Yes name and ext. # of Manager Employee Benefits Review Status In Process Next Review Type Continued Stay Review
[2021-10-12] MEDS: SODIUM CHLORIDE 0.9% FLUSH 10 ML IV (21:02)
[2021-10-13 00:58] VITALS: BP 145/85; PULSE 83; RESP 16; TEMP 37.1; O2SAT 95
[2021-10-13] MEDS: OXYCODONE/ACETAMINOPHEN 5/325 TABLET 1 TAB PO ×3 (05:18→13:18)
[2021-10-13 05:21] VITALS: BP 135/79; PULSE 83; RESP 16; TEMP 36.8; O2SAT 98
[2021-10-13 09:14] VITALS: BP 135/79; PULSE 79
[2021-10-13] MEDS: SODIUM CHLORIDE 0.9% FLUSH 10 ML IV (09:14)
[2021-10-13] MEDS: LOSARTAN 50 MG TABLET PO (09:14)
[2021-10-13] MEDS: SIMETHICONE 80 MG TABLET PO (09:23)
[2021-10-13 10:00] VITALS: BP 125/77; PULSE 68; RESP 17; TEMP 36.8; O2SAT 97
--- NOTE | 2021-10-13 12:24 | PM.PN.1 ---
Subjective Subjective Date Patient Seen: 10/13/21 Time Patient Seen: 11:40 Interval history: Post-op Day 1 Patient reports doing well overnight. Expected incisional discomfort with movement, getting out of bed but controlled with rest. Tolerating p.o.. No nausea or emesis. Had some flatus twice yesterday. Emptying her bladder without a problem. No fever chills. Menstrual period is tapering off. Exam Vital Signs (past 8 hours): - 10/13/21 05:21 10/13/21 09:14 10/13/21 10:00 Temperature 98.3 F 98.2 F Pulse Rate 83 79 68 Respiratory Rate 16 17 Blood Pressure 135/79 135/79 125/77 Pulse Oximetry 98 97 Oxygen Flow Rate 0 Oxygen Delivery Method Room Air Oxygen Flow Rate 0 Narrative Exam Narrative: General: Well-appearing female in no acute distress Abdomen: Soft, minimal expected distension after laparoscopy. Nontender except for expected mari-incisional tenderness. Dressings are dry and intact. No erythema around the dressings. Extremities: No edema Objective Labs Result Diagrams: 10/11/21 11:03 10/10/21 20:20 [facility] Medical History (Updated 10/11/21 @ 17:58 by Arlene Fields MD) Pelvic pain Rheumatoid arthritis Surgical History (Updated 10/13/21 @ 12:32 by Arlene Fields MD) H/O gastric sleeve Hx of unilateral salpingectomy Social History household members: significant other and children Smoking Status: Former smoker Tobacco: How many years used: 3 second hand exposure: No alcohol intake: current substance use type: does not use Assessment & Plan Assessment and plan (1) S/P laparotomy: Status: Acute Plan And left distal salpingectomy for large left hydrosalpinx lash tubal cyst with torsion. Postop day 1 1/2, doing well. Had return of GI function with flatus. Discharge home. Discharge instructions reviewed. 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 Time Spent With Patient Critical Care time: I spent a total of [] minutes of critical care time on this patient's care today; this time is exclusive of procedural time. Quality VTE Deep Vein Thrombosis/Pulmonary Embolism Present on Admission: No
== END 2021-10-13 13:35 | disposition home or self-care (01) ==
LOC: ED 22:29 → AC 10-11 14:41
PROVIDERS: Admitting Provider Obstetrics & Gynecology; Emergency Provider Emergency Medicine; PCP Family Medicine; Referring Provider Emergency Medicine; Visit Provider Obstetrics & Gynecology
PROC: (CPT 58301; principal; 2021-10-11 16:45)
DX: N83.202 Unspecified ovarian cyst, left side (principal); N92.0 Excessive and frequent menstruation with regular cycle; Z30.432 Encounter for removal of intrauterine contraceptive device; Z98.890 Other specified postprocedural states; Z20.822 Contact with and (suspected) exposure to COVID-19; N70.11 Chronic salpingitis; N83.522 Torsion of left fallopian tube
CPT/HCPCS: 58301; 58700; 36415; 74177; 76830; 76856; 76857; 80053; 81003; 81015; 81025; 83605; 83690; 85025; 86304; 86850; 86900; 86901; 87040; 87635; 96361; 96374; 96375; 96376; 99219; 99284; C9803; G0378; J0171; J0690; J1100; J1170; J2060; J2250; J2405; J2704; J3010; Q9967

== ENCOUNTER → 2021-12-22 15:19 | Outpatient (CLI) | payer OTHER, SELFPAY ==
[2021-10-11 15:52] VITALS: BMI 27.6
[2021-12-22 15:56] LABS: Add Manual Diff / Slide Review NO; Basophils Absolute Auto 0 /uL (0-100); Basophils Percent Auto 0.5 % (0-2); Eosinophils Absolute Auto 200 /uL (0-450); Hematocrit 29.4 % (36-46); Hemoglobin 9.5 g/dL (12.0-16.0); Lymphocytes Absolute Auto 2700 /uL (1100-4500); Lymphocytes Percent Auto 30.6 % (25-40); Mean Corpuscular HGB Conc 32.1 % (30-36); Mean Corpuscular Hemoglobin 23.6 PG (26-34); Mean Corpuscular Volume 73.5 fL (80-100); Monocytes Absolute Auto 500 /uL (0-900); Monocytes Percent Auto 5.8 % (3-14); Neutrophils Absolute Auto 5400 /uL (1500-7000); Neutrophils Percent Auto 61.1 % (50-75); Platelet Count 297 X10^3/uL (150-400); Red Cell Distribution Width 15.5 % (11.6-14.8); White Blood Cell Count 8.8 X10^3/uL (4.5-11.0)
[2021-12-22 16:14] LABS: Erythrocyte Sedimentation Rate 26 MM/HR (0-20)
[2021-12-22 16:27] LABS: Alanine Aminotransferase 13 IU/L (<35); Albumin Globulin Ratio 1.3 (1.0-2.8); Alkaline Phosphatase 50 U/L (38-126); Aspartate Aminotransferase 16 IU/L (14-36); BUN Creatinine Ratio 22.5 (6-22); Bilirubin Total 0.6 mg/dL (0.2-1.3); Blood Urea Nitrogen 16 mg/dL (7-17); C-Reactive Protein Quant < 0.5 mg/dL (<1.0); Calcium 8.8 mg/dL (8.4-10.2); Carbon Dioxide 25 mmol/L (22-32); Chloride 105 mmol/L (98-107); Estimated Glomerular Filt Rate > 60 mL/min (>60); Globulin 3.2 g/dL (1.7-4.1); Glucose 90 mg/dL (70-100); HEMOLYSIS < 15 (0-50); Potassium 3.9 mmol/L (3.4-5.1); Sodium 138 mmol/L (137-145); Total Protein 7.2 g/dL (6.3-8.2)
== END ==
PROVIDERS: PCP Family Medicine; Referring Provider Specialist/Technologist Athletic Trainer; Visit Provider Specialist/Technologist Athletic Trainer
DX: M06.09 Rheumatoid arthritis without rheumatoid factor, multiple sites (principal); Z51.81 Encounter for therapeutic drug level monitoring; D84.9 Immunodeficiency, unspecified
CPT/HCPCS: 36415; 80053; 85025; 85651; 86140

== ENCOUNTER → 2022-02-07 15:13 | Outpatient (CLI) | payer OTHER, SELFPAY ==
[2021-10-11 15:52] VITALS: BMI 27.6
[2022-02-07 15:57] LABS: Reticulocyte Count, Percent 1.4 % (1.1-2.6)
[2022-02-07 16:12] LABS: Iron 19 ug/dL (37-170)
[2022-02-07 16:25] LABS: Percent Iron Saturation 4 % (15-50); Total Iron Binding Capacity 424 ug/dL (265-497); Transferrin 298 mg/dL (206-381)
[2022-02-07 16:51] LABS: Ferritin 5 ng/mL (6-137)
[2022-02-07 18:35] LABS: Vitamin B12 724 pg/mL (239-931)
[2022-02-08 08:45] LABS: Haptoglobin 126 mg/dL (33-278)
[2022-02-09 13:09] LABS: Albumin 3.5 g/dL (2.9-4.4); Alpha-1-Globulin 0.2 g/dL (0.0-0.4); Alpha-2-Globulin 0.7 g/dL (0.4-1.0); Gamma Globulin 1.2 g/dL (0.4-1.8); Globulin Total 3.1 g/dL (2.2-3.9); Protein, Total 6.6 g/dL (6.0-8.5)
== END ==
PROVIDERS: PCP Family Medicine; Referring Provider Specialist/Technologist Athletic Trainer; Visit Provider Specialist/Technologist Athletic Trainer
DX: M06.09 Rheumatoid arthritis without rheumatoid factor, multiple sites (principal); Z51.81 Encounter for therapeutic drug level monitoring; Z79.899 Other long term (current) drug therapy; D64.9 Anemia, unspecified
CPT/HCPCS: 36415; 82607; 82728; 82746; 83010; 83540; 83550; 84155; 84165; 85045

== ENCOUNTER → 2022-03-26 13:46 | Outpatient (CLI) | payer OTHER, SELFPAY ==
[2021-10-11 15:52] VITALS: BMI 27.6
[2022-03-26 23:07] LABS: Add Manual Diff / Slide Review NO; Basophils Absolute Auto 0 /uL (0-100); Basophils Percent Auto 0.5 % (0-2); Eosinophils Absolute Auto 100 /uL (0-450); Eosinophils Percent Auto 1.4 % (2-4); Hemoglobin 9.8 g/dL (12.0-16.0); Lymphocytes Absolute Auto 2600 /uL (1100-4500); Lymphocytes Percent Auto 33.6 % (25-40); Mean Corpuscular HGB Conc 31.7 % (30-36); Mean Corpuscular Hemoglobin 23.4 PG (26-34); Mean Corpuscular Volume 73.8 fL (80-100); Monocytes Absolute Auto 500 /uL (0-900); Monocytes Percent Auto 6.2 % (3-14); Neutrophils Absolute Auto 4600 /uL (1500-7000); Neutrophils Percent Auto 58.3 % (50-75); Platelet Count 381 X10^3/uL (150-400); Red Blood Cell Count 4.19 X10^6/uL (4.0-5.2); Red Cell Distribution Width 16.1 % (11.6-14.8); White Blood Cell Count 7.9 X10^3/uL (4.5-11.0)
[2022-03-27 03:05] LABS: Alanine Aminotransferase 15 IU/L (<35); Albumin 3.8 g/dL (3.5-5.0); Albumin Globulin Ratio 1.3 (1.0-2.8); Alkaline Phosphatase 44 U/L (38-126); Aspartate Aminotransferase 21 IU/L (14-36); BUN Creatinine Ratio 25.3 (6-22); Bilirubin Total 0.6 mg/dL (0.2-1.3); Blood Urea Nitrogen 20 mg/dL (7-17); C-Reactive Protein Quant < 0.5 mg/dL (<1.0); Calcium 8.5 mg/dL (8.4-10.2); Carbon Dioxide 25 mmol/L (22-32); Chloride 104 mmol/L (98-107); Estimated Glomerular Filt Rate > 60 mL/min (>60); Glucose 56 mg/dL (70-100); HEMOLYSIS < 15 (0-50); Potassium 4.2 mmol/L (3.4-5.1); Sodium 138 mmol/L (137-145); Total Protein 6.8 g/dL (6.3-8.2)
[2022-03-27 03:19] LABS: Erythrocyte Sedimentation Rate 17 MM/HR (0-20)
== END ==
PROVIDERS: PCP Family Medicine; Referring Provider Specialist/Technologist Athletic Trainer; Visit Provider Specialist/Technologist Athletic Trainer
DX: M06.09 Rheumatoid arthritis without rheumatoid factor, multiple sites (principal); Z79.899 Other long term (current) drug therapy
CPT/HCPCS: 36415; 80053; 85025; 85651; 86140

== ENCOUNTER → 2022-07-08 11:00 | Outpatient (CLI) | payer OTHER, SELFPAY ==
[2021-10-11 15:52] VITALS: BMI 27.6
== END ==
PROVIDERS: PCP Family Medicine; Visit Provider Nurse Practitioner Family
DX: R30.0 Dysuria (principal)
CPT/HCPCS: 87086

== ENCOUNTER 2022-07-09 02:15 | Emergency (ER) | payer OTHER, SELFPAY ==
[2021-10-11 15:52] VITALS: BMI 27.6
[2022-07-09 02:50] VITALS: BP 149/77; PULSE 101; RESP 20; TEMP 37.7; O2SAT 98; BMI 24.9
--- NOTE | 2022-07-09 03:15 | ED.GENADULT ---
HPI - General Adult General Chief complaint: Urogenital-Female Stated complaint: fever, possible UTI Time Seen by Provider: 07/09/22 03:02 Source: patient Mode of arrival: Ambulatory History of Present Illness HPI narrative: Patient is a 42-year-old female. Two days ago she was started on Macrobid after contacting a [facility] health provider. She is been on it for the past 2 days. After being on it for 24 hours she thought her symptoms were worsening so she went to the walk-in clinic. That was yesterday. She was having some nausea but no vomiting. She is having lower back pain. A urine sample was taken. A urine culture was also taken. No antibiotics were changed. She returns to the emergency department today because she states that she now is having fevers and body aches. She states that the dysuria that she was having has improved somewhat. She is continued to have nausea but no vomiting. Continues to have low back discomfort. Related Data Home Medications Medication Instructions Recorded Confirmed losartan 50 mg tablet 50 mg PO DAILY ##0 08/27/16 07/08/22 methotrexate (PF) 20 mg/0.4 mL 20 mg SUBCUT QWEEK 03/11/18 07/08/22 subcutaneous auto-injector folic acid 1 mg tablet 1 mg PO DAILY 04/04/18 07/08/22 Previous Rx's Medication Instructions Recorded norethindrone (contraceptive) 0.35 0.35 mg PO DAILY #84 tabs 10/13/21 mg tablet (Ortho Micronor) oxycodone-acetaminophen 5 mg-325 1 tab PO Q4H PRN pain #20 tabs 22 mg tablet (Percocet) cephalexin 500 mg capsule 500 mg PO BID 7 days #13 caps 07/09/22 Allergies Allergy/AdvReac Type Severity Reaction Status Date / Time NSAIDS (Non-Steroidal AdvReac Verified 07/08/22 10:57 Anti-Inflamma Review of Systems Constitutional Constitutional: Reports system reviewed and no additional complaints, except as documented Gastrointestinal Gastrointestinal: Reports system reviewed and no additional complaints, except as documented Genitourinary Genitourinary: Reports system reviewed and no additional complaints, except as documented Integumentary/Breasts Skin/Breast: Reports system reviewed and no additional complaints, except as documented Neurologic Neurologic: Reports system reviewed and no additional complaints, except as documented Hematologic/Lymphatic On Anticoagulants: No Patient History Medical History HTN (hypertension) Rheumatoid arthritis Surgical History (Updated 10/13/21 @ 12:32 by Arlene Fields MD) H/O gastric sleeve Hx of unilateral salpingectomy Social History household members: significant other and children Smoking Status: Former smoker Tobacco: How many years used: 3 second hand exposure: No alcohol intake: current substance use type: does not use Smoking Status: Former smoker alcohol intake frequency: holidays/special occasions only Substance Use Type: marijuana Exam Initial Vital Signs Initial Vital Signs: Vital Signs Temperature 99.9 F H 07/09/22 02:50 Pulse Rate 101 H 07/09/22 02:50 Respiratory Rate 20 07/09/22 02:50 Blood Pressure 149/77 H 07/09/22 02:50 Pulse Oximetry 98 07/09/22 02:50 Oxygen Delivery Method Room Air 07/09/22 02:50 HENMT Head: normal to inspection and normocephalic Back/Spine/Pelvis Back: No CVA tenderness Neuro General: patient alert, patient awake and moves all extremities Course Orders Ordered: Discontinued Medications Cephalexin HCl (Cephalexin 250 Mg Capsule) 500 mg PO NOW ONE Stop: 07/09/22 03:21 Vital Signs Vital signs: Vital Signs - 8 hr 07/09/22 02:50 Temperature 99.9 F H Pulse Rate 101 H Respiratory Rate 20 Blood Pressure 149/77 H Pulse Oximetry 98 Oxygen Delivery Method Room Air Medical Decision Making Medical Records Medical records reviewed: Yes I reviewed the patient's medical records. Lab Data Lab results reviewed: Yes I reviewed the patient's lab results. Labs: Point of Care Testing Test Results Negative Urine Dip Bedside Urine Glucose Negative Bedside Urine Bilirubin + 1 Bedside Urine Ketone + 15 Urine Specific [place] 1.03 Bedside Urine Occult Blood +/- Bedside Urine pH 6.0 Bedside Urine Protein + 30 Bedside Urine Urobilinogen - Negative Bedside Urine Nitrite - Negative Bedside Urine Leukocytes - Negative Esterase Point of care testing: Point of Care Testing Test Results Negative Urine Dip Bedside Urine Glucose Negative Bedside Urine Bilirubin + 1 Bedside Urine Ketone + 15 Urine Specific [place] 1.03 Bedside Urine Occult Blood +/- Bedside Urine pH 6.0 Bedside Urine Protein + 30 Bedside Urine Urobilinogen - Negative Bedside Urine Nitrite - Negative Bedside Urine Leukocytes - Negative Esterase MDM Narrative Medical decision making narrative: She seems to not be improving all that much on the Macrobid is now she is having fevers and lower back discomfort. No CVA tenderness. Is having nausea but no vomiting. Low suspicion for pyelo. The urine culture from yesterday is still pending. We did discuss how potentially the culture from yesterday could be skewed somewhat because she had been on antibiotics for 24 hours prior to this sample being taken. Because her symptoms are not improving it is not unreasonable to switch her to a new antibiotic. She also understands that she potentially could need a 3rd antibiotic if the urine culture from yesterday results is something that is not susceptible to Keflex. She understands this. She was given a dose here in the emergency department and will send home with a prescription for remainder of the course. No indication for admission to the hospital. No indication for IV antibiotics. No indication for blood work. She was given return precautions. She expressed understanding and agreement. Discharge Plan Departure Patient Disposition: Home Clinical Impression: Urinary tract infection Instructions: DI for Urinary Tract Infection (UTI) Activity Restrictions/Additional Instructions: There was a urine culture that is still pending from the walk-in clinic from yesterday. We will switch you from the Macrobid to a new antibiotic. This was sent to the pharmacy of your choice. Stop taking the Macrobid and start the new antibiotic. Use the nausea medication as needed. Return to the emergency department for any new or worsening symptoms Prescriptions: New cephalexin 500 mg capsule 500 mg PO BID 7 Days Qty: 13 0RF No Action methotrexate (PF) 20 mg/0.4 mL auto-injector 20 mg SUBCUT QWEEK Patient Comments: saturday. Has not been taking due to being sick losartan 50 MG tablet 50 mg PO DAILY Qty: 0 oxycodone-acetaminophen [Percocet] 5-325 mg tablet 1 tab PO Q4H PRN (Reason: pain) Qty: 20 0RF folic acid 1 mg Tablet 1 mg PO DAILY norethindrone (contraceptive) [Ortho Micronor] 0.35 mg tablet 0.35 mg PO DAILY Qty: 84 3RF Rx Instructions: start day 1 of menstrual cycle Referrals: Reanna Nguyễn MD [Primary Care Provider] - Stand Alone Forms: Patient Portal/API
== END 2022-07-09 03:53 | disposition home or self-care (01) ==
PROVIDERS: Emergency Provider Emergency Medicine; PCP Family Medicine
DX: N39.0 Urinary tract infection, site not specified (principal)
CPT/HCPCS: 81003; 81025; 99282

== ENCOUNTER → 2022-09-14 08:22 | Outpatient (CLI) | payer OTHER, SELFPAY ==
[2021-10-11 15:52] VITALS: BMI 27.6
--- NOTE | 2022-09-14 | DI.ECHO.S_ITS ---
[facility]---------+ [facility] +---------+ : : [address] : : : : [id number] : : : : Phone: [phone]---------+ Echocardiogram Report + + :Name: ENMANUEL HARDEN Study Date: 09/14/2022 Height: 64 in : :[facility] ReadingLocation: Weight: 145 lb : : Gender: Female BSA: 1.7 m2 : :: 1980 Age: 42 yrs BP: 183/106 mmHg: :Reason For Study: Cardiac Murmur : :Ordering Physician: Hubert, : :Mattie Performed By: Adriane Licona : :Referring: MATTIE HILLMAN : + + Interpretation Summary Patient is hypertensive on exam 183/106mmHg. The ejection fraction is estimated to be 60-65%. There is mild concentric left ventricular hypertrophy. Diastolic parameters suggest probable normal left ventricular diastolic function and normal filling pressures. The right ventricular systolic function is normal. The right ventricular systolic pressure is estimated to be at least 17 mmHg based on an estimated right atrial pressure of 3 mm Hg. No significant valvular abnormality. Procedure: A two-dimensional transthoracic echocardiogram with color flow and Doppler was performed. The study quality was technically adequate. There is no prior echocardiogram noted for this patient. The patient was in normal sinus rhythm during the exam. Left Ventricle: The left ventricle is normal in size. There is mild concentric left ventricular hypertrophy. The ejection fraction is estimated to be 60-65%. There are no obvious focal wall motion abnormalities noted but poor endocardial definition reduces the sensitivity for the detection of such. Diastolic parameters suggest probable normal left ventricular diastolic function and normal filling pressures. Right Ventricle: The right ventricle is normal size. The right ventricular systolic function is normal. Atria: The left atrium is mildly dilated. Right atrial size is normal. There is no Doppler evidence for an interatrial shunt. Mitral Valve: The mitral valve leaflets appear borderline thickened, but open well. There is no mitral valve stenosis. There is trace mitral regurgitation. Aortic Valve: The aortic valve is trileaflet. The aortic valve opens well. There is no aortic valve stenosis. There is trace aortic regurgitation. Tricuspid Valve: The tricuspid valve is normal. There is no tricuspid stenosis. There is trace tricuspid regurgitation. The right ventricular systolic pressure is estimated to be at least 17 mmHg based on an estimated right atrial pressure of 3 mm Hg. Pulmonic Valve: The pulmonic valve leaflets are thin and pliable; valve motion is normal. There is no pulmonic valvular stenosis. There is no pulmonic valvular regurgitation. Great Vessels: The aortic root is normal size. The ascending aorta is normal in size. The pulmonary artery is normal size. The IVC is of normal diameter and collapses greater than 50% with a sniff. This suggests a low right atrial pressure of 3 mm Hg. Pericardium/ Pleura There is no pericardial effusion. There is no pleural effusion. MMode/2D Measurements & Calculations LVIDd: 4.3 cm LVOT diam: 1.9 cm LVIDs: 2.6 cm Ao root diam: 2.9 cm FS: 39.5 % asc Aorta Diam: 3.3 cm IVSd: 1.5 cm LVPWd: 1.1 cm LV everett. diameter/BSA (cm/m^2): 2.5 LV sys. diameter/BSA (cm/m^2): 1.5 LA A2 area: 21.9 cm2 RA long axis: 4.5 cm LA A4 area: 17.7 cm2 RA area: 12.9 cm2 LA length (vol): 5.7 cm RA vol: 31.3 ml LA vol: 57.7 ml RA : 18.3 ml/m2 LA vol index: 33.8 ml/m2 RVD1 (basal): 3.7 cm LVLs ap4: 6.7 cm LVLd ap2: 7.4 cm TAPSE_phl: 2.4 cm LVLs ap2: 6.5 cm Doppler Measurements & Calculations Ao V2 max: 158.0 cm/sec LVOT Max Juliocesar: 101.0 cm/sec Ao V2 mean: 111.0 cm/sec LV V1 max P.1 mmHg Ao max P.0 mmHg LV V1 VTI: 22.3 cm Ao mean P.0 mmHg EDDIE(I,D): 1.8 cm2 Ao V2 VTI: 35.1 cm EDDIE(V,D): 1.8 cm2 sev ratio: 0.64 EDDIE indexed to BSA (cm^2/m^2): 1.1 AI P1/2t: 668.1 msec AI dec slope: 185.0 cm/sec2 MV E max juliocesar: 108.0 cm/sec TR max juliocesar: 188.0 cm/sec MV A max juliocesar: 94.7 cm/sec TR max P.1 mmHg MV E/A: 1.1 PA V2 max: 111.0 cm/sec Med Peak E' Juliocesar: 7.3 cm/sec PA V2 mean: 83.6 cm/sec E/E' med: 14.9 PA mean P.0 mmHg Lat Peak E' Juliocesar: 10.0 cm/sec PA pr(Accel): 5.2 mmHg E/E' lat: 10.8 E/e' average: 12.9 MV dec time: 0.26 sec SV(LVOT): 63.2 ml AV P1/2t-pr_phl: 670.0 msec AV VR_phl: 0.64 EDDIE(VTI)/BSA_phl: 1.1 Reading Physician:KATHIE
== END ==
PROVIDERS: PCP Family Medicine; Referring Provider Internal Medicine; Visit Provider Internal Medicine
DX: R01.1 Cardiac murmur, unspecified (principal); I51.7 Cardiomegaly
CPT/HCPCS: 93306

== ENCOUNTER → 2022-09-28 08:49 | Outpatient (CLI) | payer OTHER, SELFPAY ==
[2021-10-11 15:52] VITALS: BMI 27.6
[2022-09-28 09:34] LABS: Add Manual Diff / Slide Review NO; Basophils Absolute Auto 100 /uL (0-100); Basophils Percent Auto 0.7 % (0-2); Eosinophils Absolute Auto 100 /uL (0-450); Eosinophils Percent Auto 1.6 % (2-4); Hematocrit 32.8 % (36-46); Hemoglobin 10.9 g/dL (12.0-16.0); Lymphocytes Absolute Auto 2000 /uL (1100-4500); Lymphocytes Percent Auto 26.1 % (25-40); Mean Corpuscular HGB Conc 33.3 % (30-36); Mean Corpuscular Hemoglobin 25.6 PG (26-34); Mean Corpuscular Volume 76.7 fL (80-100); Monocytes Absolute Auto 300 /uL (0-900); Monocytes Percent Auto 4.1 % (3-14); Neutrophils Absolute Auto 5200 /uL (1500-7000); Neutrophils Percent Auto 67.5 % (50-75); Platelet Count 316 X10^3/uL (150-400); Red Blood Cell Count 4.27 X10^6/uL (4.0-5.2); Red Cell Distribution Width 15.1 % (11.6-14.8); White Blood Cell Count 7.7 X10^3/uL (4.5-11.0)
[2022-09-28 10:24] LABS: Erythrocyte Sedimentation Rate 21 MM/HR (0-20)
[2022-09-28 10:36] LABS: Alanine Aminotransferase 15 IU/L (<35); Albumin Globulin Ratio 1.4 (1.0-2.8); Alkaline Phosphatase 48 U/L (38-126); Aspartate Aminotransferase 16 IU/L (14-36); BUN Creatinine Ratio 20.9 (6-22); Bilirubin Total 1.1 mg/dL (0.2-1.3); Blood Urea Nitrogen 14 mg/dL (7-17); C-Reactive Protein Quant < 0.5 mg/dL (<1.0); Carbon Dioxide 28 mmol/L (22-32); Chloride 102 mmol/L (98-107); Estimated Glomerular Filt Rate > 60 mL/min (>60); Globulin 2.8 g/dL (1.7-4.1); Glucose 98 mg/dL (70-100); HEMOLYSIS < 15 (0-50); Sodium 137 mmol/L (137-145); Total Protein 6.8 g/dL (6.3-8.2)
== END ==
PROVIDERS: PCP Family Medicine; Referring Provider Specialist/Technologist Athletic Trainer; Visit Provider Specialist/Technologist Athletic Trainer
DX: M06.09 Rheumatoid arthritis without rheumatoid factor, multiple sites (principal); Z79.631 Long term (current) use of antimetabolite agent; D84.9 Immunodeficiency, unspecified
CPT/HCPCS: 36415; 80053; 85025; 85651; 86140

== ENCOUNTER → 2022-11-24 09:09 | Outpatient (CLI) | payer OTHER, SELFPAY ==
[2021-10-11 15:52] VITALS: BMI 27.6
== END ==
PROVIDERS: PCP Family Medicine; Visit Provider Physician Assistant
DX: R30.0 Dysuria (principal)
CPT/HCPCS: 87086; 87210

== ENCOUNTER → 2023-05-27 07:48 | Outpatient (CLI) | payer OTHER, SELFPAY ==
[2021-10-11 15:52] VITALS: BMI 27.6
[2023-05-27 09:12] LABS: Add Manual Diff / Slide Review NO; Basophils Absolute Auto 100 /uL (0-100); Basophils Percent Auto 0.7 % (0-2); Eosinophils Absolute Auto 200 /uL (0-450); Eosinophils Percent Auto 2.3 % (2-4); Hematocrit 35.3 % (36-46); Lymphocytes Absolute Auto 2400 /uL (1100-4500); Mean Corpuscular HGB Conc 33.9 % (30-36); Mean Corpuscular Volume 82.5 fL (80-100); Monocytes Absolute Auto 400 /uL (0-900); Monocytes Percent Auto 5.4 % (3-14); Neutrophils Absolute Auto 4500 /uL (1500-7000); Neutrophils Percent Auto 59.6 % (50-75); Platelet Count 298 X10^3/uL (150-400); Red Blood Cell Count 4.29 X10^6/uL (4.0-5.2); Red Cell Distribution Width 13.5 % (11.6-14.8); White Blood Cell Count 7.6 X10^3/uL (4.5-11.0)
[2023-05-27 10:02] LABS: Alanine Aminotransferase 13 IU/L (<35); Albumin Globulin Ratio 1.3 (1.0-2.8); Alkaline Phosphatase 40 U/L (38-126); Aspartate Aminotransferase 17 IU/L (14-36); BUN Creatinine Ratio 21.2 (6-22); Bilirubin Total 1.1 mg/dL (0.2-1.3); Blood Urea Nitrogen 14 mg/dL (7-17); C-Reactive Protein Quant 0.9 mg/dL (<1.0); Calcium 8.9 mg/dL (8.4-10.2); Carbon Dioxide 26 mmol/L (22-32); Chloride 100 mmol/L (98-107); Estimated Glomerular Filt Rate > 60 mL/min (>60); Glucose 115 mg/dL (70-100); HEMOLYSIS < 15 (0-50); Potassium 4.2 mmol/L (3.4-5.1); Sodium 135 mmol/L (137-145)
[2023-05-27 10:23] LABS: Erythrocyte Sedimentation Rate 18 MM/HR (0-20)
== END ==
PROVIDERS: PCP Family Medicine; Referring Provider Specialist/Technologist Athletic Trainer; Visit Provider Specialist/Technologist Athletic Trainer
DX: M06.09 Rheumatoid arthritis without rheumatoid factor, multiple sites (principal); Z79.631 Long term (current) use of antimetabolite agent; D84.9 Immunodeficiency, unspecified
CPT/HCPCS: 36415; 80053; 85025; 85651; 86140

== ENCOUNTER → 2023-11-15 09:32 | Outpatient (CLI) | payer OTHER, SELFPAY ==
[2021-10-11 15:52] VITALS: BMI 27.6
[2023-11-15 11:02] LABS: Hematocrit 36.1 % (36-46); Hemoglobin 12.1 g/dL (12.0-16.0); Mean Corpuscular HGB Conc 33.5 % (30-36); Mean Corpuscular Hemoglobin 27.6 PG (26-34); Mean Corpuscular Volume 82.4 fL (80-100); Platelet Count 310 X10^3/uL (150-400); Red Blood Cell Count 4.38 X10^6/uL (4.0-5.2); Red Cell Distribution Width 14.3 % (11.6-14.8); White Blood Cell Count 8.2 X10^3/uL (4.5-11.0)
[2023-11-15 11:22] LABS: Alanine Aminotransferase 13 IU/L (<35); Albumin 4.2 g/dL (3.5-5.0); Albumin Globulin Ratio 1.6 (1.0-2.8); Alkaline Phosphatase 56 U/L (38-126); Aspartate Aminotransferase 18 IU/L (14-36); BUN Creatinine Ratio 18.9 (6-22); Bilirubin Total 0.8 mg/dL (0.2-1.3); Blood Urea Nitrogen 17 mg/dL (7-17); C-Reactive Protein Quant < 0.5 mg/dL (<1.0); Calcium 9.2 mg/dL (8.4-10.2); Carbon Dioxide 22 mmol/L (22-32); Chloride 107 mmol/L (98-107); Estimated Glomerular Filt Rate > 60 mL/min (>60); Globulin 2.6 g/dL (1.7-4.1); Glucose 107 mg/dL (70-100); HEMOLYSIS < 15 (0-50); Potassium 4.3 mmol/L (3.4-5.1); Sodium 136 mmol/L (137-145); Total Protein 6.8 g/dL (6.3-8.2)
[2023-11-15 11:51] LABS: Erythrocyte Sedimentation Rate 32 MM/HR (0-20)
== END ==
PROVIDERS: PCP Family Medicine; Referring Provider Specialist/Technologist Athletic Trainer; Visit Provider Specialist/Technologist Athletic Trainer
DX: M06.09 Rheumatoid arthritis without rheumatoid factor, multiple sites (principal)
CPT/HCPCS: 36415; 80053; 85027; 85651; 86140

== ENCOUNTER → 2024-04-16 13:35 | Outpatient (CLI) | payer OTHER, SELFPAY ==
[2021-10-11 15:52] VITALS: BMI 27.6
--- NOTE | 2024-04-16 13:37 | DI.NM.S_ITS ---
PROCEDURE: NM EXERCISE TREADMILL NON NUC COMPARISON: None. INDICATIONS: Chest Pain FINDINGS: Rest ECG sinus rhythm 63 bpm. Renato protocol 9:12, maximum heart rate 163 bpm (92% peak predicted), peak blood pressure 180/102, 10.1 METS, ISAIAH -7%. Exercise ECG sinus tachycardia, no ST segment changes. 5 beat run PSVT in recovery. The patient did not report exercise-induced chest discomfort. IMPRESSION: Low risk study. No evidence of exercise-induced ischemia. There was note of a brief run of PSVT in recovery. Normal heart rate response. Hypertensive response. Good exercise capacity. Dictated by: Delmy Henderson D.O. on 04/16/2024 at 16:23 Approved by: Delmy Henderson D.O. on 04/16/2024 at 16:26
--- NOTE | 2024-04-16 13:37 | DI.MG.S_ITS ---
BILATERAL DIGITAL DIAGNOSTIC MAMMOGRAM 3D/2D: 04/16/2024 CLINICAL: Baseline. Left breast mass. No prior exams were available for comparison. The breasts are heterogeneously dense, which may obscure small masses (category c / 51-75% glandular tissue). There is a 2 cm x 1.6 cm oval equal density mass with a circumscribed margin and coarse calcifications in the left breast at 11 o'clock middle depth. This correlates as palpated and with area of clinical concern. No other significant masses, calcifications, or other findings are seen in either breast. IMPRESSION: INCOMPLETE: NEED ADDITIONAL IMAGING EVALUATION The 2 cm x 1.6 cm oval equal density mass in the left breast is indeterminate. An ultrasound is recommended for further evaluation and is scheduled to immediately follow this examination. Based on the Tyrer Cuzick model (a risk assessment model) the patient's lifetime risk is 16.3% and her 10 year risk is 2.7%. According to the ACR, ACS, and NCCN guidelines, an annual breast MRI exam along with mammogram is recommended if the patient's lifetime risk is 20% or greater. This exam was interpreted at Station ID: [id number]. NOTE: For mammograms, a report in lay terms will be sent to the patient. Approximately 15% of breast malignancies will not be visualized mammographically. In the management of a palpable breast mass, a negative mammogram must not discourage biopsy of a clinically suspicious lesion. Electronically Signed By: Mauri Harris M.D. at/:04/16/2024 14:28:47 letter sent: Additional Imaging Needed ACR BI-RADS Category 0: Incomplete: Need Additional Imaging Evaluation
--- NOTE | 2024-04-16 13:37 | DI.US.S_ITS ---
LIMITED ULTRASOUND OF LEFT BREAST: 04/16/2024 CLINICAL: Palpable left breast lump. Comparison is made to exams dated: 04/16/2024 mammogram, 12/17/2014 ultrasound - [facility], 01/02/2011 [facility], 08/12/2008 ultrasound biopsy, 03/25/2008, and 08/12/2008 ultrasound biopsy - [facility]. Color flow and real-time ultrasound of the left breast 11 o'clock region were performed. Burris scale images of the real-time examination were reviewed. There is a 2.2 cm x 1.6 cm x 2 cm wider than tall oval mass in the left breast at 11 o'clock middle depth 8 cm from the nipple. This oval mass is hypoechoic. This correlates as palpated, with mammography findings, area of clinical concern, and the most likely site of previous biopsy. There are coarse calcifications within the mass as seen mammographically. Color flow imaging demonstrates that there is an adjacent vascularity. This mass is very similar in size and shape with previously described mass labeled at the 10 o'clock position, 12 cm from nipple This is the only mass seen in the left breast and given non-dense breast tissue, no other obscured mass is seen today. IMPRESSION: BENIGN There is no sonographic evidence of malignancy. 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 This was previously biopsied in 2008. Recommend clinical follow up for persistent or worsening symptoms with instructions to return sooner if development of any clinically suspicious findings in the interim. A 1 year screening mammogram is recommended. Findings and recommendations were conveyed to the patient during today's evaluation. This exam was interpreted at Station ID: [id number]. Electronically Signed By: Mauri Harris M.D. at/:04/16/2024 15:11:47 letter sent: Clinical Evaluation ACR BI-RADS Category 2: Benign
== END ==
LOC: MAMMO 13:35
PROVIDERS: PCP Family Medicine; Referring Provider Family Medicine; Visit Provider Family Medicine
DX: R92.8 Other abnormal and inconclusive findings on diagnostic imaging of breast (principal); N63.22 Unspecified lump in the left breast, upper inner quadrant; R07.9 Chest pain, unspecified; R92.333 Mammographic heterogeneous density, bilateral breasts; N64.4 Mastodynia
CPT/HCPCS: 76642; 77066; 93017; G0279

== ENCOUNTER 2024-05-12 08:33 | Emergency (ER) | payer OTHER, SELFPAY ==
[2021-10-11 15:52] VITALS: BMI 27.6
[2024-05-12 08:58] VITALS: BP 190/91; PULSE 102; RESP 14; TEMP 37; O2SAT 99
--- NOTE | 2024-05-12 09:32 | ED_ITS ---
HPI - Back Pain/Injury General Chief Complaint: Back Pain/Injury Stated Complaint: Lower Back Pain x3 days Time Seen by Provider: 05/12/24 09:30 Source: patient, RN notes reviewed and old records reviewed Mode of arrival: Ambulatory Limitations: no limitations History of Present Illness HPI Narrative: 44-year-old female history of rheumatoid arthritis, hypertension on methotrexate and losartan has a prior gastric sleeve. Patient presents with complaint of low back pain. Patient states she has had low back issues with sciatica in the past but states it feels little bit different rather than running down her leg is low back kind of L5 region over her buttocks and towards the buttocks both. She would does not really radiate down her legs. Is painful to lay flat or sit for prolonged periods she finds it uncomfortable to walk lifting her legs is also a little bit uncomfortable. Denies any numbness tingling or weakness. No loss of bowel or bladder control, no saddle anesthesia. Denies any fevers. No chest pain or shortness of breath. She has had some nausea related with the pain. No vomiting. No dysuria, urgency or frequency. Patient states she was currently taking methotrexate, prednisone PRN, losartan, amlodipine, folic acid and oral contraceptive. States she was never had any back surgeries or interventions had prior weight loss surgery with a gastric sleeve had a prior ovarian excision for enlarged ovarian cyst. States no known drug allergies she does tolerate steroids but avoids oral steroids because of her prior gastric sleeve. Former smoker, has a couple glasses of wine 2 or 3 times weekly, marijuana but no recreational or IV drugs. She does follow with rheumatology at [facility]. Dr. Nguyễn is her primary care physician. Related Data Home Medications Medication Instructions Recorded Confirmed losartan 50 mg tablet 50 mg PO DAILY ##0 08/27/16 11/24/22 methotrexate (PF) 20 mg/0.4 mL 20 mg SUBCUT QWEEK 03/11/18 11/24/22 subcutaneous auto-injector folic acid 1 mg tablet 1 mg PO DAILY 04/04/18 11/24/22 Previous Rx's Medication Instructions Recorded norethindrone (contraceptive) 0.35 0.35 mg PO DAILY #84 tabs 10/13/21 mg tablet (Ortho Micronor) oxycodone-acetaminophen 5 mg-325 1 tab PO Q4H PRN pain #20 tabs mg tablet (Percocet) fluconazole 150 mg tablet 150 mg PO ONCE #1 tab 11/24/22 cyclobenzaprine 10 mg tablet 10 mg PO TID PRN muscle spasm #10 05/12/24 tabs oxycodone 5 mg tablet 5 mg PO TID PRN pain #10 tabs 05/12/24 Allergies Allergy/AdvReac Type Severity Reaction Status Date / Time NSAIDS (Non-Steroidal AdvReac Verified 05/12/24 09:03 Anti-Inflamma Review of Systems Review of Systems ROS Unobtainable: All systems reviewed & are unremarkable except as noted in HPI and below Patient History Medical History HTN (hypertension) Rheumatoid arthritis Surgical History Hx of unilateral salpingectomy H/O gastric sleeve Social History household members: significant other and children Smoking Status: Former smoker Tobacco: How many years used: 3 second hand exposure: No alcohol intake: current substance use type: does not use Smoking Status: Former smoker tobacco type: cigarettes alcohol intake frequency: holidays/special occasions only Exam Narrative Exam Narrative: GENERAL: Alert and oriented x three, female in distress HEENT: Head normocephalic, atraumatic, EOMI, pupils reactive, face symmetric, moist mucous membranes NECK: Supple, full range of motion CARDIOVASCULAR: Regular rate and rhythm without murmurs, rubs or gallops. RESPIRATORY: Breath sounds equal bilaterally, no wheezes rales or rhonchi. ABDOMEN: Soft, nontender. Normoactive bowel sounds all 4 quadrants. No guarding or rebound, rigidity, no mass : No CVA tenderness BACK: No cervical, thoracic or lumbar vertebral point tenderness. Patient has normal range of motion. Patient standing on exam has normal range of motion of both lower extremities but does not appear uncomfortable. No rash or skin changes. No reproducible pain on exam. Rectal exam is deferred. Muscle strength is 5/5 in lower extremities, Dorsalis pedis and tibialis pulses are 2+ and lower extremities. Sensation is intact in the lower extremities. EXTREMITIES: Normal range of motion, no clubbing or edema. Neurovascularly intact NEUROLOGICAL: Cranial nerves II through XII grossly intact. Moving all extremities SKIN: Warm, dry, no petechiae, no rashes or lesions. Initial Vital Signs Initial Vital Signs: Vital Signs Temperature 98.6 F 05/12/24 08:58 Pulse Rate 102 H 05/12/24 08:58 Respiratory Rate 14 05/12/24 08:58 Blood Pressure 190/91 H 05/12/24 08:58 Pulse Oximetry 99 05/12/24 08:58 Oxygen Delivery Method Room Air 05/12/24 08:58 Course Orders Ordered: ED Orders 05/12/24 09:44 XR LSPINE 2-3 views [XR lumbar spine 2-3V] Stat Discontinued Medications Ketorolac Tromethamine (Ketorolac 30 Mg/Ml Vial) 30 mg IM NOW ONE Stop: 05/12/24 09:45 Last Admin: 05/12/24 10:03 Dose: 30 mg Documented By: MARCELL Vital Signs Vital signs: Vital Signs - 8 hr 05/12/24 11:07 05/12/24 11:08 05/12/24 11:08 Pulse Rate 90 Blood Pressure 155/91 H Pulse Oximetry 96 99 MDM - Back Pain/Injury Lab Data Labs: Lab Results 05/12/24 Range/Units 08:55 Urine Test Negative (Negative) Urine Dip Bedside Urine Glucose Negative Bedside Urine Bilirubin - Negative Bedside Urine Ketone - Negative Urine Specific [place] 1.000 Bedside Urine Occult Blood - Negative Bedside Urine pH 7.0 Bedside Urine Protein - Negative Bedside Urine Urobilinogen - Negative Bedside Urine Nitrite - Negative Bedside Urine Leukocytes - Negative Esterase MDM Narrative Medical decision making narrative: 44-year-old female history of rheumatoid arthritis states she had known disc bulging tender 20 years ago has had sciatica issues in the past but states it is a little bit different is across both sides of her lower back without any radiation down her legs. No other red symptoms. Patient is on methotrexate and prednisone PRN does have a history of rheumatoid so lumbar spine imaging was ordered. L-spine x-ray mild leftward curvature of the lumbar spine as above mild degenerative endplate changes throughout lumbar spine no acute vertebral body compression fracture. Toradol IM. Patient does feel improved afterwards. Discussed plan for follow up with primary care and/or rheumatology short course of narcotic pain medication and muscle relaxers. Discharge Plan Departure Patient Disposition: Home Clinical Impression: Low back pain Instructions: DI for Low Back Pain Activity Restrictions/Additional Instructions: Follow up with your physician for recheck if your symptoms are persisting. You can take acetaminophen up to a 1000 mg every 6 hours. If inadequate for pain you can take oxycodone 1-2 tablets every 6 hours as needed. This medication can make you sleepy do not drive, perform hazardous activities or make any major decisions while taking it. This medication will make you constipated please take a stool softener once to twice daily until stools are soft and regular. You can take muscle relaxer as needed, take 1 tablet every 8 hours. This medication can also make you sleepy do not drive, perform hazardous activities or make any major decisions while taking it. Prescription sent to [facility] in [place] Please return for fevers, rapidly worsening symptoms, loss of bowel or bladder control, inability to lift or move your legs, inability to walk, new weakness or numbness or other new or concerning changes. Prescriptions: New cyclobenzaprine 10 mg tablet 10 mg PO TID PRN (Reason: muscle spasm) Qty: 10 0RF oxycodone 5 mg tablet 5 mg PO TID PRN (Reason: pain) Qty: 10 0RF No Action methotrexate (PF) 20 mg/0.4 mL auto-injector 20 mg SUBCUT QWEEK Patient Comments: saturday. Has not been taking due to being sick fluconazole 150 mg tablet 150 mg PO ONCE Qty: 1 0RF Rx Instructions: as a single dose Do not take with oxycodone losartan 50 MG tablet 50 mg PO DAILY Qty: 0 oxycodone-acetaminophen [Percocet] 5-325 mg tablet 1 tab PO Q4H PRN (Reason: pain) Qty: 20 0RF folic acid 1 mg Tablet 1 mg PO DAILY norethindrone (contraceptive) [Ortho Micronor] 0.35 mg tablet 0.35 mg PO DAILY Qty: 84 3RF Rx Instructions: start day 1 of menstrual cycle Referrals: Reanna Nguyễn MD [Primary Care Provider] - Stand Alone Forms: Patient Portal/API/Survey, Work Release Note
[2024-05-12 09:44] LABS: Pregnancy Test Urine Negative (Negative)
--- NOTE | 2024-05-12 09:44 | DI.RAD.S_ITS ---
PROCEDURE: XR LUMBAR SPINE 2-3V INDICATIONS: low back pain, hx RA TECHNIQUE: 3 views of the lumbar spine were acquired. COMPARISON: None. FINDINGS: Bones: 5 [id number] vertebrae are present. There is mild leftward curvature of lumbar spine centered at L3-4 level. Mild degenerative endplate changes are noted throughout lumbar spine. No vertebral body compression fractures. No suspicious bony lesions. Soft tissues: Overlying bowel gas pattern is normal. No suspicious soft tissue calcifications. IMPRESSION: Mild leftward curvature of lumbar spine as above. Mild degenerative endplate changes throughout lumbar spine. No acute vertebral body compression fracture. Dictated by: Harry Mulligan M.D. on 05/12/2024 at 10:09 Approved by: Harry Mulligan M.D. on 05/12/2024 at 10:09
[2024-05-12] MEDS: KETOROLAC 30 MG/ML VIAL IM (10:03)
[2024-05-12 11:07] VITALS: O2SAT 96
[2024-05-12 11:08] VITALS: BP 155/91; PULSE 90; O2SAT 99
== END 2024-05-12 11:40 | disposition home or self-care (01) ==
PROVIDERS: Emergency Provider Emergency Medicine; PCP Family Medicine
DX: M54.50 Low back pain, unspecified (principal); I10 Essential (primary) hypertension; Z98.84 Bariatric surgery status; M06.9 Rheumatoid arthritis, unspecified
CPT/HCPCS: 72100; 81003; 81025; 96372; 99283; 99284; J1885

== ENCOUNTER → 2024-06-22 08:17 | Outpatient (CLI) | payer OTHER, SELFPAY ==
[2021-10-11 15:52] VITALS: BMI 27.6
--- NOTE | 2024-06-22 09:10 | DI.MRI.S_ITS ---
PROCEDURE: MR LUMBAR SPINE WO CON INDICATIONS: RA W NEG RHEUMATOID FACTOR,RADICULOPATHY TECHNIQUE: Noncontrast sagittal T1 spin echo and T2 fast echo, sagittal STIR, and T2 fast spin echo through the lumbar spine. In cases with scoliosis, additional coronal T2 fast spin echo may be performed. COMPARISON: None. FINDINGS: Image quality: Excellent. Alignment and Curvature: There is normal bony alignment. Bone Marrow: L4 vertebral body hemangioma. Marrow is of normal overall signal. No acute vertebral body compression fractures. Spinal Cord: Conus medullaris terminates at the L1 level. Visualized cord demonstrates normal signal and size. Paraspinous Soft Tissues: No paravertebral masses. T12-L1: Normal appearance. L1-L2: Normal appearance. L2-L3: Normal appearance. L3-L4: Mild facet arthropathy. No central canal or neural foraminal stenosis. L4-L5: Normal appearance. L5-S1: Mild facet arthropathy. No central canal or neural foraminal stenosis. IMPRESSION: Mild degenerative changes of the lower lumbar spine. No central canal or neural foraminal stenosis. Dictated by: Yobany Gorman M.D. on 06/22/2024 at 9:51 Approved by: Yobany Gorman M.D. on 06/22/2024 at 9:54
== END ==
PROVIDERS: PCP Family Medicine; Referring Provider Family Medicine; Visit Provider Family Medicine
DX: M47.27 Other spondylosis with radiculopathy, lumbosacral region (principal); M06.09 Rheumatoid arthritis without rheumatoid factor, multiple sites
CPT/HCPCS: 72148

== ENCOUNTER → 2024-08-28 15:11 | Outpatient (CLI) | payer OTHER, SELFPAY ==
[2021-10-11 15:52] VITALS: BMI 27.6
[2024-08-28 16:27] LABS: Add Manual Diff / Slide Review NO; Basophils Absolute Auto 100 /uL (0-100); Basophils Percent Auto 0.6 % (0-2); Eosinophils Absolute Auto 100 /uL (0-450); Eosinophils Percent Auto 1.2 % (2-4); Hematocrit 34.7 % (36-46); Hemoglobin 12.1 g/dL (12.0-16.0); Lymphocytes Absolute Auto 2100 /uL (1100-4500); Lymphocytes Percent Auto 23.3 % (25-40); Mean Corpuscular HGB Conc 34.8 % (30-36); Mean Corpuscular Hemoglobin 28.7 PG (26-34); Mean Corpuscular Volume 82.3 fL (80-100); Monocytes Absolute Auto 500 /uL (0-900); Monocytes Percent Auto 5.7 % (3-14); Neutrophils Absolute Auto 6300 /uL (1500-7000); Neutrophils Percent Auto 69.2 % (50-75); Platelet Count 346 X10^3/uL (150-400); Red Blood Cell Count 4.22 X10^6/uL (4.0-5.2); White Blood Cell Count 9.1 X10^3/uL (4.5-11.0)
[2024-08-28 16:51] LABS: Alanine Aminotransferase 17 IU/L (<35); Albumin 4.3 g/dL (3.5-5.0); Albumin Globulin Ratio 1.8 (1.0-2.8); Alkaline Phosphatase 52 U/L (38-126); Amylase 61 U/L (30-110); Aspartate Aminotransferase 21 IU/L (14-36); BUN Creatinine Ratio 22.2 (6-22); Bilirubin Total 0.7 mg/dL (0.2-1.3); Blood Urea Nitrogen 18 mg/dL (7-17); C-Reactive Protein Quant < 0.5 mg/dL (<1.0); Calcium 9.4 mg/dL (8.4-10.2); Carbon Dioxide 26 mmol/L (22-32); Chloride 102 mmol/L (98-107); Estimated Glomerular Filt Rate > 60 mL/min (>60); Globulin 2.4 g/dL (1.7-4.1); Glucose 131 mg/dL (70-99); HEMOLYSIS < 15 (0-50); Lipase 227 U/L (23-300); Potassium 3.9 mmol/L (3.4-5.1); Sodium 137 mmol/L (137-145); Total Protein 6.7 g/dL (6.3-8.2)
[2024-08-28 17:17] LABS: Thyroid Stimulating Hormone 0.254 uIU/mL (0.47-4.68)
[2024-08-28 17:51] LABS: Erythrocyte Sedimentation Rate 31 MM/HR (0-20)
== END ==
PROVIDERS: PCP Family Medicine; Referring Provider Specialist/Technologist Athletic Trainer; Visit Provider Family Medicine
DX: Z13.0 Encounter for screening for diseases of the blood and blood-forming organs and certain disorders involving the immune mechanism (principal); M06.09 Rheumatoid arthritis without rheumatoid factor, multiple sites
CPT/HCPCS: 36415; 80053; 82150; 83690; 84443; 85025; 85651; 86140

== ENCOUNTER → 2024-09-23 08:08 | Outpatient (CLI) | payer OTHER, SELFPAY ==
[2021-10-11 15:52] VITALS: BMI 27.6
--- NOTE | 2024-09-23 08:09 | DI.ECHO.S_ITS ---
[place] [facility]+ [facility] : : [address] : : [place] : : [id number] : : Phone: [phone] Echocardiogram Report + + :Name: ENMANUEL HUNTER Study Date: 09/23/2024 Height: 64 in : :[facility] ReadingLocation: Weight: 165 lb : : Gender: Female BSA: 1.8 m2 : :: 1980 Age: 44 yrs BP: 132/90 mmHg: :Reason For Study: MURMUR, LVH, HYPERTENSION : :Ordering Physician: SANDRA, : :SHILOH Performed By: Edwin Hernandez : :Referring: SHILOH FLORES : + + Interpretation Summary The left ventricle is normal in size. The ejection fraction is estimated to be 60-65%. There are no focal wall motion abnormalities. Diastolic parameters suggest probable normal left ventricular diastolic function and normal filling pressures. The right ventricle is normal in size and function. The right ventricular systolic pressure is estimated to be at least 3 mmHg based on an estimated right atrial pressure of 3 mm Hg. The left atrium is mildly dilated. There is no pulmonic valvular regurgitation. The aortic root is normal size. Procedure: A two-dimensional transthoracic echocardiogram with color flow and Doppler was performed. The study quality was technically good. Comparison is made with the echocardiogram of . The patient was in normal sinus rhythm during the exam. Left Ventricle: The left ventricle is normal in size. Left ventricular wall thickness is mild-moderately increased. There is no ventricular septal defect visualized. The ejection fraction is estimated to be 60-65%. There are no focal wall motion abnormalities. Diastolic parameters suggest probable normal left ventricular diastolic function and normal filling pressures. Right Ventricle: The right ventricle is normal in size and function. Atria: The left atrium is mildly dilated. Right atrial size is normal. There is no Doppler evidence for an interatrial shunt. Mitral Valve: The mitral valve leaflets appear normal. There is no evidence of stenosis, fluttering, or prolapse. There is trace mitral regurgitation. Aortic Valve: The aortic valve is trileaflet. The aortic valve opens well. The aortic valve is slightly calcified. There is trace aortic regurgitation. Tricuspid Valve: The tricuspid valve leaflets are thin and pliable. There is a trace or physiologic amount of tricuspid regurgitation. The right ventricular systolic pressure is estimated to be at least 3 mmHg based on an estimated right atrial pressure of 3 mm Hg. Pulmonic Valve: The pulmonic valve is not well seen, but is grossly normal. There is no pulmonic valvular regurgitation. There is no significant valvular heart disease. Great Vessels: The aortic root is normal size. The dimensions of the ascending aorta are normal. The pulmonary artery is normal size. The IVC is of normal diameter and collapses greater than 50% with a sniff. This suggests a low right atrial pressure of 3 mm Hg. Pericardium/ Pleura There is no pericardial effusion. There is no pleural effusion. MMode/2D Measurements & Calculations LVIDd: 4.6 cm LVOT diam: 1.9 cm LVIDs: 3.2 cm Ao root diam: 2.7 cm FS: 29.2 % asc Aorta Diam: 3.0 cm EPSS: 0.46 cm IVSd: 1.6 cm LVPWd: 1.1 cm LV everett. diameter/BSA (cm/m^2): 2.5 LV sys. diameter/BSA (cm/m^2): 1.8 LA A2 area: 22.1 cm2 RA long axis: 4.0 cm LA A4 area: 20.3 cm2 RA area: 9.8 cm2 LA length (vol): 5.4 cm RA vol: 20.3 ml LA vol: 70.2 ml RA : 11.3 ml/m2 LA vol index: 38.9 ml/m2 IVC diam: 1.6 cm RVD1 (basal): 2.9 cm RVD2 (mid): 1.9 cm TAPSE: 2.8 cm Doppler Measurements & Calculations Ao V2 max: 187.3 cm/sec LVOT Max Juliocesar: 113.8 cm/sec Ao V2 mean: 123.4 cm/sec LV V1 max P.2 mmHg Ao max P.0 mmHg LV V1 VTI: 26.6 cm Ao mean P.0 mmHg EDDIE(I,D): 2.0 cm2 Ao V2 VTI: 39.4 cm EDDIE(V,D): 1.8 cm2 sev ratio: 0.67 EDDIE indexed to BSA (cm^2/m^2): 1.1 MV E max juliocesar: 94.1 cm/sec PA V2 max: 121.9 cm/sec MV A max juliocesar: 70.3 cm/sec PA V2 mean: 86.7 cm/sec MV E/A: 1.3 PA mean P.3 mmHg Med Peak E' Juliocesar: 9.5 cm/sec PA pr(Accel): 39.6 mmHg E/E' med: 10.0 Lat Peak E' Juliocesar: 8.5 cm/sec E/E' lat: 11.1 E/e' average: 10.5 MV dec time: 0.23 sec SV(LVOT): 77.1 ml Reading Physician:05:56 PM
== END ==
LOC: ECHO 08:08
PROVIDERS: PCP Family Medicine; Referring Provider Family Medicine; Visit Provider Family Medicine
DX: I51.7 Cardiomegaly (principal); I10 Essential (primary) hypertension; R01.1 Cardiac murmur, unspecified
CPT/HCPCS: 93306